=== PATIENT | female | born 1970 | race Caucasian/White ===

== ENCOUNTER 2021-12-23 05:39 | Day surgery (SDC) | payer OTHER, SELFPAY ==
[2021-12-23] VITALS (7 sets, daily range): BP systolic 99–120; BP diastolic 60–78; PULSE 65–85; RESP 16–18; TEMP 37.1–37.4; O2SAT 95–100; BMI 29.0
[2021-12-23] MEDS: Lactated Ringers 1,000 ML 15 ML IV (06:23)
[2021-12-23 06:28] LABS: Internal QC Validated? YES +Cl - CLEAR BKGD; Pregnancy, Urine Negative Negative
--- NOTE | 2021-12-23 06:30 | EGD_PTH ---
PATIENT: ANNE MARIE ODOM LOC: EN U#:[id number] AGE/SX: 51/F ROOM: RE12/23/[address]: Dr. Conrad Lyman DO : 1970 BED: DIS: 12/23/2021 SPEC #: [id number] RECD: 12/23/21 10:58 STATUS: JENNIFER ARJUN #: [id number] EVELIN: 12/23/21 06:[address]: Conrad Lyman DEPT: SURGICAL PATHOLOGY RECD BY: [place] ENTERED: 12/23/21 13:00 SP TYPE: EGD BIOPSY [facility] DR: Dr. Dot Rabago, DO Tissues: A - Gastric mucous membrane B - Esophagus, NOS C - COLON BIOPSY D - Rectum, NOS Procedures: Special Stain Group II Surgery Specimen Level IV Alcian Blue/PAS (control) HEADER OPERATION: Colonoscopy, EGD ([facility]) with biopsies PRE-OP DIAGNOSIS: GERD, family history of colon cancer TISSUE SUBMITTED: A ? Antrum biopsy for H. pylori and path, B ? Distal esophagus biopsy, C ? Splenic flexure polyp, D ? Rectum polyp MICROSCOPIC DIAGNOSIS A. Gastric antrum, biopsy: Mild chronic gastritis. See comment. B. Distal esophagus, biopsy: Gastroesophageal junctional mucosa with mild chronic inflammation. No evidence of goblet cell metaplasia. See comment. C. Colonic polyp at splenic flexure, biopsy: Tubular adenoma. D. Rectal polyp, biopsy: Fragments of tubular adenoma. AM:shan 12/24/2021 COMMENT A. The results of immunohistochemistry for Helicobacter pylori will be reported separately ([id number]). B. Alcian blue/PAS stain with matched control supports the above diagnosis. MICROSCOPIC DESCRIPTION Slides are reviewed. GROSS DESCRIPTION A - Received in fixative is one container labeled with the patient's name and designated antrum biopsy. The specimen consists of two irregular fragments of light vance soft tissue that in aggregate measure 0.6 x 0.3 x 0.1 cm. The specimen is totally submitted in one cassette. B - Received in fixative is one container labeled with the patient's name and designated distal esophagus biopsy. The specimen consists of multiple irregular fragments of light vance soft tissue that in aggregate measure 1 x 0.5 x 0.1 cm. The specimen is totally submitted in one cassette. C - Received in fixative is one container labeled with the patient's name and designated splenic flexure polyp. The specimen consists of a vance-pink polyp measuring 0.5 x 0.5 x 0.3 cm. The specimen is totally submitted in one cassette. D - Received in fixative is one container labeled with the patient's name and designated rectum polyp. The specimen consists of a vance-pink polyp measuring 0.5 x 0.5 x 0.4 cm. The specimen is totally submitted in one cassette. / SJ:rg 12/23/2021 TC:3 CPT: 97746 x4, 50524
--- NOTE | 2021-12-23 06:30 | IMM_PTH ---
PATIENT: ANNE MARIE ODOM LOC: EN U#:[id number] AGE/SX: 51/F ROOM: RE12/23/[address]: Dr. Conrad Lyman DO : 1970 BED: DIS: 12/23/2021 SPEC #: [id number] RECD: 12/23/21 13:44 STATUS: JENNIFER REQ #: [id number] EVELIN: 12/23/21 06:[address]: Conrad Lyman DEPT: IMMUNOHISTOCHEMISTRY RECD BY: Josselyn Capone ENTERED: 12/23/21 13:45 SP TYPE: IMMUNO OTHR DR: Dr. Dot Rabago, DO Tissues: A - Stomach, NOS Procedures: H Pylori (initial) PHYSICIAN & INSTITUTION [place] [id number] SPECIMEN INFORMATION: Tissue Source: A ? Antrum biopsy Clinical Info: GERD, family history of colon cancer Specimen Number: [id number] CPT code: 04410 METHODOLOGY: Deparaffinized sections of prefer/formalin-fixed tissue or PAP/DQ stained slides are incubated with monoclonal/polyclonal antibodies/oligonucleotide probes. Localization is made via biotin free immunoperoxidase method. Appropriate controls are performed and reacted as expected. Results on target cell population are indicated in the following table: RESULTS: ANTIBODY / CLONE RESULT Block A H Pylori (polyclonal) negative These tests were developed and their performance characteristics determined by [facility]. They may not have been cleared or approved by the U.S. Food and Drug Administration. The FDA has determined that such clearance or approval is not necessary. The above immunohistochemical/dualISH markers are ordered and reviewed by the Pathologist. INTERPRETATION: A. Antrum, biopsy: Negative for Helicobacter pylori organisms. AM:shan 12/24/2021
--- NOTE | 2021-12-23 06:34 | HP.PCM_ITS ---
History and Physical Date of Admission: 12/23/21 ALEXANDREA ODOM, is a 51 F who presents to the office today for Initial consultation. Alexandrea established with this clinic 09.27.21 as a self-referral for screening colonoscopy. She has never had a colonoscopy performed. Onset age 50, she began eating a lot of Taquis around that time. She noticed an increase of symptoms and stopped eating them. Also notes issue with spicy food and red sauces. Symptoms well managed with omeprazole 20mg BID when she remembers to take it. Symptoms occur about once a week with very infrequent severe reflux. Family history includes mother age 77 with colon cancer s/p surgery. ROS Const Constitutional: No fatigue, malaise, night sweats, weight change, sleep problems, abnormal sleep pattern or change in appetite ENT ENT: No difficulty swallowing, hoarseness or sore throat Cardio Cardiology: No chest pain at rest Gastro GI: No abdominal pain, belching, bloating, change in bowel habits, change in stool character, coffee ground emesis, constipation, cramping, diarrhea, heartburn, difficulty swallowing, feeling full early, excessive flatus, incontinent of stools, Vomiting blood/hematemesis, Blood in stool, loose stools, Black,tarry stools, nausea/dyspepsia, pain with swallowing, vomiting or other Musc Musculoskeletal: No joint pain Skin Skin: No yellowing of the eye or itchy eyes Neuro Neurology: No behavioral changes Psych Psychiatric: No abnormal sleep pattern, No anxiety, No behavioral changes, No change in appetite and No depression Endo Endocrine: No fatigue or weight change Aller/Imm Allergy/Immunologic: No itchy eyes Inocente/Lymp Hematologic/Lymphatic: No easy bleeding or easy bruising Exam Const General: cooperative and comfortable Nutritional Appearance: average body habitus and well nourished [facility] Head: normal to inspection Ears: hearing grossly normal bilaterally Nose: external nose normal Face and sinus: normal facial exam Mouth: oral mucosae normal Throat: posterior oropharynx normal Eyes General: appearance normal, both eyes and all related structures Neck Neck: normal visual inspection Chest Chest palpation & inspection: normal inspection of the chest and normal palpation of entire chest wall Resp Effort & Inspection: normal respiratory effort Auscultation: Bilateral: Clear to Auscultation Cardio Palpation: normal PMI Rate: regular rate Rhythm: regular rhythm GI Inspection: normal to inspection Auscultation: normal bowel sounds Percussion: normal to percussion Palpation: no hepatosplenomegaly Skin General: no rashes or lesions noted Neuro General: patient alert Extrem General: normal to inspection Psych Affect: normal affect Quality Reporting Tobacco Screening ([facility] 138) Smoking Status: Never smoker Assessment and Plan Assessment and Plan (1) Family history of colon cancer: ?Status:?Acute ?Plan - Dr. Martines Friend, DO: This will be her first colonoscopy.? Her mother developed colon cancer at 77.? Even though that is a first-degree relative due to her advanced age above 75 we do not list that as a significant risk factor.? She was explained alternatives, risk, benefits including outstanding bleeding, infection, sepsis, perforation, need for emergent surgery .? She will have an ASA of 1. (2) GERD (gastroesophageal reflux disease): ?Status:?Acute ?Plan - Dr. Martines Friend, DO: She has a 2-year history of severe GERD that does very well with twice daily omeprazole 20mg.? I would recommend screening for Tyler's esophagus for her and I would switch her to 40 mg of pantoprazole once a day in the morning.? I would not give her twice a day PPI therapy unless she was determined to have long segment Tyler's esophagus, refractory to 40 mg of pantoprazole or equivalent dosing and refractory H2 receptor tejinder in the evening in the setting of known gastroparesis. I have re-examined the patient. There are no clinical changes since date of exam.
--- NOTE | 2021-12-23 07:08 | OP.EGD_ITS ---
Patient Name: Alexandrea Quezada Procedure Date: 12/23/2021 6:10 AM Date of : 1970 Age: 51 Procedure: Upper GI endoscopy Indications: Dyspepsia, Heartburn, Failure to respond to medical treatment Providers: Conrad Lyman DO Medicines: Monitored Anesthesia Care Patient Profile: This is a 51 year old female. Refer to note in patient chart for documentation of history and physical. Patient has symptoms of chronic dyspepsia. Complications: No immediate complications. Procedure: Pre-Anesthesia Assessment: - Prior to the procedure, a History and Physical was performed, and patient medications and allergies were reviewed. The risks and benefits of the procedure and the sedation options and risks were discussed with the patient. All questions were answered and informed consent was obtained. Patient identification and proposed procedure were verified by the physician in the pre-procedure area. Mental Status Examination: alert and oriented. Airway Examination: normal oropharyngeal airway and neck mobility. Respiratory Examination: clear to auscultation. CV Examination: normal. Prophylactic Antibiotics: The patient does not require prophylactic antibiotics. Prior Anticoagulants: The patient has taken no previous anticoagulant or antiplatelet agents. ASA Grade Assessment: II - A patient with mild systemic disease. After reviewing the risks and benefits, the patient was deemed in satisfactory condition to undergo the procedure. The anesthesia plan was to use moderate sedation / analgesia (conscious sedation). Immediately prior to administration of medications, the patient was re-assessed for adequacy to receive sedatives. The heart rate, respiratory rate, oxygen saturations, blood pressure, adequacy of pulmonary ventilation, and response to care were monitored throughout the procedure. The physical status of the patient was re-assessed after the procedure. After obtaining informed consent, the endoscope was passed under direct vision. Throughout the procedure, the patient's blood pressure, pulse, and oxygen saturations were monitored continuously. The Colonoscope was introduced through the mouth, and advanced to the second part of duodenum. The upper GI endoscopy was accomplished without difficulty. The patient tolerated the procedure well. Scope In: 6:40:25 AM Scope Out: 6:45:11 AM Total Procedure Duration Time 0 hours 4 minutes 46 seconds Findings: The Z-line was irregular and was found 37 cm from the incisors. Biopsies were taken with a cold forceps for histology. Verification of patient identification for the specimen was done. Estimated blood loss was minimal. A small hiatal hernia was present. Localized mild inflammation characterized by erosions and erythema was found in the gastric antrum. Biopsies were taken with a cold forceps for histology. Verification of patient identification for the specimen was done. Estimated blood loss was minimal. The first portion of the duodenum was normal. Biopsies were taken with a cold forceps for histology. Verification of patient identification for the specimen was done. Estimated blood loss was minimal. Impression: - Z-line irregular, 37 cm from the incisors. Biopsied. - Small hiatal hernia. - Gastritis. Biopsied. - Normal first portion of the duodenum. Biopsied. Recommendation: - Discharge patient to home. - Resume previous diet. - Continue present medications. - Await pathology results. Procedure Code(s): --- Professional --- 00094, Esophagogastroduodenoscopy, flexible, transoral; with biopsy, single or multiple CPT copyright 2017 [employer]. All rights reserved. The codes documented in this report are preliminary and upon technical services assistant review may be revised to meet current compliance requirements. Conrad Lyman DO 12/23/2021 7:07:38 AM This report has been signed electronically. Number of Addenda: 1 Note Initiated On: 12/23/2021 6:10 AM Addendum Number: 1 Addendum Date: 02/20/2022 6:26:16 AM MAC was used as sedation for this procedure. Conrad Lyman DO 02/20/2022 6:26:20 AM This report has been signed electronically.
--- NOTE | 2021-12-23 07:08 | OP.CCLET_ITS ---
02/20/2022 Dot Rabago Do Re : Upper GI endoscopy procedure for Alexandrea Quezada Dear Dr. Rabago This procedure was performed on Thursday, December 23, 2021. My impressions and recommendations are as follows: Impressions : - Z-line irregular, 37 cm from the incisors. Biopsied. - Small hiatal hernia. - Gastritis. Biopsied. - Normal first portion of the duodenum. Biopsied. Recommendations : - Discharge patient to home. - Resume previous diet. - Continue present medications. - Await pathology results. My findings are described in the full procedure note, which is enclosed. If I can be of further assistance, please feel free to contact me at . Sincerely, Conrad Lyman, 12/23/2021 7:07:38 AM This report has been signed electronically.
--- NOTE | 2021-12-23 07:10 | OP.CCLET_ITS ---
02/20/2022 Dot Rabago Do Re : Colonoscopy procedure for Alexandrea Quezada Dear Dr. Rabago This procedure was performed on Thursday, December 23, 2021. My impressions and recommendations are as follows: Impressions : - Diverticulosis in the recto-sigmoid colon, in the sigmoid colon, at the hepatic flexure and in the ascending colon. - Two 1 to 2 mm polyps in the rectum and at the splenic flexure, removed with a hot snare. Resected and retrieved. Recommendations : - Repeat colonoscopy in 5 years for surveillance. - Return to GI office. - Continue present medications. My findings are described in the full procedure note, which is enclosed. If I can be of further assistance, please feel free to contact me at . Sincerely, Conrad Lyman, 12/23/2021 7:10:03 AM This report has been signed electronically.
--- NOTE | 2021-12-23 07:10 | OP.COLON_ITS ---
Patient Name: Alexandrea Quezada Procedure Date: 12/23/2021 6:45 AM Date of : 1970 Age: 51 Procedure: Colonoscopy Indications: Screening for colorectal malignant neoplasm Providers: Conrad Lyman DO Medicines: Monitored Anesthesia Care Patient Profile: This is a 51 year old female. Refer to note in patient chart for documentation of history and physical. Patient has symptoms of chronic dyspepsia. Last Colonoscopy: none. The patient's first colonoscopy is today. Complications: No immediate complications. Procedure: Pre-Anesthesia Assessment: - Prior to the procedure, a History and Physical was performed, and patient medications and allergies were reviewed. The risks and benefits of the procedure and the sedation options and risks were discussed with the patient. All questions were answered and informed consent was obtained. Patient identification and proposed procedure were verified by the physician in the pre-procedure area. Mental Status Examination: alert and oriented. Airway Examination: normal oropharyngeal airway and neck mobility. Respiratory Examination: clear to auscultation. CV Examination: normal. Prophylactic Antibiotics: The patient does not require prophylactic antibiotics. Prior Anticoagulants: The patient has taken no previous anticoagulant or antiplatelet agents. ASA Grade Assessment: II - A patient with mild systemic disease. After reviewing the risks and benefits, the patient was deemed in satisfactory condition to undergo the procedure. The anesthesia plan was to use moderate sedation / analgesia (conscious sedation). Immediately prior to administration of medications, the patient was re-assessed for adequacy to receive sedatives. The heart rate, respiratory rate, oxygen saturations, blood pressure, adequacy of pulmonary ventilation, and response to care were monitored throughout the procedure. The physical status of the patient was re-assessed after the procedure. After I obtained informed consent, the scope was passed under direct vision. Throughout the procedure, the patient's blood pressure, pulse, and oxygen saturations were monitored continuously. The Colonoscope was introduced through the anus and advanced to the terminal ileum. The colonoscopy was performed without difficulty. The patient tolerated the procedure well. The quality of the bowel preparation was good. Scope In: 6:46:43 AM Scope Withdrawal Time 0 hours 8 minutes 46 seconds Scope Out: 6:59:24 AM Total Procedure Duration Time 0 hours 12 minutes 41 seconds Findings: The perianal and digital rectal examinations were normal. A few small and large-mouthed diverticula were found in the recto-sigmoid colon, sigmoid colon, hepatic flexure and ascending colon. Two sessile polyps were found in the rectum and splenic flexure. The polyps were 1 to 2 mm in size. These polyps were removed with a hot snare. Resection and retrieval were complete. Verification of patient identification for the specimen was done. Estimated blood loss was minimal. Impression: - Diverticulosis in the recto-sigmoid colon, in the sigmoid colon, at the hepatic flexure and in the ascending colon. - Two 1 to 2 mm polyps in the rectum and at the splenic flexure, removed with a hot snare. Resected and retrieved. Recommendation: - Repeat colonoscopy in 5 years for surveillance. - Return to GI office. - Continue present medications. Procedure Code(s): --- Professional --- 37345, Colonoscopy, flexible; with removal of tumor(s), polyp(s), or other lesion(s) by snare technique CPT copyright 2017 [employer]. All rights reserved. The codes documented in this report are preliminary and upon computer language coder review may be revised to meet current compliance requirements. Conrad Lyman DO 12/23/2021 7:10:03 AM This report has been signed electronically. Number of Addenda: 1 Note Initiated On: 12/23/2021 6:45 AM Addendum Number: 1 Addendum Date: 02/20/2022 6:26:28 AM MAC was used as sedation for this procedure. Conrad Lyman DO 02/20/2022 6:26:34 AM This report has been signed electronically.
== END 2021-12-23 07:50 | disposition home or self-care (01) ==
LOC: EN 05:40 → AC 05:43
PROVIDERS: Anesthesiology; PCP Family Medicine; Referring Provider Family Medicine; Visit Provider Internal Medicine Gastroenterology
PROC: 0DJD8ZZ Inspection of Lower Intestinal Tract, Via Natural or Artificial Opening Endoscopic (ICD-10-PCS; CPT 45378; principal; 2021-12-23 06:25)
DX: Z12.11 Encounter for screening for malignant neoplasm of colon (principal); D12.3 Benign neoplasm of transverse colon; D12.8 Benign neoplasm of rectum; K21.9 Gastro-esophageal reflux disease without esophagitis; K44.9 Diaphragmatic hernia without obstruction or gangrene; K29.50 Unspecified chronic gastritis without bleeding; K57.30 Diverticulosis of large intestine without perforation or abscess without bleeding; E78.00 Pure hypercholesterolemia, unspecified; E03.9 Hypothyroidism, unspecified; Z79.899 Other long term (current) drug therapy; Z80.0 Family history of malignant neoplasm of digestive organs
CPT/HCPCS: 43239; 45385; 81025; 88305; 88313; 88342; J7120; J2405

== ENCOUNTER 2022-10-02 20:30 | Observation (INO) | payer OTHER, SELFPAY ==
[2022-10-02 20:31] VITALS: BP 131/81; PULSE 102; RESP 18; TEMP 36.4; O2SAT 100; BMI 31.5
--- NOTE | 2022-10-02 20:52 | EX.ED.DYSGE1 ---
HPI History of Present Illness Chief Complaint: Flank Pain [facility] Medical History (Updated 01/06/22 @ 16:[address] Martines Friend, DO) Anxiety Back pain Gastric reflux High cholesterol Hypothyroid Wears dentures Home Medications atorvastatin 20 mg tablet 20 mg PO DAILY 12/19/21 [History Last Taken Unknown] biotin 1 mg capsule 1 mg PO DAILY 12/19/21 [History Last Taken Unknown] levothyroxine 100 mcg tablet 100 mcg PO DAILY 12/19/21 [History Last Taken Unknown] magnesium oxide 400 mg (241.3 mg magnesium) tablet 1 tab PO DAILY 12/19/21 [History Last Taken Unknown] xoujmxulsbdk-Nj-ejsm-minerals 18 mg-0.4 mg tablet 1 tab PO DAILY 12/19/21 [History Last Taken Unknown] pantoprazole 40 mg tablet,delayed release (Protonix) 40 mg PO BID #60 tabs 01/13/22 [Rx Last Taken Unknown] Allergy/AdvReac Type Severity Reaction Status Date / Time No Known Allergies Allergy Verified 10/02/22 20:33 Surgical History (Updated 12/19/21 @ 12:23 by Anjelica Quezada) No pertinent past surgical history Social History Smoking Status: Never smoker EXAM Physical Exam Const Vital Signs: 10/02/22 20:31 10/02/22 20:33 Temperature 97.6 F L Temperature Source Temporal Pulse Rate 102 H Respiratory Rate 18 Respiratory Effort Normal Non-Labored Respiratory Pattern Normal Blood Pressure 131/81 H Blood Pressure Mean 97 Pulse Ox 100 Oxygen Delivery Method Room Air [facility] Narrative Medical decision making narrative: HISTORY OF PRESENT ILLNESS: 52-year-old female here with flank pain. Patient states she was diagnosed with a 6 mm right-sided kidney stone earlier today. States since then she had increasing pain, nausea. REVIEW OF SYSTEMS: Pertinent positives: Flank pain, nausea and vomiting Pertinent negatives: syncope, CP, SOB. PHYSICAL EXAM: Nursing triage notes reviewed, Vital signs reviewed Constitutional: please see mdm HENT: MMM Eyes: Pupils equal round and reactive to light, Extraocular muscles intact Neck: No stridor, no JVD, full neck ROM Lungs: Clear to auscultation, No wheezing or rales. No increased work of breathing, no conversational dyspnea, no accessory muscle use, no nasal flaring. No respiratory distress noted Heart: Regular rate and rhythm, No murmurs, No rubs and No gallops, 2+ distal pulses (radial, femoral, posterior tibial) in all extremities Abdomen: Soft, there is no tenderness, rigidity, rebound or guarding, no obvious peritoneal signs, no palpable pulsatile abdominal masses, no auscultated abdominal bruit : Right CVA tenderness Extremities: No edema Neuro: No focal neurological deficits, cranial nerves II through XII intact, 5/5 strength in all extremities. Intact sensation to light touch in all extremities, 2+ reflexes bilateral patella tendons. Normal gait. No ataxia. Skin: No rash or lesions noted MEDICAL DECISION MAKING: Chief Complaint: Flank pain External records reviewed: No recent advanced imaging of the abdomen or pelvis noted in our chart. Per hospital records patient had a 6 mm distal ureteral stone with hydronephrosis diagnosed on outside CT scan MDM Narrative: Patient was initially hemodynamically stable, afebrile she is nontoxic-appearing however she is in acute distress from flank pain. She was recently diagnosed with a 6 mm kidney stone. I do not have these records available so I repeated the majority of the lab and imaging work-up including a CT scan. Labs without evidence of SAMUEL. There was evidence of systemic inflammation but no significant anemia. There is no acute kidney injury. Patient's urine did not show signs of infection. She was given IV narcotics, Toradol Zofran and fluids. She was reassessed she is still significant pain still nauseous. Requiring further IV narcotic pain medicine. Given intractable pain, relatively large stone, hydronephrosis and signs of systemic inflammation I recommended the patient be admitted to the hospital to undergo further pain control and to get urologic evaluation. I discussed the case with Dr. Driscoll who agreed to admit the patient. Factors affecting care: GERD Social determinants of health: None History obtained from others: The patient's family Shared decision making: I will have a discussion with the patient and or visitors regarding risk/benefits of further testing or admission. They will be made aware of of the risk/benefits inherent in this decision they will be given the opportunity to voice understanding. Consults: Urology Lab Data Attestation: I reviewed the patient's lab results. Lab results narrative: CBC with leukocytosis suggestive of systemic inflammation, no anemia or thrombocytopenia noted BMP without evidence of significant electrolyte abnormalities, no anion gap, no acute kidney injury. UA without evidence of infection noted ketones suggestive of malnutrition and dehydration Urine test is negative Labs: Laboratory Results - last 24 hr 10/02/22 10/02/22 10/02/22 20:56 20:56 20:56 WBC 16.3 H RBC 4.72 Hgb 14.0 Hct 43.1 MCV 91.3 MCH 29.7 MCHC 32.5 RDW Std Deviation 40.7 RDW Coeff of Vidhi 12.2 Plt Count 310 MPV 10.9 Immature Gran % (Auto) 0.700 Neut % (Auto) 90.8 H Lymph % (Auto) 5.4 L [place] % (Auto) 2.7 Eos % (Auto) 0.0 Baso % (Auto) 0.4 Absolute Neuts (auto) 14.8 H Absolute Lymphs (auto) 0.88 Nucleated RBC % 0 Sodium 139 Potassium 3.9 Chloride 109 H Carbon Dioxide 23.0 Anion Gap 7 BUN 12 Creatinine 0.78 Estim Creat Clear Calc 75.92 Est GFR (MDRD) Af Amer 99 Est GFR (MDRD) Non-Af 82 BUN/Creatinine Ratio 15.4 Glucose 121 H Calcium 8.7 Serum , Qual Urine Color Yellow Urine Clarity Sl. Cloudy Urine pH 6.5 Ur Specific Chrisman 1.015 Urine Protein 15 H Urine Glucose (UA) Normal Urine Ketones 150 A* Urine Occult Blood 25 H Urine Nitrite Negative Urine Bilirubin Negative Urine Urobilinogen Normal Ur Leukocyte Esterase Negative Urine RBC 0-5 SEEN Urine WBC 0 SEEN Ur Squamous Epith Cells 0-5 SEEN Urine Bacteria 0 SEEN Urine Mucus 0 SEEN 10/02/22 10/02/22 21:30 21:30 WBC RBC Hgb Hct MCV MCH MCHC RDW Std Deviation RDW Coeff of Vidhi Plt Count MPV Immature Gran % (Auto) Neut % (Auto) Lymph % (Auto) [place] % (Auto) Eos % (Auto) Baso % (Auto) Absolute Neuts (auto) Absolute Lymphs (auto) Nucleated RBC % Sodium Potassium Chloride Carbon Dioxide Anion Gap BUN Creatinine Estim Creat Clear Calc Est GFR (MDRD) Af Amer Est GFR (MDRD) Non-Af BUN/Creatinine Ratio Glucose Calcium Serum , Qual NEGATIVE Urine Color Yellow Urine Clarity Sl. Cloudy Urine pH 6.5 Ur Specific Chrisman 1.015 Urine Protein 15 H Urine Glucose (UA) 50 H Urine Ketones 150 A* Urine Occult Blood 10 H Urine Nitrite Negative Urine Bilirubin Negative Urine Urobilinogen Normal Ur Leukocyte Esterase Negative Urine RBC 0-5 SEEN Urine WBC 0-5 SEEN Ur Squamous Epith Cells 0 SEEN Urine Bacteria 0 SEEN Urine Mucus 0 SEEN Discharge Plan Triage Chief Complaint: Flank Pain ED Provider: Prashanth Meza Dx/Rx/DC Orders Prescriptions: No Action Women's Daily Multivitamin 18-0.4 mg Tablet 1 tab PO DAILY biotin 1 mg Capsule 1 mg PO DAILY atorvastatin 20 mg tablet 20 mg PO DAILY levothyroxine 100 mcg Tablet 100 mcg PO DAILY magnesium oxide 400 mg (241.3 mg magnesium) tablet 1 tab PO DAILY Label Comments: TAKE 1 TABLET BY MOUTH NIGHTLY AT BEDTIME pantoprazole [Protonix] 40 mg tablet,delayed release (DR/EC) 40 mg PO BID Qty: 60 2RF Rx Instructions: take two times a day for eight weeks then once a day. Primary Care Provider: NOT,DEFINED Referrals: NOT,DEFINED [Primary Care Provider] -
[2022-10-02] MEDS: 0.9% Normal Saline 1,000 ML 999 ML IV (20:54)
[2022-10-02] MEDS: Ondansetron 4 MG/2 ML Vial IV (20:54)
[2022-10-02] MEDS: Ketorolac 15 MG/ML Vial IV (20:54)
[2022-10-02] MEDS: Morphine 4 MG/ML Syringe IV (20:54)
[2022-10-02 21:02] LABS: Bacteria 0 SEEN /hpf (None Seen); Mucous, Urine 0 SEEN /hpf (<or=2+); White Blood Cells 0 SEEN /hpf (0-5)
[2022-10-02 21:04] LABS: Absolute Lymphocyte Count 0.88 X10^3/uL (0.83-4.51); Absolute Neutrophil Count 14.8 X10^3/uL (2.0-7.7); Basophil# 0.06 X10^3/uL; Basophil% 0.4 % (0-1); Hematocrit 43.1 % (37-47); Lymphocyte # 0.88 X10^3/ul (0.83-4.51); Lymphocyte % 5.4 % (19-41); Mean Corp Hgb Conc 32.5 g/dL (32-36); Mean Corpuscular Hgb 29.7 pg (27.0-32.0); Mean Corpuscular Volume 91.3 fL (81-99); Mean Platelet Vol. 10.9 fl (6.2-12.0); Monocyte# 0.44 X10^3/uL; Monocyte% 2.7 % (0-10); NRBC Flagged by Analyzer 0 % (0-5); Neutrophil # 14.81 X10^3/uL (2.7-7.7); Neutrophil % 90.8 % (47-70); Platelet Count 310 K/mm3 (150-450); RBC Distribution Width CV 12.2 % (11.6-14.6); RBC Distribution Width SD 40.7 fl (35.1-43.9); Red Blood Count 4.72 M/mm3 (4.2-5.4); White Blood Count 16.3 K/mm3 (4.4-11.0)
[2022-10-02 21:28] LABS: Color, Urine Yellow (Yellow); Glucose, Dipstick Normal (Normal); Leukocyte Esterase-Dipstick Negative /ul (Negative); Nitrite-Dipstick Negative (Negative); Occult Blood-Urine 25 /ul (Negative); Protein-Dipstick 15 mg/dl (Negative); Specific Gravity, Urine 1.015 (1.002-1.030); Urine Bilirubin Dipstick Negative (Negative); Urine Clarity Sl. Cloudy (Clear); Urine Urobilinogen Normal (Normal); Urine pH 6.5 (5.0 - 8.0)
[2022-10-02 21:29] LABS: Anion Gap 7 (5-15); BUN 12 mg/dL (7-18); BUN/Creat Ratio 15.4 RATIO (10-20); Calcium,Total 8.7 mg/dL (8.5-10.1); Chloride 109 mmol/L (98-107); Creatinine, Serum 0.78 mg/dL (0.55-1.02); EST Glomerular Filtration Rate 82 mL/min (>60); Est Glom Filt Rate - Afr Amer 99 mL/min (>60); Estimated Creatinine Clearance 75.92 ml/min; Glucose 121 mg/dL (74-106); Potassium 3.9 mmol/L (3.5-5.1); Sodium Level 139 mmol/L (136-145)
[2022-10-02 21:32] LABS: Ketone-Dipstick 150 mg/dl (Negative)
[2022-10-02 21:34] LABS: Red Blood Cells-Urine 0-5 SEEN /hpf (0-5); Squamous Epithelial Cells - UA 0-5 SEEN /hpf (5-10)
[2022-10-02 22:15] LABS: Bacteria 0 SEEN /hpf (None Seen); Mucous, Urine 0 SEEN /hpf (<or=2+); Squamous Epithelial Cells - UA 0 SEEN /hpf (5-10)
[2022-10-02 22:36] LABS: Color, Urine Yellow (Yellow); Glucose, Dipstick 50 mg/dl (Normal); Leukocyte Esterase-Dipstick Negative /ul (Negative); Nitrite-Dipstick Negative (Negative); Occult Blood-Urine 10 /ul (Negative); Protein-Dipstick 15 mg/dl (Negative); Specific Gravity, Urine 1.015 (1.002-1.030); Urine Bilirubin Dipstick Negative (Negative); Urine Clarity Sl. Cloudy (Clear); Urine Urobilinogen Normal (Normal); Urine pH 6.5 (5.0 - 8.0)
[2022-10-02 22:40] LABS: Ketone-Dipstick 150 mg/dl (Negative)
[2022-10-02 22:41] LABS: Internal QC Validated? YES +Cl - CLEAR BKGD; Pregnancy, Serum, hCG Quali. NEGATIVE Negative
[2022-10-02 22:50] LABS: Red Blood Cells-Urine 0-5 SEEN /hpf (0-5); White Blood Cells 0-5 SEEN /hpf (0-5)
[2022-10-02] MEDS: HYDROmorphone 0.5 MG/0.5 ML SYRINGE IV (23:36)
[2022-10-03] VITALS (11 sets, daily range): BP systolic 104–144; BP diastolic 64–84; PULSE 72–107; RESP 16–18; TEMP 36.6–37.3; O2SAT 92–100; BMI 31.8
[2022-10-03] MEDS: Lactated Ringers 1,000 ML 125 ML IV ×2 (01:06→08:15)
[2022-10-03] MEDS: Ketorolac 30 MG/ML Syringe IV ×2 (01:06→10:33)
[2022-10-03 02:06] LABS: Thyroid Stim Hormone (TSH) 2.12 uIU/mL (0.358-3.74)
[2022-10-03] MEDS: Morphine 2 MG/ML Syringe IV ×2 (05:18→08:16)
--- NOTE | 2022-10-03 11:04 | HP.PCM_ITS ---
HPI - General General Date of Admission: 10/02/22 Date of Service: 10/03/22 Chief Complaint: Right flank pain, abdominal pain, nausea and vomiting HPI Narrative The patient is a 52-year-old female who was at an outlying hospital 2 days ago a nd a CT scan was performed for flank pain and nausea and vomiting revealing a 6 mm distal right ureteral calculus. She presented to the emergency room in [place] with uncontrolled pain, nausea and vomiting. Her pain is still not well controlled despite intravenous medication administration. We discussed options and she has decided to proceed with surgical intervention. Informed consent was obtained. [facility] Medical History Anxiety Back pain Flank pain Gastric reflux High cholesterol Hypothyroid Ureteral calculus Wears dentures Home Medications atorvastatin 20 mg tablet 20 mg PO DAILY Check with primary doctor 12/19/21 [History Last Taken 10/02/22] biotin 1 mg capsule 1 mg PO DAILY Check with primary doctor 12/19/21 [History Last Taken 10/01/22] levothyroxine 100 mcg tablet 100 mcg PO DAILY Check with primary doctor 12/19/21 [History Last Taken 10/02/22] djurfchugkmo-Rd-nhva-minerals 18 mg-0.4 mg tablet 1 tab PO DAILY Check with primary doctor 12/19/21 [History Last Taken 09/26/22] Allergy/AdvReac Type Severity Reaction Status Date / Time No Known Allergies Allergy Verified 10/02/22 20:33 Surgical History No pertinent past surgical history Social History Smoking Status: Never smoker ROS Constitutional Constitutional: Reports systems reviewed and no addt'l complaints, except as documented; Denies fever(s) Eyes Eyes: Reports systems reviewed and no addt'l complaints, except as documented ENT HEENT: Reports systems reviewed and no addt'l complaints, except as documented Cardiovascular Cardiovascular: Reports systems reviewed and no addt'l complaints, except as documented, nausea and vomiting; Denies chest pain or dyspnea Respiratory/Chest Respiratory/Chest: Denies chest congestion, inability to speak or tachypnea Gastrointestinal Gastrointestinal: Reports abdominal pain, nausea and vomiting Genitourinary Genitourinary: Reports flank pain, low back pain, urinary frequency and urinary urgency; Denies hematuria Musculoskeletal Musculoskeletal: Reports systems reviewed and no addt'l complaints, except as d ocumented Integumentary Integumentary: Reports systems reviewed and no addt'l complaints, except as documented Neurologic Neurologic: Reports systems reviewed and no addt'l complaints, except as documen fer Psychiatric Psychiatric: Reports systems reviewed and no addt'l complaints, except as documented Endocrine Endocrinology: Reports systems reviewed and no addt'l complaints, except as documented Hematologic/Lymphatic Hematologic/Lymphatic: Reports systems reviewed and no addt'l complaints, except as documented Allergic/Immunologic Allergic/Immunologic: Reports systems reviewed and no addt'l complaints, except as documented Vital Signs Vital Signs Vital Signs: 10/02/22 20:31 10/02/22 20:33 10/03/22 00:14 Temperature 97.6 F L 97.8 F Temperature Source Temporal Temporal Pulse Rate 102 H 72 Respiratory Rate 18 18 Respiratory Effort Normal Non-Labored Respiratory Depth Respiratory Pattern Normal Blood Pressure 131/81 H 135/64 H Blood Pressure Mean 97 87 Blood Pressure Source Blood Pressure Position Blood Pressure Location Pulse Ox 100 98 Oxygen Delivery Method Room Air Room Air 10/03/22 00:31 10/03/22 00:25 10/03/22 05:21 Temperature 97.8 F 99.1 F Temperature Source Temporal Oral Pulse Rate 107 H 102 H Respiratory Rate 18 18 Respiratory Effort Normal Non-Labored Respiratory Depth Normal Respiratory Pattern Normal Blood Pressure 137/76 H 144/81 H Blood Pressure Mean 96 102 Blood Pressure Source Monitor Monitor Blood Pressure Position Semi-Fowlers Semi-Fowlers Blood Pressure Location Right Arm Right Arm Pulse Ox 100 99 Oxygen Delivery Method Room Air Room Air Room Air 10/03/22 05:20 10/03/22 07:05 10/03/22 08:19 Temperature Temperature Source Pulse Rate Respiratory Rate Respiratory Effort Normal Non-Labored Normal Non-Labored Respiratory Depth Normal Normal Respiratory Pattern Normal Normal Blood Pressure Blood Pressure Mean Blood Pressure Source Blood Pressure Position Blood Pressure Location Pulse Ox 99 Oxygen Delivery Method Room Air Room Air Room Air 10/03/22 10:30 Temperature 98.8 F Temperature Source Oral Pulse Rate 99 Respiratory Rate 18 Respiratory Effort Respiratory Depth Respiratory Pattern Blood Pressure 136/84 H Blood Pressure Mean 101 Blood Pressure Source Monitor Blood Pressure Position Semi-Fowlers Blood Pressure Location Right Arm Pulse Ox 99 Oxygen Delivery Method Room Air Weight Weight: 86.8 kg Body Mass Index (BMI) 31.8 Physical Exam Const alert and oriented x3 Orientation / Consciousness: awake, oriented to person and oriented to place HEENT normocephalic, head/scalp atraumatic, hearing grossly normal bilaterally and external nose normal Eyes General Eye: normal appearance of both eyes Neck General: normal visual inspection and trachea midline Lymph Lymphatic: no lymphedema noted Chest inspection of chest normal Resp normal respiratory effort, normal air movement and no retractions Cardio Rate: tachycardic GI soft to palpation and non-distended Bladder / Kidney Exam: CVA tenderness right Back/Spine General Back: CVA tenderness right Extremity normal to inspection Skin no rashes or lesions noted, no wounds, skin turgor normal, no jaundice, no petechiae and no mottling Neuro oriented x3, CN's II-XII intact bilaterally and moves all extremities Psych mental status grossly normal and thought process normal Results Lab / Micro Data Result Diagrams: 10/02/22 20:56 10/02/22 20:56 Labs: Laboratory Results - last 24 hr 10/02/22 20:56: Urine Color Yellow, Urine Clarity Sl. Cloudy, Urine pH 6.5, Ur Specific [place] 1.015, Urine Protein 15 H, Urine Glucose (UA) Normal, Urine Ketones 150 A*, Urine Occult Blood 25 H, Urine Nitrite Negative, Urine Bilirubin Negative, Urine Urobilinogen Normal, Ur Leukocyte Esterase Negative, Urine RBC 0-5 SEEN, Urine WBC 0 SEEN, Ur Squamous Epith Cells 0-5 SEEN, Urine Bacteria 0 SEEN, Urine Mucus 0 SEEN 10/02/22 20:56: WBC 16.3 H, RBC 4.72, Hgb 14.0, Hct 43.1, MCV 91.3, MCH 29.7, MCHC 32.5, RDW Std Deviation 40.7, RDW Coeff of Vidhi 12.2, Plt Count 310, MPV 10.9, Immature Gran % (Auto) 0.700, Neut % (Auto) 90.8 H, Lymph % (Auto) 5.4 L, [place] % (Auto) 2.7, Eos % (Auto) 0.0, Baso % (Auto) 0.4, Absolute Neuts (auto) 14.8 H, Absolute Lymphs (auto) 0.88, Nucleated RBC % 0 10/02/22 20:56: Sodium 139, Potassium 3.9, Chloride 109 H, Carbon Dioxide 23.0, Anion Gap 7, BUN 12, Creatinine 0.78, Estim Creat Clear Calc 75.92, Est GFR (MDRD) Af Amer 99, Est GFR (MDRD) Non-Af 82, BUN/Creatinine Ratio 15.4, Glucose 121 H, Calcium 8.7 10/02/22 20:56: TSH 2.12 10/02/22 21:30: Serum , Qual NEGATIVE 10/02/22 21:30: Urine Color Yellow, Urine Clarity Sl. Cloudy, Urine pH 6.5, Ur Specific [place] 1.015, Urine Protein 15 H, Urine Glucose (UA) 50 H, Urine Ketones 150 A*, Urine Occult Blood 10 H, Urine Nitrite Negative, Urine Bilirubin Negative, Urine Urobilinogen Normal, Ur Leukocyte Esterase Negative, Urine RBC 0-5 SEEN, Urine WBC 0-5 SEEN, Ur Squamous Epith Cells 0 SEEN, Urine Bacteria 0 SEEN, Urine Mucus 0 SEEN Assessment & Plan Assessment/Plan (1) Ureteral calculus: (2) Flank pain: PLAN: Plan proceed with cystoscopy with right ureteroscopy, holmium laser lithotripsy with stone basket extraction and right ureteral stent insertion. Informed consent has been obtained
--- NOTE | 2022-10-03 11:27 | DCINST_ITS ---
Discharge Instructions Diet Discharge Diet: No restrictions Activity Discharge Activity: Return to Normal Activity May resume sexual activity in: No Restrictions Dressing / Incision Call your doctor if you observe: Fever of 101 or Higher, Inability to urinate and Inability to have a bowel movement Follow Up Care Please Follow Up With: Macarena Driscoll MD When: Call office for appointment Test Results: Test results from this visit will be discussed in further detail at your follow- up appointment, if applicable. Discharge Plan Admission Admit Date/Time: 10/02/22 23:49 Attending Provider: Macarena Driscoll Discharge Orders/Prescriptions Prescriptions: New oxycodone-acetaminophen [Percocet] 5-325 mg tablet 1 tab PO Q8H PRN (Reason: pain) 3 Days Qty: 10 0RF cephalexin [cephalexin] 500 mg capsule 500 mg PO Q12 3 Days Qty: 6 0RF phenazopyridine [Pyridium] 200 mg tablet 200 mg PO TID PRN PRN (Reason: Bladder Spasms) 7 Days Qty: 30 0RF Continued dolopssvtinn-Go-xftj-minerals 18-0.4 mg Tablet 1 tab PO DAILY biotin 1 mg Capsule 1 mg PO DAILY atorvastatin 20 mg tablet 20 mg PO DAILY levothyroxine 100 mcg Tablet 100 mcg PO DAILY Referrals / Follow Up: NOT,DEFINED [Non-Staff] - Disposition Disposition (needs filled in before D/C Order can be placed): Home, Self Care
--- NOTE | 2022-10-03 11:30 | PCM.OPRPT ---
Report of Operation Date of Procedure: 10/03/22 Pre-Operative Diagnosis: Right ureteral calculus Post-Operative Diagnosis: Same, bladder lesion small Surgery/Procedure Performed:: Cystoscopy, right ureteroscopy, right ureteral stent insertion, bladder biopsy with fulguration Surgeon: Macarena Driscoll Type of Anesthesia: General Specimen's removed: Bladder biopsy Description of Procedure: The patient is a 52-year-old female with an obstructing right ureteral calculus. She presents for surgical intervention and informed consent has been obtained. The patient was taken to the operating room and placed on the operating room table. Anesthesia monitored the head, neck, airway, IV access and vital signs throughout the case. Once anesthesia was appropriately administered, the patient was placed into dorsolithotomy position and was prepped and draped in usual sterile fashion. The cystoscope was inserted through the urethra under direct visualization into the urinary bladder. The bladder mucosa was visualized in its entirety and a 3 to 4 mm lesion was identified on the right posterior bladder wall. The remainder of the exam was within normal limits. The right ureteral orifice was identified and intubated with an 0.035 Glidewire. The semirigid ureteroscope was then carefully advanced into the ureter. The ureter was very narrow and there was the beginning of a false passage. The decision was made to halt the procedure. The cystoscope was then used for placement of a 6 Armenian 24 cm JJ stent with good positioning in the renal pelvis as well as the urinary bladder. At this time a biopsy excision was performed on the small bladder lesion of the posterior bladder wall. The area was fulgurated for hemostatic control and tissue treatment. The patient's bladder was then emptied, and the patient was awakened and taken to the recovery room in good condition. There were no complications during this procedure. Grafts/Implants Used: 6 Armenian x 24 cm JJ stent Complications None Admit VTE Documentation VTE Present on Admission: Yes VTE Mechan Device Prophylaxis: SCD's VTE Pharm Prophylaxis ordered?: No Reason prophylaxis not ordered:: Treatment Not Indicated
--- NOTE | 2022-10-03 12:30 | BLA_PTH ---
PATIENT: ANNE MARIE ODOM LOC: MS3 U#:[id number] AGE/SX: 52/F ROOM: ND315 RE10/02/[address]: Dr. Macarena Driscoll MD : 1970 BED: 1 DIS: 10/03/2022 SPEC #: [id number] RECD: 10/03/22 14:35 STATUS: JENNIFER DÍAZ #: [id number] EVELIN: 10/03/22 12:[address]: Macarena Driscoll DEPT: SURGICAL PATHOLOGY RECD BY: [place] Tissues: Urinary bladder, NOS Procedures: Surgery Specimen Level IV HEADER OPERATION: Cysto, ureteroscopy, ureteral stent insertion, bladder biopsy PRE-OP DIAGNOSIS: Right ureteral calculus TISSUE SUBMITTED: Bladder biopsy MICROSCOPIC DIAGNOSIS Urinary bladder, biopsy: Minimal chronic inflammation. AM:shan 10/07/2022 MICROSCOPIC DESCRIPTION Slides are reviewed. GROSS DESCRIPTION Received in fixative is one container labeled with the patient's name and designated bladder biopsy. The specimen consists of one irregular fragment of light vance soft tissue that measures 0.2 x 0.1 x 0.1 cm. The specimen is totally submitted in one cassette. / SJ:shan 10/06/2022 TC:3 CPT: 55697
[2022-10-03] MEDS: Cefazolin 2 GM in 0.9% Normal Saline 100 ML IV (12:39)
--- NOTE | 2022-10-03 14:54 | PHA.DC.MC ---
Pharmacy Service has performed discharge medication reconciliation and counseling for this patient. Patient initially asked for medications [facility] because she was concerned we do not have her insurance information. This [facility] informed her one of the prescriptions can not be transferred. Patient okay with filling at [facility], would like meds to beds. This [facility] called retail and requested meds to beds. 1. CEPHALEXIN 500MG PO Q12 X 3 DAYS 2. OXYCODONE/ACETAMINOPHEN 5/325MG 1T PO Q8H PRN PAIN 3. PHENAZOPYRIDINE 200MG PO TID PRN BLADDER SPASMS The patient's discharge medication list was reviewed for discrepancies and discrepancies were resolved. Home Medications atorvastatin 20 mg tablet 20 mg PO DAILY Check with primary doctor 12/19/21 biotin 1 mg capsule 1 mg PO DAILY Check with primary doctor 12/19/21 levothyroxine 100 mcg tablet 100 mcg PO DAILY Check with primary doctor 12/19/21 svrtpizogmld-Mv-tdkb-minerals 18 mg-0.4 mg tablet 1 tab PO DAILY Check with primary doctor 12/19/21 cephalexin 500 mg capsule 500 mg PO Q12 post-operative 3 days #6 CAPSULES 10/03/22 oxycodone-acetaminophen 5 mg-325 mg tablet (Percocet) 1 tab PO Q8H PRN pain 3 days #10 tabs 10/03/22 phenazopyridine 200 mg tablet (Pyridium) 200 mg PO TID PRN PRN Bladder Spasms 7 days #30 tabs 10/03/22 The patient was counseled on the following discharge medications and changes in medications for homegoing were reviewed. The Reason for Use, instructions for use, and potential side effects were reviewed for all new medications. The patient's questions regarding all of their medications were answered. The patient was able to verbally demonstrate an understanding of their discharge medications.
[2022-10-03] MEDS: Acetaminophen 325 MG Tablet 650 MG PO (16:07)
== END 2022-10-03 20:00 | disposition home or self-care (01) ==
LOC: ED 21:29 → MS3 10-03 02:04
PROVIDERS: Anesthesiology; Admitting Provider Urology; Emergency Provider Emergency Medicine; Visit Provider Urology
PROC: 0TJ98ZZ Inspection of Ureter, Via Natural or Artificial Opening Endoscopic (ICD-10-PCS; CPT 52352; principal; 2022-10-03 12:20)
DX: N13.2 Hydronephrosis with renal and ureteral calculous obstruction (principal); K21.9 Gastro-esophageal reflux disease without esophagitis; E78.00 Pure hypercholesterolemia, unspecified; E03.9 Hypothyroidism, unspecified; Z79.899 Other long term (current) drug therapy; Z79.890 Hormone replacement therapy
CPT/HCPCS: 52204; 52332; 00910; 76000; 80048; 81001; 84443; 84703; 85025; 88305; 96374; 96375; 96376; 99221; 99284; J7030; J7120; A4216; C2617; G0378; J2405

== ENCOUNTER 2022-10-30 08:04 | Day surgery (SDC) | payer OTHER, SELFPAY ==
[2022-10-30] MEDS: Lactated Ringers 1,000 ML 15 ML IV (08:34)
[2022-10-30 08:35] VITALS: BP 111/71; PULSE 80; RESP 18; TEMP 36.6; O2SAT 96; BMI 31.1
[2022-10-30 08:47] LABS: Internal QC Validated? YES +Cl - CLEAR BKGD; Pregnancy, Urine Negative Negative
--- NOTE | 2022-10-30 09:02 | DCINST_ITS ---
Discharge Instructions Diet Discharge Diet: No restrictions Activity Discharge Activity: Return to Normal Activity Dressing / Incision Call your doctor if you observe: Fever of 101 or Higher, Inability to urinate and Inability to have a bowel movement Follow Up Care Please Follow Up With: Macarena Driscoll MD When: call office for appt Test Results: Test results from this visit will be discussed in further detail at your follow- up appointment, if applicable. Discharge Plan Admission Attending Provider: Macarena Driscoll Primary Care Provider: Care Miley Brady Primary Discharge Orders/Prescriptions Prescriptions: New hydrocodone-acetaminophen [hydrocodone-acetaminophen] 5-325 mg tablet 1 tab PO Q6H PRN PRN (Reason: Pain) 7 Days Qty: 20 0RF Continued axenicijgzcp-Vl-axtw-minerals 18-0.4 mg Tablet 1 tab PO DAILY biotin 1 mg Capsule 1 mg PO DAILY atorvastatin 20 mg tablet 20 mg PO DAILY levothyroxine 100 mcg Tablet 100 mcg PO DAILY phenazopyridine [Pyridium] 200 mg tablet 200 mg PO TID PRN PRN (Reason: Bladder Spasms) 7 Days Qty: 30 3RF Referrals / Follow Up: Care PhysicianMiley Primary [Primary Care Provider] - Disposition Disposition (needs filled in before D/C Order can be placed): Home, Self Care
--- NOTE | 2022-10-30 09:05 | PCM.OPRPT ---
Report of Operation Date of Procedure: 10/30/22 Pre-Operative Diagnosis: right ureteral and renal stones Post-Operative Diagnosis: same Surgery/Procedure Performed:: cystoscopy with right ureteroscopy, holmium laser lithotripsy, stone basket extraction, right ureteral stent change Surgeon: Macarena Driscoll Type of Anesthesia: General Specimen's removed: Right ureteral stone fragments Description of Procedure: The patient is a 52-year-old female who previously underwent a right ureteral stent insertion for an obstructing ureteral stone. She also has a large lower pole right renal calculus. She presents for ureteroscopy with laser lithotripsy of both stones as well as right ureteral stent change. Informed consent was obtained. The patient was taken to the operating room and placed on the operating room table. Anesthesia monitored the head, neck, airway, IV access and vital signs throughout the case. Once anesthesia was appropriately administered, the patient was placed into dorsolithotomy position was prepped and draped in usual sterile fashion. The cystoscope was inserted through the urethra under direct visualization into the urinary bladder which was found to be within normal limits. 2 separate 0.035 glide wires were inserted alongside the indwelling ureteral stent which was then removed using grasping forceps. The flexible ureteroscope was inserted over one of the wires and the other wire was used as a safety wire. The flexible ureteroscope easily gained access to the ureter where the large ureteral calculus was identified. Using a 270 ?m laser fiber, the stone was broken into 3 pieces which were removed using a basket. At this time the ureteroscope was advanced further into the renal pelvis and in the lower pole a large calculus was identified consistent with the one seen on imaging. The laser fiber was used to break the stone into dust and multiple small pieces. Lasering proceeded for at least 20 minutes. At the conclusion of the lasering, the pieces were very small and the decision was made to place a ureteral stent and allow passage. At this time the cystoscope and the safety wire were used to place a 4.5 Bulgarian by 24 cm JJ stent with good positioning in the renal pelvis as well as the urinary bladder. The patient's bladder was then emptied and the cystoscope was removed. The patient was awakened and taken to the recovery room in good condition. There were no complications during this procedure. Grafts/Implants Used: 4.5 x 24 cm JJ stent Complications None Admit VTE Documentation VTE Present on Admission: Yes VTE Mechan Device Prophylaxis: SCD's VTE Pharm Prophylaxis ordered?: No Reason prophylaxis not ordered:: Treatment Not Indicated
[2022-10-30] MEDS: Cefazolin 2 GM in 0.9% Normal Saline 100 ML IV (09:07)
[2022-10-30 10:37] VITALS: BP 111/71; BP 135/82; PULSE 92; RESP 20; TEMP 36.6; O2SAT 97
[2022-10-30 10:45] VITALS: BP 111/71; BP 127/74; PULSE 101; RESP 18; O2SAT 100
[2022-10-30 11:00] VITALS: BP 111/71; BP 115/70; PULSE 100; RESP 18; O2SAT 95
[2022-10-30 11:29] VITALS: BP 111/71; BP 117/68; PULSE 95; RESP 18; TEMP 37; O2SAT 98
[2022-10-30] MEDS: HYDROcodone Bitartrate/Apap 5/325 Tablet PO (12:12)
[2022-10-30 12:46] VITALS: BP 111/71; BP 129/67; PULSE 96; RESP 16; TEMP 36.6; O2SAT 96
== END 2022-10-30 12:49 | disposition home or self-care (01) ==
LOC: SDC 08:07 → AC 08:08
PROVIDERS: Anesthesiology; Referring Provider Urology; Visit Provider Urology
PROC: (CPT 52332; principal; 2022-10-30 09:35)
DX: N20.2 Calculus of kidney with calculus of ureter (principal); E78.00 Pure hypercholesterolemia, unspecified; E03.9 Hypothyroidism, unspecified; Z79.899 Other long term (current) drug therapy
CPT/HCPCS: 52356; 52352; 76000; 81025; 82360; J7120; J2405

== ENCOUNTER → 2022-11-05 | Outpatient (CLI) | payer OTHER, SELFPAY ==
--- NOTE | 2022-11-05 15:06 | RAD_ITS ---
INDICATION: URETERAL JOAN/RENAL CALC EXAMINATION/TECHNIQUE: X-RAY - XR Abdomen 1 View: 2 image AP abdomen COMPARISON: None FINDINGS: BOWEL GAS PATTERN: Nonspecific non-obstructive bowel gas pattern. No focal stomach or bowel distention. Large colonic stool burden. FREE AIR: Not well assessed on a supine view. ORGANOMEGALY: Not seen. CALCIFICATIONS: Right renal lower pole 3 mm stone. Left renal midpole 5 mm stone. Double-J right ureteral stent with ends projecting over the expected location of an external pelvis or proximal ureter and the bladder. 4 mm stone projects over the distal ureteral stent at the ureteral vesicle junction. Multiple left pelvic phlebolith. LOWER CHEST: No acute pathology. BONES AND SOFT TISSUES: Right pelvic surgical clip. Bilateral ESSURE devices project over the lateral sacrum. No acute osseous finding.. RAD/Abdomen Single View IMPRESSION: Right double-J ureteral stent in place with concern for 4 mm stone at the right ureterovesical junction. Left pelvic phleboliths. Large colonic stool burden. Electronically Signed: Bright Da Silva MD at 11:56 EDT ,
== END | disposition home or self-care (01) ==
PROVIDERS: Referring Provider Urology; Visit Provider Urology
DX: N20.2 Calculus of kidney with calculus of ureter (principal)
CPT/HCPCS: 74018

== ENCOUNTER 2024-11-29 14:07 | Observation (INO) | payer OTHER, SELFPAY ==
[2024-11-29 14:10] VITALS: BMI 31.9
--- NOTE | 2024-11-29 14:10 | EKG12_ITS ---
Test Reason : preop Blood Pressure : */* mmHG Vent. Rate : 88 BPM Atrial Rate : 88 BPM P-R Int : 186 ms QRS Dur : 88 ms QT Int : 372 ms P-R-T Axes : 40 -5 43 degrees QTcB Int : 450 ms Normal sinus rhythm Low voltage QRS Borderline ECG No previous ECGs available Confirmed by Elfego Marcum ([id number]), writer editor AKOSUA WATSON ([id number]) on 12/01/2024 8:33:28 AM Referred By: Mike Ashley Confirmed By: Elfego Marcum
--- NOTE | 2024-11-29 14:14 | HP.PCM_ITS ---
HPI - General General Date of Admission: 11/29/24 Date of Service: 11/29/24 Chief Complaint: left kidney stone HPI Narrative ANNE MARIE ODOM, is a 54 F who presents to [facility] with a left kidney stone severe pain, plan to admit for pain control and surgery tomorrow at [facility] for left stent and left ESWL. [facility] Medical History Kidney stone Restless legs Arthritis Non-smoker Kidney stones Flank pain Ureteral calculus (~10/30/22) Anxiety Wears dentures Hypothyroid High cholesterol Back pain Gastric reflux Home Medications ?Medication ?Instructions ?Recorded ?Last Taken ?Type atorvastatin 20 mg tablet 20 mg PO DAILY Check with pr joseary 12/19/21 10/02/22 History doctor biotin 1 mg capsule 1 mg PO DAILY Check with [facility] 12/19/21 10/01/22 History doctor levothyroxine 100 mcg tablet 100 mcg PO DAILY Check wi 12/19/21 10/02/22 History primary doctor [id number]-Tp-jzun-minerals 18 1 tab PO DAILY Check with primary 12/19/21 09/26/22 History mg-0.4 mg tablet doctor hydrocodone-acetaminophen 5-325mg 1 tab PO Q6H PRN PRN Pain 7 days 10/30/22 Unknown Rx 5mg-325mg #20 TABLETS phenazopyridine 200 mg tablet 200 mg PO TID PRN PRN Bl adder 10/30/22 Unknown Rx (Pyridium) Spasms 7 days #30 tabs Allergy/AdvReac Type Severity Reaction Status Date / Time No Known Allergies Allergy Verified 10/30/22 08:34 Surgical History No pertinent past surgical history Social History Smoking Status: Never smoker Results Medical Records Data Attestation: I reviewed the patient's medical records Assessment & Plan Assessment/Plan (1) Ureteral calculus: PLAN: admit for kidneys stone, npo plan for surgery tomorrow for stent and ESWL, KUB today (2) Kidney stone: (3) Family history of colon cancer: (4) GERD (gastroesophageal reflux disease): (5) Diverticulosis:
[2024-11-29] MEDS: 0.9% Normal Saline (1000mL) 1,000 ML 50 ML IV (14:26)
[2024-11-29 15:09] VITALS: BP 127/73; PULSE 94; RESP 16; TEMP 36.9; O2SAT 96
--- NOTE | 2024-11-29 16:00 | RAD_ITS ---
PROCEDURE: ABDOMEN SINGLE VIEW 11/29/2024 REASON FOR EXAM: KIDNEY STONE TECHNIQUE: ABDOMEN SINGLE VIEW COMPARISON: 11/05/2022 FINDINGS: Nonobstructive bowel gas pattern. No discernible free air. Interval removal of the prior right nephroureteral stent. Redemonstrated 9 mm calcific density in the left midabdomen likely reflecting a left renal stone. Previously noted subcentimeter stone in the right hemipelvis is no longer visualized. No additional renal stones appreciated. Pelvic phleboliths. Bilateral pelvic tubal occluding ensure devices. Osseous structures are unremarkable. RAD/Abdomen Single View IMPRESSION: 1. Interval removal of the previous right nephroureteral stent. 2. Previously seen 4 mm stone at the right UVJ no longer visualized. 3. Unchanged 9 mm stone within the left kidney. Reading Location: [id number]
[2024-11-29 19:55] VITALS: BP 143/75; PULSE 95; RESP 15; TEMP 37; O2SAT 96
[2024-11-29 20:10] VITALS: RESP 15; O2SAT 96
--- OUTSIDE RECORDS SUMMARY | 2024-11-29 21:52 | XMS RPT_ITS | CCD ---
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 Phone Friend, Conrad Attending Unavailable Dot Rabago Referring Unavailable Dot Rabago Primary Care Unavailable Friend, Conrad Attending Unavailable FriendConrad Consulting Unavailable Gem Dot Referring Unavailable Arianna Rabagona Primary Care Unavailable Care Physician, No Primary Primary Care Unava ilable Macarena Driscoll Referring Unavailable Macarena Driscoll Attending Unavailable FriendConrad Attending Unavailable Arianna Rabagona Referring Unavailable Arianna Rabagona Primary Care Unavailable Care Physician, No Primary Primary Care Unava ilable Macarena Driscoll Referring Unavailable Macarena Driscoll Attending Unavailable NOT, DEFINED Primary Care Unavailable Macarena Driscoll Admitting Unavailable Macarena Driscoll Attending Unavailable ARUN ORELLANA Attending Unava ilable PHYSICIAN, NONE Primary Care Unavailable WENDI SHAY MD Attending Unavailable PHYSICIAN, NONE Primary Care Unavailable Unavailable Primary Care Provider Unavailabl e ARUN ANGELES CNP Primary Care Unavailable ARUN ANGELES CNP Consulting Unavailable ARUN ANGELES CNP Attending Unavailable ARUN ANGELES CNP Admitting Unavailable PROVIDER, UNKNOWN Consulting Unavailable PROVIDER, UNKNOWN Consulting Unavailable ARUN ANGELES CNP Admitting Unavailable ARUN ANGELES CNP Primary Care Unavailable ARUN ANGELES CNP Attending Unavailable ARUN ANGELES CNP Primary Care Unavailable ARUN ANGELES CNP Attending Unavailable ARUN ANGELES CNP Admitting Unavailable ARUN ANGELES CNP Primary Care Unavailable ARUN ANGELES CNP Consulting Unavailable ARUN ANGELES CNP Attending Unavailable ARUN ANGELES CNP Admitting Unavailable PROVIDER, UNKNOWN Consulting Unavailable PROVIDER, UNKNOWN Consulting Unavailable Medications Current Medications Medication Drug Class(es) Dates Sig (Normalized) Sig (Original) acetaminophen 325 mg / HYDROcodone bitartrate 5 mg oral tablet (2 sources) Opioid Agonist Start: 10-30-2022 take 1 tablet by mouth every six hours as needed Hydrocodone-Acetami nophen Active 1 TABLET PO EVERY 6 HOURS NEEDED 04 12October 30, 2022 atorvastatin 20 mg oral tablet (2 sources) HMG-CoA Reductase Inhibitor Start: 12-19-2021 take 20 mg by mouth once daily Atorvastatin Active 20 MG PO DAILY December 19, 2021 12:00am biotin 1 mg oral capsule (2 sources) Start: 12-19-2021 take 1 mg by mouth once daily Biotin Active 1 MG PO DAILY December 19, 2021 12:00am levothyroxine sodium 0.1 mg oral tablet (3 sources) l-Thyroxine Start: 12-19-2021 take 100 ug by mouth once daily Levothyroxine Active 100 MCG PO DAILY December 19, 2021 12:00am levothyroxine so dium (LEVOTHYROXINE ORAL) Take by mouth. 0 Active Jbphfmljfhvd-Eu-Bzbm-Mineral s (2 sources) Start: 12-19-2021 take 1 tablet by mouth once daily Aujgpcraswrf-Ib-Ucjk-Minerals Active 1 TABLET PO DAILY December 19, 2021 12:00am phenazopyridine hydrochlorid e 200 mg oral tablet (4 sources) Start: 10-03-2022 End: 10-30-2022 take 1 tablet by mouth three times daily as needed Phenazopyridine (Pyridium) 200 mg tablet Active 200 MG PO 3 TIMES DAILY NEEDED 14 12October 30, 2022 9:03am Completed/Discontinued Medications Medication Drug Class(es) Dates Sig (Normalized) Sig (Original) pantoprazole 40 mg delayed release oral tablet (6 sources) Proton Pump Inhibitor Start: 01-13-2022 End: 10-03-2022 Pantoprazole (Protonix) 40 mg tablet,delayed release (DR/EC) Discontinued 40 MG PO TWICE A DAY 60 January 13, 2022 5:15pm October 03, 2022 12:05am take two times a day for eight weeks then once a day. Start: 09-27-2021 End: 01-13-2022 take 1 tablet by mouth once daily Pantoprazole (Protonix) 40 mg tablet,delayed release (DR/EC) Discontinued 40 MG PO DAILY December 19, 2021 12:16pm January 13, 2022 5:15pm Problems Active Problems Problem Classification Problem Date Documented Date Episodic/Chronic Abdominal pain (4 sources) Flank pain; Translations: [Unspecified abdominal pain] 10-11-2022 Episodic Calculus of urinary tract (7 sources) Kidney stone; Translations: [Calculus of kidney] Onset: 10-16-2022 10-30-2022 Episodic Disorders of lipid metabolism (1 source) Hyperlipidemia, unspecified; Translations: [Hyperlipidemia, unspecified] Onset: 05-13-2023 Chronic Diverticulosis and diverticulitis (2 sources) Diverticular disease; Translations: [Diverticulosis of intestine, part unspecified, without perforation or abscess without bleeding] 01-06-2022 Chronic Esophageal disorders (2 sources) Gastroesophageal reflux disease; Translations: [Gastro-esophageal reflux disease without esophagitis] 01-06-2022 Chronic Immunizations and screening for infectious disease (2 sources) Encounter for screening for human papillomavirus (HPV); Translations: [Encounter for screening for human papillomavirus (HPV)] Onset: 05-06-2023 Episodic Nutritional deficiencies (1 source) Vitamin D deficiency, unspecified; Translations: [Vitamin D deficiency, unspecified] Onset: 05-13-2023 Chronic Other diseases of kidney and ureters (1 source) Hydronephrosis with renal and ureteral calculous obstruction; Translations: [Hydronephrosis with renal and ureteral calculous obstruction] Onset: 10-08-2022 Episodic Other lower respiratory disease (1 source) Pleuritic pain; Translations: [Pleurodynia] 11-15-2023 Episodic Residual codes; unclassified (2 sources) Family history of cancer of colon; Translations: [Family history of malignant neoplasm of digestive organs] 01-06-2022 Episodic Spondylosis; intervertebral disc disorders; other back problems (1 source) Acute thoracic back pain; Translations: [Pain in thoracic spine] 11-15-2023 Episodic Thyroid disorders (1 source) Hypothyroidism, unspecified; Translations: [Hypothyroidism, unspecified] Onset: 05-13-2023 Chronic Past or Other Problems Problem Classification Problem Date Documented Da te Episodic/Chronic Other screening for suspected conditions (not mental disorders or infectious disease) (6 sources) Encounter for screening for malignant neoplasm of colon; Translations: [Encounter for screening for malignant neoplasm of cervix] Onset: 12-27-2021 Episodic Sprains and strains (2 sources) Strain of unspecified muscle, fascia and tendon at shoulder and upper arm level, left arm, initial encounter; Translations: [Strain of unspecified muscle, fascia and tendon at shoulder and upper arm level, left arm, initial e] Onset: 11-19-2022 Episodic Results Test Name Value Interpretation Reference Range Facility VITAMIN D, 1,25 - DIHYDROXY [CCL]on 04-29-2024 Vit D,1,25 Dihydroxy 53.8 pg/mL Normal 19.9-79.3 [facility] Comment on above: Result Comment: [place] [address] Ricardo Otto III, M.D. [id number] Performed By: #### 2 45325 #### [facility],[address] [place] [address] 1,25-dihydroxyvitamin D3 [Ma ss/Vol]on 04-27-2024 VIT D1,25 DIHYDROXY 53.8 pg/mL Normal 19.9-79.3 [facility] Comment on above: Order Comment: Speci men Type: BLOOD SPECIMEN Ordering Facility: [facility] Address: [address] [place] [address] Performed By: #### 1 649-3 #### [facility] CLIA [id number] [address] [place] [address] [place] CBC + DIFFon 04-27-2024 Baso # 0.06 x10EE3/UL Normal 0.00 - 0.10 [facility] Comment on above: Performed By: #### 2 00046 #### [facility],[address] [place] [address]149 Basophils/100 WBC (Bld) 0.8 % Normal 0.0 - 2.0 [facility] Comment on above: Performed By: #### 2 46468 #### [facility],[address] [place], [place] [address] CBC + DIFF Normal [facility] Comment on above: Result Comment: CBC- COMPLETE BLOOD COUNT Performed By: #### 2 09921 #### [place] [address] EO # 0.17 x10EE3/UL Normal 0.00 - 0.50 [facility] Comment on above: Performed By: #### 2 86194 #### [place] [address] Eosinophils/100 WBC (Bld) 2.4 % Normal 0.0 - 7.0 [facility] Comment on above: Performed By: #### 2 23375 #### [place] [address] Erythrocyte distribution width (RBC) [Ratio] 12.8 % Normal 12.0 - 15.6 [facility] Comment on above: Performed By: #### 2 63944 #### [place] [address] Hematocrit (Bld) [Volume fraction] 40.5 % Normal 34.0 - 46.0 [facility] Comment on above: Performed By: #### 2 67005 #### [place] [address] Hemoglobin (Bld) [Mass/Vol] 13.7 g/dL Normal 12.0 - 16.0 [facility] Comment on above: Performed By: #### 2 69117 #### [place] [address] Lymph # 1.99 x10EE3/UL Normal 0.80 - 2.80 [facility] Comment on above: Performed By: #### 2 90860 #### [place] [address] Lymphocytes/100 WBC (Bld) 27.7 % Normal 20.0 - 45.0 [facility] Comment on above: Performed By: #### 2 65001 #### [address] [address] MANUAL DIFF N/A Normal [facility] Comment on above: Performed By: #### 2 69137 #### [facility],[address] [place] [address] MCH (RBC) [Entitic mass] 30 pg Normal 27 - 33 [facility] Comment on above: Performed By: #### 2 42340 #### [place] [address] MCHC 34 X10 3 Normal 32 - 36 [facility] Comment on above: Performed By: #### 2 79738 #### [place] [address] MCV (RBC) [Entitic vol] 89 fL Normal 80 - 99 [facility] Comment on above: Performed By: #### 2 36603 #### [place] [address] Citrus # 0.53 x10EE3/UL Normal 0.20 - 1.00 [facility] Comment on above: Performed By: #### 2 45965 #### [place] [address] MONOS % 7.4 % Normal 0.0 - 10.0 [facility] Comment on above: Performed By: #### 2 10413 #### [facility],[address] [place] [address] Morphology Néstor (Bld) [Interp] N/A Normal [facility] Comment on above: Performed By: #### 2 17384 #### [place] [address] Neut # 4.44 x10EE3/UL Normal 1.50 - 7.10 [facility] Comment on above: Performed By: #### 2 30767 #### [place] [address] Neutrophils/100 WBC (Bld) 61.8 % Normal 46.0 - 76.0 [facility] Comment on above: Performed By: #### 2 96874 #### [facility],[address] [place] [address]958 PLATELET 301 x10EE3/UL Normal 150 - 450 [facility] Comment on above: Performed By: #### 2 51711 #### [facility],[address] [place], [place] [address] Platelet mean volume (Bld) [Entitic vol] 9.2 fL Normal 6.6 - 10.5 [facility] Comment on above: Result Comment: AUTO MATED DIFFERENTIAL Performed By: #### 2 63200 #### [place] [id number] RBC 4.54 x 10EE6/UL Normal 4.10 - 5.30 [facility] Comment on above: Performed By: #### 2 80197 #### [facility],[address] [place], [place] [address] WBC 7.2 x 10EE3/UL Normal 4.5 - 10.8 [facility] Comment on above: Performed By: #### 2 68155 #### [facility],[address] [place], [place] [address] CMP with eGFRon 04-27-2024 AGE 54 years Normal [facility] Comment on above: Performed By: #### 2 35195 #### [facility],[address] [place], [place] [address] Albumin [Mass/Vol] 3.5 g/dL Normal 3.4 - 5.0 [facility] Comment on above: Performed By: #### 2 51404 #### [address] [address] Albumin/Globulin [Mass ratio] 1.0 {ratio} Normal 0.9 - 1.6 [facility] Comment on above: Performed By: #### 2 46188 #### [facility],[address] [place], [place] [address] ALK PHOS 67 U/L Normal 46 - 116 [facility] Comment on above: Performed By: #### 2 27625 #### [facility],[address] [place] [address]999 ALT [Catalytic activity/Vol] 21 U/L Normal 16 - 63 [facility] Comment on above: Performed By: #### 2 10089 #### [facility],[address] [place], [place] [address] Anion gap [Moles/Vol] 10 mmol/L Normal 10 - 20 [facility] Comment on above: Performed By: #### 2 26901 #### [facility],[address] [place], [place] [address] AST [Catalytic activity/Vol] 16 U/L Normal 13 - 39 [facility] Comment on above: Performed By: #### 2 50829 #### [facility],[address] [place] [address]98 B/C RATIO 14 ratio Normal 0 - 30 [facility] Comment on above: Performed By: #### 2 79915 #### [facility],[address] [place] [address]329 Bilirubin [Mass/Vol] 0.4 mg/dL Normal 0.2 - 1.0 [facility] Comment on above: Performed By: #### 2 88312 #### [facility],[address] [place] [address]448 Calcium [Mass/Vol] 8.9 mg/dL Normal 8.5 - 10.1 [facility] Comment on above: Performed By: #### 2 91390 #### [facility],[address] [place] [address]13 Chloride [Moles/Vol] 108 mmol/L High 98 - 107 [facility] Comment on above: Performed By: #### 2 86738 #### [facility],[address] [place] [address] CMP with eGFR Normal [facility] Comment on above: Result Comment: COMP REHENSIVE METABOLIC PANEL Performed By: #### 2 34076 #### [facility],[address] [place] [address] CO2 [Moles/Vol] 28.6 mmol/L Normal 21.0 - 32.0 [facility] Comment on above: Performed By: #### 2 00881 #### [facility],[address] [place] [address] Creatinine [Mass/Vol] 0.78 mg/dL Normal 0.55 - 1.02 [facility] Comment on above: Performed By: #### 2 83315 #### [facility],[address] [place] [address] GFR/1.73 sq M.predicted among non-blacks MDRD (S/P/Bld) [Vol rate/Area] mL/min/{1.73_m2} Normal 60 - 999 [facility] Comment on above: Performed By: #### 2 21699 #### [facility],[address] [place] [address] Result Comment: ACCO RDING TO THE NATIONAL KIDNEY DISEASE EDUCATION PROGRAM(NKDE), A NORMAL eGFR IS A VALUE GREATER THAN OR EQUAL TO 60 ML/MIN/1.73 SQ METERS. CHRONIC KIDNEY DISEASE: <60mL/MIN/1.73 SQ METERS KIDNEY FAILURE: <15mL/MIN/1.73 SQ METERS THIS TEST SHOULD ONLY BE USED FOR PATIENTS 18 YEARS OF AGE AND OLDER. Globulin (S) [Mass/Vol] 3.4 g/dL Normal 1.5 - 3.8 [facility] Comment on above: Performed By: #### 2 83806 #### [facility],[address] [place] [address] Glucose [Mass/Vol] 104 mg/dL Normal 74 - 106 [facility] Comment on above: Performed By: #### 2 49280 #### [facility],[address] [place] [address] Potassium [Moles/Vol] 4.1 mmol/L Normal 3.5 - 5.1 [facility] Comment on above: Performed By: #### 2 62904 #### [facility],[address] [place] [address] Protein [Mass/Vol] 6.9 g/dL Normal 6.4 - 8.2 [facility] Comment on above: Performed By: #### 2 21121 #### [facility],[address] [place] [address] Sodium [Moles/Vol] 142 mmol/L Normal 136 - 145 [facility] Comment on above: Performed By: #### 2 53268 #### [facility],[address] [place] [address] Urea nitrogen [Mass/Vol] 11 mg/dL Normal 7 - 18 [facility] Comment on above: Performed By: #### 2 61414 #### [facility],[address] [place] [address] LIPID PROFILEon 04-27-2024 Cholesterol [Mass/Vol] 189 mg/dL Normal 0 - 240 [facility] Comment on above: Performed By: #### 2 89065 #### [facility],[address] [place] [address] Cholesterol in HDL [Mass/Vol] 49 mg/dL Normal 40 - 60 [facility] Comment on above: Performed By: #### 2 44400 #### [facility],[address] [place] [address] Cholesterol in LDL [Mass/Vol] 121 mg/dL Normal 0 - 129 [facility] Comment on above: Performed By: #### 2 51493 #### [facility],[address] [place] [address] Cholesterol.total/Chol esterol in HDL [Mass ratio] 3.9 {ratio} Normal 0.0 - 5.0 [facility] Comment on above: Performed By: #### 2 50242 #### [facility],[address] [place] [address]220[address] Lipid 1996 panel Normal [facility] Comment on above: Result Comment: LIPI D PROFILE Performed By: #### 2 92023 #### [facility],[address] [place] [address]338 Triglyceride [Mass/Vol] 95 mg/dL Normal 0 - 150 [facility] Comment on above: Performed By: #### 2 11040 #### [facility],[address] [place] [address]7946 T4-FREE (FREE THYROXINE)on 06-28-2023 Free T4 [Mass/Vol] 0.87 ng/dL Normal 0.76 - 1.46 [facility] Comment on above: Result Comment: P otential of falsely elevated results when biotin concentrations are > 10 ng/mL. Performed By: #### 2 16456 #### [facility],[address] [place] [address]481 TSHon 04-27-2024 TSH Qn 1.20 m[IU]/L Normal 0.35 - 3.74 [facility] Comment on above: Performed By: #### 2 65741 #### [facility],[address] [place] [address]64 3D MAMM BILAT SCREENon 03-14 3D MAMM BILAT SCREEN [place] [address] Patient: ANNE MARIE ODOM Phone#: : 1970 Age: 53 Gender: F Pt. Type: Out Account: [id number] Location: [facility] Ordering: ARUN ANGELES Exam Date: 03/14/2024/14:56 Family Phys: Charge Code: [id number] Physician: Lassen Order #: [id number] Dose#: PROCEDURE: BILATERAL SCREENING BREAST TOMOSYNTHESIS MAMMOGRAM WITH CAD COMPARISON: [facility], 3D BILAT SCREEN, 11/11/2021, 13:00. [facility], 3D BILAT SCREEN, 11/20/2022, 14:13. INDICATIONS: SCREENING BREAST COMPOSITION: Scattered areas fibroglandular density. FINDINGS: DIAGNOSTIC CATEGORY 1--NEGATIVE NO CHANGE FROM COMPARISON ASSESSMENT. RIGHT BREAST: No significant suspicious finding. No significant change has occurred. LEFT BREAST: No significant suspicious finding. No significant change has occurred. RECOMMENDATIONS: ROUTINE MAMMOGRAM AND CLINICAL EVALUATION IN 12 MONTHS. PLEASE NOTE: A NORMAL MAMMOGRAM DOES NOT EXCLUDE THE POSSIBILITY OF BREAST CANCER. A CLINICALLY SUSPICIOUS PALPABLE LUMP SHOULD BE BIOPSIED. THIS FACILITY UTILIZES A REMINDER SYSTEM TO ENSURE THAT ALL PATIENTS RECEIVE REMINDER LETTERS FOR APPOINTMENTS. THIS INCLUDES REMINDERS FOR ROUTINE MAMMOGRAMS, DIAGNOSITC MAMMOGRAMS, OR OTHER BREAST IMAGING INTERVENTIONS WHEN APPROPRIATE. THIS PATIENT WILL BE PLACED IN THE APPROPRIATE REMINDER SYSTEM. Dictated by: Margie Mancera MD on 03/14/2024 at 18:21 Approved by: Margie Mancera MD on 03/14/2024 at 18:23 Normal [facility] Bacteria Ur Culton Bacteria identified Cx Nom (U) ORGANISM ID: 1 <10,000 CFU/ml Normal urogenital aroldo Normal [facility] Comment on above: Performed By: #### 6 30-4 #### [facility] CLIA [id number] [address] [place] [address] [place] CNOVon 11-15-2023 CNOV Office Visit ([facility] ) ANNE MARIE ODOM ([id number]) 1970 F Date Time Provider Department 11/15/23 11:00 AM IRAM URBANO [facility] During your visit today, we recorded the following information about you: Temperature Pulse Respiration Blood pressure 97.2 degrees 88/minute 16/minute 142/82 Weight 85.7 kg Iram Urbano PA-C 11/15/2023 11:23 AM Signed This note was created using [employer]. Subjective Anne Marie Odom is a 53 year old female. HPI Presents with right mid back pain over the past 3 days. She states that hurts to take a deep breath. She denies any pain in her abdomen. No urinary frequency, urgency, hematuria. She states she has had several kidney stones and was concerned that is what was going on. She is on her menstrual cycle so unsure if blood in urine or from menses. No fever. No vomiting. Patient states pain worsens with of breath. She has not had a cough or recent URI symptoms. No injury to her back. 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 Denies history of PE or DVT. No recent trips. No recent surgeries. No leg pain or swelling. She is not a smoker. She is not on any exogenous hormones. Review of Systems Constitutional: Negative. HENT: Negative. Respiratory: Negative. Cardiovascular: Negative. Gastrointestinal: Negative. Genitourinary: Positive for flank pain and vaginal bleeding. Negative for frequency and pelvic pain. Musculoskeletal: Positive for back pain. Hematological: Negative. Psychiatric/Behavioral: Negative. All other systems reviewed and are negative. History reviewed. No pertinent past medical history. Current Outpatient Medications Medication Sig Dispense Refill levothyroxine sodium (LEVOTHYROXINE ORAL) Take by mouth. No current facility-administered medications for this visit. PAST SURGICAL HISTORY Procedure Laterality Date LIG/TRNSXJ FLP TUBE ABDL/VAG APPR UNI/BI SALPINGOSTOMY No family history on file. Social History Tobacco Use Smoking status: Never Smokeless tobacco: Never Objective BP 142/82 Pulse 88 Temp 36.2 ?C (97.2 ?F) (Tympanic) Resp 16 Wt 85.7 kg (188 lb 15 oz) SpO2 98% Physical Exam Vitals reviewed. Constitutional: Appearance: Normal appearance. Comments: Patient appears in moderate pain here HENT: Head: Normocephalic and atraumatic. Cardiovascular: Rate and Rhythm: Normal rate and regular rhythm. Heart sounds: Normal heart sounds. Pulmonary: Effort: Pulmonary effort is normal. Breath sounds: Normal breath sounds. Comments: Back pain not reproducible on ROM or palpation. No rash noted Skin: General: Skin is warm and dry. Neurological: Mental Status: She is alert. Assessment and Plan ASSESSMENT/PLAN: 1. Acute right-sided thoracic back pain - ICD9: 724.1, ICD10: M54.6 (primary diagnosis) Patient appears in moderate pain here, worse with a deep breath. I cannot reduce the pain on palpation or with range of motion. Patient does have blood in urine however on menses, she has history of several kidney stones before and is concerned for that as well. DDx also include PE or musculoskeletal pain. I do not have any imaging available today. Discussed with patient I feel she needs higher level of care to work this up, she will go to [facility] ED to be seen. ER passport sent. - UA DIP, URINE (POC) - URINE CULTURE 2. Pleuritic pain - ICD9: 786.52, ICD10: R07.81 Iram Urbano PA-C Allergies As of Date: 11/15/2023 (No Known Allergies) Date Reviewed: 11/15/2023 Reviewed by: Justina Daniel LPN - Fully Assessed Reason for Visit: Back Pain [12] Cmt: X 1 week Primary Visit Diagnosis:Acute right-sided thoracic back pain [M54.6] Other Visit Diagnosis:Pleuritic pain [R07.81] Order(s):UA DIP, URINE (POC) [[id number]] Order #: [id number]. #:[id number] -LAB URINE CULTURE [SQURCUL] Order #: [id number]. #:[id number] Prescriptions as of 11/15/2023 - levothyroxine sodium (LEVOTHYROXINE ORAL) Take by mouth. Problem List As Of Date: 11/15/2023 (None) Encounter Status:Closed by IRAM URBANO on 11/15/23 Normal [facility] UA DIP, URINE (POC)on 2023 BILIRUBIN UA (POCT) Negative Negative [facility] CLARITY UA (POCT) Clear [facility] COLOR UA (POCT) Yellow [facility] GLUCOSE UA (POCT) Negative Negative mg/dL [facility] Hemoglobin Ql (U) Small Abnormal Negative [facility] Interpretation and review of laboratory results Abnormal [facility] KETONE UA (POCT) Negative Negative mg/dL [facility] LEUKOCYTES UA (POCT) Negative Negative [facility] NITRITE UA (POCT) Negative Negative [facility] PH UA (POCT) 6.0 4.5 - 8.0 [facility] Protein Ql (U) Negative Negative mg/dL [facility] SPECIFIC GRAVITY UA (POCT) <=1.005 Abnormal 1.005 - 1.030 [facility] UROBILINOGEN UA (POCT) 0.2 Sue l E.U./dL [facility] Location:[address], [place], [place], [address] [place] [address] POINT OF CARE [facility] VITAMIN D, 1,25 - DIHYDROXY [CCL]on 05-19-2023 Vit D,1,25 Dihydroxy 60.8 pg/mL Normal 19.9-79.3 [facility] Comment on above: Result Comment: [facility] [address] [place] [address] Ricardo Otto III, M.D. [id number] Performed By: #### 2 10796 #### [facility],[address] [place] [address] Lens Cleaner Cytology Reporton 2022 Lens Cleaner Cytology Report . Pathology Reports Accession: Collected Date/Time: Received Date/Time: Pathologist: [id number] 05/06/2023 11:15 EST 05/06/2023 18:00 EST Lens Cleaner Cytology Report SPECIMEN: Specimen Description: Liquid Prep w/ HPV Specimen: Cervical Screening or Diagnostic: Screening RELEVANT HISTORY: LMP: not given [id number] SPECIMEN ADEQUACY: SATISFACTORY FOR EVALUATION Endocervical/Transformation al zone component absent/insufficient INTERPRETATION/RESULTS: NEGATIVE FOR INTRAEPITHELIAL LESION OR MALIGNANCY HIGH RISK HPV TESTING: High Risk HPV Typing: Negative HPV Types 16, 18, 31, 33, 35, 39, 45, 51, 52, 56, 58, 59, 66 and 68 DNA were undetectable or below the pre-set threshold. The wilbur High-Risk HPV DNA Test is not intended for use as a screening device for Pap normal women under age 30 and is not intended to substitute for regular Pap screening. The wilbur High-Risk HPV DNA Test is designed to augment existing methods for the detection of cervical disease and should be used in conjunction with clinical information derived from other diagnostic and screening tests, physical examinations and full medical history in accordance with appropriate patient management procedures. NOTE: A negative result does not preclude the presence of HPV infection because results depend on adequate specimen collection, absence of inhibitors and sufficient DNA to be detected. COMMENT: This Pap Test was successfully processed and evaluated with the assistance of the [employer]in[employer] Test Imaging System. Electronically Signed by Pathology report verified by [facility] Screened by: [place] Electronically signed by Lupe RANDOLPH (ASCP) Sign-Out Date: 05/14/2023 14:39 Performing Lab: [facility], [address] [place] [address] Pathology Dept Disclaimer The Pap test is a screening test for cervical cancer. As evidenced by published data, it is subject to both inherent false negative and false positive results. Your patient's results should be interpreted in context with pertinent clinical history including gynecological examination. Normal [facility] [place] HPVon 05-14-2023 HPV Interp X Normal See Interp HPVN [facility] Comment on above: Order Comment: Order placed by AP_HPV_ORDER rule from [id number] Registration error. Not a viro error Result Comment: High Risk HPV Typing: NEGATIVE HPV types 16, 18, 31, 33, 35, 39, 45, 51, 52, 56, 58, 59, 66 and 68 DNA were undetectable or below the pre-set threshold. The wilbur High-Risk HPV DNA Test is not intended for use as a screening device for Pap normal women under age 30 and is not intended to substitute for regular Pap screening. The iwlbur High-Risk HPV DNA Test is designed to augment existing methods for the detection of cervical disease and should be used in conjunction with clinical information derived from other diagnostic and screening tests, physical examinations and full medical history in accordance with appropriate patient management procedures. NOTE: A negative result does not preclude the presence of HPV infection because results depend on adequate specimen collection, absence of inhibitors and sufficient DNA to be detected. See Interp HPVN Performed By: #### H PV #### [address] [address] HPV Source X Normal [facility] [place] Comment on above: Order Comment: Order placed by AP_HPV_ORDER rule from [id number] Registration error. Not a viro error Performed By: #### H PV #### [address] [address] HPV Interp Normal See Interp HPVN [facility] [place] Comment on above: Order Comment: Order placed by AP_HPV_ORDER rule from [id number] Result Comment: High Risk HPV Typing: NEGATIVE HPV types 16, 18, 31, 33, 35, 39, 45, 51, 52, 56, 58, 59, 66 and 68 DNA were undetectable or below the pre-set threshold. The wilbur High-Risk HPV DNA Test is not intended for use as a screening device for Pap normal women under age 30 and is not intended to substitute for regular Pap screening. The wilbur High-Risk HPV DNA Test is designed to augment existing methods for the detection of cervical disease and should be used in conjunction with clinical information derived from other diagnostic and screening tests, physical examinations and full medical history in accordance with appropriate patient management procedures. NOTE: A negative result does not preclude the presence of HPV infection because results depend on adequate specimen collection, absence of inhibitors and sufficient DNA to be detected. See Interp HPVN Performed By: #### H PV #### [place] [address] HPV Source Cervix Normal [facility] [place] Comment on above: Order Comment: Order placed by AP_HPV_ORDER rule from [id number] Performed By: #### H PV #### [address] [address] 1,25-dihydroxyvitamin D3 [Ma ss/Vol]on 05-13-2023 VIT D1,25 DIHYDROXY 60.8 pg/mL Normal 19.9-79.3 [facility] Comment on above: Order Comment: Speci men Type: BLOOD SPECIMEN Ordering Facility: [facility] Address: [address] [place] [address] Performed By: #### 1 649-3 #### [facility] CLIA [id number] [address] [place] [address] [place] CBC + DIFFon 05-13-2023 Baso # 0.10 x10EE3/UL Normal 0.00 - 0.10 [facility] Comment on above: Performed By: #### 2 26016 #### [facility],[address] [place] [address] Basophils/100 WBC (Bld) 1.1 % Normal 0.0 - 2.0 [facility] Comment on above: Performed By: #### 2 35831 #### [facility],[address] [place] [address] CBC + DIFF Normal [facility] Comment on above: Result Comment: CBC- COMPLETE BLOOD COUNT Performed By: #### 2 05521 #### [facility],[address] [place] [address] EO # 0.10 x10EE3/UL Normal 0.00 - 0.50 [facility] Comment on above: Performed By: #### 2 55268 #### [facility],[address] [place] [address] Eosinophils/100 WBC (Bld) 1.9 % Normal 0.0 - 7.0 [facility] Comment on above: Performed By: #### 2 83341 #### [facility],[address] [place], [place] [address] Erythrocyte distribution width (RBC) [Ratio] 13.3 % Normal 12.0 - 15.6 [facility] Comment on above: Performed By: #### 2 12563 #### [facility],[address] [place] [address] Hematocrit (Bld) [Volume fraction] 41.1 % Normal 34.0 - 46.0 [facility] Comment on above: Performed By: #### 2 56311 #### [facility],[address] [place] [address] Hemoglobin (Bld) [Mass/Vol] 13.7 g/dL Normal 12.0 - 16.0 [facility] Comment on above: Performed By: #### 2 65479 #### [facility],[address] [place] [address] Lymph # 1.90 x10EE3/UL Normal 0.80 - 2.80 [facility] Comment on above: Performed By: #### 2 64385 #### [facility],[address] [place] [address] Lymphocytes/100 WBC (Bld) 27.4 % Normal 20.0 - 45.0 [facility] Comment on above: Performed By: #### 2 87292 #### [facility],[address] [place] [address] MANUAL DIFF N/A Normal [facility] Comment on above: Performed By: #### 2 79434 #### [facility],[address] [place] [address] MCH (RBC) [Entitic mass] 30 pg Normal 27 - 33 [facility] Comment on above: Performed By: #### 2 50292 #### [facility],[address] [place] [address] MCHC 33 X10 3 Normal 32 - 36 [facility] Comment on above: Performed By: #### 2 92799 #### [facility],[address] [place] [address] MCV (RBC) [Entitic vol] 90 fL Normal 80 - 99 [facility] Comment on above: Performed By: #### 2 84974 #### [facility],[address] [place] [address] Citrus # 0.50 x10EE3/UL Normal 0.20 - 1.00 [facility] Comment on above: Performed By: #### 2 77724 #### [facility],[address] [place] [address] MONOS % 6.6 % Normal 0.0 - 10.0 [facility] Comment on above: Performed By: #### 2 90291 #### [facility],[address] [place] [address] Morphology Néstor (Bld) [Interp] N/A Normal [facility] Comment on above: Result Comment: {CD] Performed By: #### 2 91981 #### [facility],[address] [place] [address] Neut # 4.50 x10EE3/UL Normal 1.50 - 7.10 [facility] Comment on above: Performed By: #### 2 97996 #### [place] [address] Neutrophils/100 WBC (Bld) 63.0 % Normal 46.0 - 76.0 [facility] Comment on above: Performed By: #### 2 53626 #### [place] [address] PLATELET 276 x10EE3/UL Normal 150 - 450 [facility] Comment on above: Performed By: #### 2 56105 #### [place] [address] Platelet mean volume (Bld) [Entitic vol] 9.8 fL Normal 6.6 - 10.5 [facility] Comment on above: Result Comment: AUTO MATED DIFFERENTIAL Performed By: #### 2 96839 #### [place] [address] RBC 4.56 x 10EE6/UL Normal 4.10 - 5.30 [facility] Comment on above: Performed By: #### 2 28056 #### [facility],[address] [place] [address] WBC 7.1 x 10EE3/UL Normal 4.5 - 10.8 [facility] Comment on above: Performed By: #### 2 65681 #### [address],[place] [address] CMP with eGFRon 05-13-2023 AGE 53 years Normal [facility] Comment on above: Performed By: #### 2 98463 #### [facility],[address] [place] [address] Albumin [Mass/Vol] 3.1 g/dL Low 3.4 - 5.0 [facility] Comment on above: Performed By: #### 2 60004 #### [facility],[address] [place], [place] [address] Albumin/Globulin [Mass ratio] 0.9 {ratio} Normal 0.9 - 1.6 [facility] Comment on above: Performed By: #### 2 41955 #### [facility],[address] [place] [address] ALK PHOS 64 U/L Normal 46 - 116 [facility] Comment on above: Performed By: #### 2 07790 #### [facility],[address] [place] [address] ALT [Catalytic activity/Vol] 25 U/L Normal 14 - 59 [facility] Comment on above: Performed By: #### 2 44365 #### [facility],[address] [place] [address] Anion gap [Moles/Vol] 12 mmol/L Normal 10 - 20 [facility] Comment on above: Performed By: #### 2 50714 #### [facility],[address] [place] [address] AST [Catalytic activity/Vol] 19 U/L Normal 13 - 39 [facility] Comment on above: Performed By: #### 2 95727 #### [facility],[address] [place] [address] B/C RATIO 13 ratio Normal 0 - 30 [facility] Comment on above: Performed By: #### 2 86009 #### [facility],[address] [place] [address] Bilirubin [Mass/Vol] 0.5 mg/dL Normal 0.2 - 1.0 [facility] Comment on above: Performed By: #### 2 16996 #### [facility],[address] [place] [address] Calcium [Mass/Vol] 8.8 mg/dL Normal 8.5 - 10.1 [facility] Comment on above: Performed By: #### 2 61248 #### [facility],[address] [place] [address] Chloride [Moles/Vol] 104 mmol/L Normal 98 - 107 [facility] Comment on above: Performed By: #### 2 67068 #### [facility],[address] [place], [place] [address] CMP with eGFR Normal [facility] Comment on above: Result Comment: COMP REHENSIVE METABOLIC PANEL Performed By: #### 2 57973 #### [facility],[address] [place] [address] CO2 [Moles/Vol] 25.0 mmol/L Normal 21.0 - 32.0 [facility] Comment on above: Performed By: #### 2 40267 #### [facility],[address] [place] [address] Creatinine [Mass/Vol] 0.72 mg/dL Normal 0.55 - 1.02 [facility] Comment on above: Performed By: #### 2 92517 #### [facility],[address] [place] [address] GFR/1.73 sq M.predicted among non-blacks MDRD (S/P/Bld) [Vol rate/Area] mL/min/{1.73_m2} Normal 60 - 999 [facility] Comment on above: Performed By: #### 2 52588 #### [facility],[address] [place] [address] Result Comment: ACCO RDING TO THE NATIONAL KIDNEY DISEASE EDUCATION PROGRAM(NKDE), A NORMAL eGFR IS A VALUE GREATER THAN OR EQUAL TO 60 ML/MIN/1.73 SQ METERS. CHRONIC KIDNEY DISEASE: <60mL/MIN/1.73 SQ METERS KIDNEY FAILURE: <15mL/MIN/1.73 SQ METERS THIS TEST SHOULD ONLY BE USED FOR PATIENTS 18 YEARS OF AGE AND OLDER. Globulin (S) [Mass/Vol] 3.6 g/dL Normal 1.5 - 3.8 [facility] Comment on above: Performed By: #### 2 95616 #### [facility],[address] [place] [address] Glucose [Mass/Vol] 89 mg/dL Normal 74 - 106 [facility] Comment on above: Performed By: #### 2 32906 #### [facility],[address] [place] [address] Potassium [Moles/Vol] 4.0 mmol/L Normal 3.5 - 5.1 [facility] Comment on above: Performed By: #### 2 28486 #### [facility],[address] [place] [address] Protein [Mass/Vol] 6.7 g/dL Normal 6.4 - 8.2 [facility] Comment on above: Performed By: #### 2 26683 #### [facility],[address] [place] [address] Sodium [Moles/Vol] 137 mmol/L Normal 136 - 145 [facility] Comment on above: Performed By: #### 2 54728 #### [facility],[address] [place] [address] Urea nitrogen [Mass/Vol] 9 mg/dL Normal 7 - 18 [facility] Comment on above: Performed By: #### 2 83992 #### [facility],[address] [place] [address] LIPID PROFILEon 05-13-2023 Cholesterol [Mass/Vol] 177 mg/dL Normal 0 - 240 [facility] Comment on above: Performed By: #### 2 87255 #### [facility],[address] [place] [address] Cholesterol in HDL [Mass/Vol] 53 mg/dL Normal 40 - 60 [facility] Comment on above: Performed By: #### 2 21296 #### [facility],[address] [place] [address] Cholesterol in LDL [Mass/Vol] 96 mg/dL Normal 0 - 129 [facility] Comment on above: Performed By: #### 2 13870 #### [facility],[address] [place] [address] Cholesterol.total/Chol esterol in HDL [Mass ratio] 3.3 {ratio} Normal 0.0 - 5.0 [facility] Comment on above: Performed By: #### 2 92638 #### [facility],[address] [place] [address] Lipid 1996 panel Normal [facility] Comment on above: Result Comment: LIPI D PROFILE Performed By: #### 2 33717 #### [facility],[address] [place] [address] Triglyceride [Mass/Vol] 140 mg/dL Normal 0 - 150 [facility] Comment on above: Performed By: #### 2 33825 #### [facility],[address] [place] [address] T4-FREE (FREE THYROXINE)on 07-14-2022 Free T4 [Mass/Vol] 0.97 ng/dL Normal 0.76 - 1.46 [facility] Comment on above: Result Comment: P otential of falsely elevated results when biotin concentrations are > 10 ng/mL. Performed By: #### 2 87481 #### [facility],[address] [place] [address] TSHon 05-13-2023 TSH Qn 2.39 m[IU]/L Normal 0.35 - 3.74 [facility] Comment on above: Performed By: #### 2 79591 #### [facility],[address] [facility] [address] MRI HUMERUS W/O CONTRAST LEF Ton 11-20-2022 MRI HUMERUS W/O CONTRAST LEFT ORIGINAL EXAMINATION: MRI OF THE LEFT HUMERUS WITHOUT CONTRAST11/19/2022 11:50 am TECHNIQUE: Multiplanar multisequence MRI of the left humerus was performed without the administration of intravenous contrast. COMPARISON: None HISTORY: ORDERING SYSTEM PROVIDED HISTORY: Reason for Exam: STRAIN. region of interest, triceps. Pain status post lifting patient. FINDINGS: OSSEOUS STRUCTURES: No fracture or dislocation is evident.Bone marrow signal intensity is within normal limits. No visible marrow replacing osseous lesions. MUSCLES, TENDONS, AND LIGAMENTS: Included tendons appear grossly intact, however the rotator cuff tendons are suboptimally evaluated due to field of view. The origin of the long head biceps tendon is incompletely visible within the field of view. Also, the insertions of the biceps and brachialis tendons are not included within the caudal margin of the field of view. No significant muscle atrophy or edema. Ligaments are not well assessed on this examination. JOINTS: Suboptimal evaluation for internal derangement of the glenohumeral joint and elbow secondary to large field of view images. Suspect labral degeneration. Low-grade cartilage thinning of the glenohumeral joint is also suspected. No significant arthrosis of the elbow. No significant glenohumeral or elbow effusion. SOFT TISSUES: Visualized associate soft tissues are grossly unremarkable. IMPRESSION: 1. No significant muscle edema to indicate strain or muscular injury within the field of view. 2. Additional findings as above. Interpreted by: Fernando Henson DO Preliminary Report By: Fernando Henson DO Electronically signed By Fernando Henson DO Dictated Date: 11/20/2022 9:32:22 AM Prelim Date: 11/20/2022 9:41:08 AM Sign Date: 11/20/2022 9:41:08 AM Ordering Provider: WENDI Berry [facility] [place] Abdomen Single Viewon 2022 Abdomen Single View [facility] Imaging Services [address] [place] [address] Abdomen Single View MR#: [id number] Acct: [id number] Name: ANNE MARIE ODOM Rep #: [id number] : 1970 F 52 From: Bright Da Silva MD PCP: Care Physician,No Primary Status: REG CLI Study: Abdomen Single View Date of Exam: 11/05/22 Exam# [id number] Ordering Dr: Macarena Driscoll MD INDICATION: URETERAL JOAN/RENAL CALC EXAMINATION/TECHNIQUE: X-RAY - XR Abdomen 1 View: 2 image AP abdomen COMPARISON: None FINDINGS: BOWEL GAS PATTERN: Nonspecific non-obstructive bowel gas pattern. No focal stomach or bowel distention. Large colonic stool burden. FREE AIR: Not well assessed on a supine view. ORGANOMEGALY: Not seen. CALCIFICATIONS: Right renal lower pole 3 mm stone. Left renal midpole 5 mm stone. Double-J right ureteral stent with ends projecting over the expected location of an external pelvis or proximal ureter and the bladder. 4 mm stone projects over the distal ureteral stent at the ureteral vesicle junction. Multiple left pelvic phlebolith. LOWER CHEST: No acute pathology. BONES AND SOFT TISSUES: Right pelvic surgical clip. Bilateral ESSURE devices project over the lateral sacrum. No acute osseous finding.. RAD/Abdomen Single View IMPRESSION: Right double-J ureteral stent in place with concern for 4 mm stone at the right ureterovesical junction. Left pelvic phleboliths. Large colonic stool burden. Electronically Signed: Bright Da Silva MD at 11:56 EDT , CC: Dr. Macarena Driscoll MD; No Primary Care Physician Application Support Manager: Signed Normal [facility] Calculi, Urinary w / Photoon 11-05-2022 SOURCE Normal [facility] Comment on above: Order Comment: Comme nts: Right Ureteral Calculi, collected in [place] Result Comment: TEST RESULT LIMITS Stone Analysis Source Right Ureter Color Brown Size 4x3 mm Multiple pieces received. Dimensions of the largest piece reported. Weight 29 mg Composition Percentage (Represents the % composition) Calcium Oxalate Monohydrate 100 % Comment Calculus received wet. Wet calculi must be dried before analysis, which delays reporting of results. Leaving calculi wet (such as water, saline, blood, urine) may lead to changes in composition. Photo Photograph will follow under a separate cover Comment: Physician questions regarding Calculi Analysis contact [facility] at: [phone]. Please note: Calculi report will follow via computer, mail or cpc coder delivery. Disclaimer: This test was developed and its performance characteristics determined by [facility]. It has not been cleared or approved by the Food and Drug Administration. TESTING PERFORMED AT [facility]. ORIGINAL REPORT ON FILE IN LAB CONTAINS ADDITIONAL TEST SITE INFORMATION. Performed By: #### L 3650.0100 #### [facility] [address] [facility] [place], [address] Color of specimen determinat ionOrdered By: Dr. Driscoll on 10-30-2022 Color (Unsp spec) Not Reportable [facility] Discharge Instructionon 10-16 Discharge Instruction [facility] Medical Records Department [address] [place] [address] Instructions for Home/Discharge Instructions 10/30/22 0902 MR#: [id number] Acct: [id number] Name: ANNE MARIE ODOM Rep #: [id number] : 1970 52 From: Macarena Driscoll MD PCP: Care Physician,No Primary Status:REG [facility] Discharge Instructions Diet Discharge Diet: No restrictions Activity Discharge Activity: Return to Normal Activity Dressing / Incision Call your doctor if you observe: Fever of 101 or Higher, Inability to urinate and Inability to have a bowel movement Follow Up Care Please Follow Up With: Macarena Driscoll MD When: call office for appt Test Results: Test results from this visit will be discussed in further detail at your follow-up appointment, if applicable. Discharge Plan Admission Attending Provider: Macarena Driscoll Primary Care Provider: Miley Rowland Primary Discharge Orders/Prescriptions Prescriptions: New hydrocodone-acetaminophen [hydrocodone-acetaminophen] 5-325 mg tablet 1 tab PO Q6H PRN PRN (Reason: Pain) 7 Days Qty: 20 0RF Continued yflulixwvjca-Lz-wndx-minera ls 18-0.4 mg Tablet 1 tab PO DAILY biotin 1 mg Capsule 1 mg PO DAILY atorvastatin 20 mg tablet 20 mg PO DAILY levothyroxine 100 mcg Tablet 100 mcg PO DAILY phenazopyridine [Pyridium] 200 mg tablet 200 mg PO TID PRN PRN (Reason: Bladder Spasms) 7 Days Qty: 30 3RF Referrals / Follow Up: Care Physician,No Primary [Primary Care Provider] - Disposition Disposition (needs filled in before D/C Order can be placed): Home, Self Care 10/30/22 1037 Macarena Driscoll MD CC: No Primary Care Physician Signed Normal [facility] Laboratory - Chemistry and C hemistry - challengeOrdered By: Dr. Beasley on 10-30-2022 HCG ( test) Ql (U) Negative [facility] Comment on above: Very dilute urine sp ecimens, as indicated by a low specificgravity, may not contain business banking representative levels of hCG. If is still suspected, a first morning urinespecimen should be collected 48 hours later and tested. Measurement of weight of sto neOrdered By: Dr. Driscoll on 10-30-2022 Weight (Stone) Not Reportable [facility] Operative Reporton 3 Operative Report [facility] Medical Records Department [address] [place] [address] Operative Report 10/30/22 0905 MR#: [id number] Acct: [id number] Name: ANNE MARIE ODOM Rep #: [id number] : 1970 52 From: Macarena Driscoll MD PCP: Care Physician,No Primary Status:[facility] Location: [place] [address] Report of Operation Date of Procedure: 10/30/22 Pre-Operative Diagnosis: right ureteral and renal stones Post-Operative Diagnosis: same Surgery/Procedure Performed:: cystoscopy with right ureteroscopy, holmium laser lithotripsy, stone basket extraction, right ureteral stent change Surgeon: Macarena Driscoll Type of Anesthesia: General Specimen's removed: Right ureteral stone fragments Description of Procedure: The patient is a 52-year-old female who previously underwent a right ureteral stent insertion for an obstructing ureteral stone. She also has a large lower pole right renal calculus. She presents for ureteroscopy with laser lithotripsy of both stones as well as right ureteral stent change. Informed consent was obtained. The patient was taken to the operating room and placed on the operating room table. Anesthesia monitored the head, neck, airway, IV access and vital signs throughout the case. Once anesthesia was appropriately administered, the patient was placed into dorsolithotomy position was prepped and draped in usual sterile fashion. The cystoscope was inserted through the urethra under direct visualization into the urinary bladder which was found to be within normal limits. 2 separate 0.035 glide wires were inserted alongside the indwelling ureteral stent which was then removed using grasping forceps. The flexible ureteroscope was inserted over one of the wires and the other wire was used as a safety wire. The flexible ureteroscope easily gained access to the ureter where the large ureteral calculus was identified. Using a 270 ???m laser fiber, the stone was broken into 3 pieces which were removed using a basket. At this time the ureteroscope was advanced further into the renal pelvis and in the lower pole a large calculus was identified consistent with the one seen on imaging. The laser fiber was used to break the stone into dust and multiple small pieces. Lasering proceeded for at least 20 minutes. At the conclusion of the lasering, the pieces were very small and the decision was made to place a ureteral stent and allow passage. At this time the cystoscope and the safety wire were used to place a 4.5 [place] Verdean by 24 cm JJ stent with good positioning in the renal pelvis as well as the urinary bladder. The patient's bladder was then emptied and the cystoscope was removed. The patient was awakened and taken to the recovery room in good condition. There were no complications during this procedure. Grafts/Implants Used: 4.5 x 24 cm JJ stent Complications None Admit VTE Documentation VTE Present on Admission: Yes VTE Mechan Device Prophylaxis: SCD's VTE Pharm Prophylaxis ordered?: No Reason prophylaxis not ordered:: Treatment Not Indicated 10/30/22 1057 Cosigner Signature (if applicable): CC: Dr. Macarena Driscoll MD; No Primary Care Physician Signed [facility] Origin of StoneOrdered By: Vero Driscoll on 10-30-2022 Origin Nom (Stone) See comment [facility] Comment on above: TEST RESULT LIMITSSt one Analysis Source Right Ureter Color Brown Size 4x3 mm Multiple pieces received. Dimensions of the largest piece reported. Weight 29 mg Composition Percentage (Represents the % composition) Calcium Oxalate Monohydrate 100 %Comment Calculus received wet. Wet calculi must be dried beforeanalysis, which delays reporting of results. Leaving calculiwet (such as water, saline, blood, urine) may lead tochanges in composition.PhotoPhotograph will follow under a separate coverComment: Physician questions regarding Calculi Analysis [facility]Sol[facility] at: [phone].Please note: Calculi report will follow via computer, mail or courierdelivery.Disclaimer: This test was developed and its performance characteristicsdetermined by [employer]. It has not been cleared or approvedby the Food and Drug Administration. TESTING PERFORMED AT [facility]. ORIGINAL REPORT ON FILE IN LAB CONTAINS ADDITIONAL TEST SITE INFORMATION. ,Urineon 10-30-2022 Beta HCG ( test) Ql (U) Negative Normal [facility] Comment on above: Result Comment: Very dilute urine specimens, as indicated by a low specific gravity, may not contain business banking representative levels of hCG. If is still suspected, a first morning urine specimen should be collected 48 hours later and tested. Performed By: #### L 400.7600 #### [facility] [address] [place], [address] Size of stoneOrdered By: Dr. Driscoll on 10-30-2022 Size (Stone) [Entitic vol] Not Reportable [facility] Discharge Instructionon 09-15 Discharge Instruction [facility] Medical Records Department [address] [place] [address] Instructions for Home/Discharge Instructions 10/03/22 1127 MR#: [id number] Acct: [id number] Name: ANNE MARIE ODOM Rep #: [id number] : 1970 52 From: Macarena Driscoll MD PCP: Status:ADM MARY Discharge Instructions Diet Discharge Diet: No restrictions Activity Discharge Activity: Return to Normal Activity May resume sexual activity in: No Restrictions Dressing / Incision Call your doctor if you observe: Fever of 101 or Higher, Inability to urinate and Inability to have a bowel movement Follow Up Care Please Follow Up With: Macarena Driscoll MD When: Call office for appointment Test Results: Test results from this visit will be discussed in further detail at your follow-up appointment, if applicable. Discharge Plan Admission Admit Date/Time: 10/02/22 23:49 Attending Provider: Macarena Driscoll Discharge Orders/Prescriptions Prescriptions: New oxycodone-acetaminophen [Percocet] 5-325 mg tablet 1 tab PO Q8H PRN (Reason: pain) 3 Days Qty: 10 0RF cephalexin [cephalexin] 500 mg capsule 500 mg PO Q12 3 Days Qty: 6 0RF phenazopyridine [Pyridium] 200 mg tablet 200 mg PO TID PRN PRN (Reason: Bladder Spasms) 7 Days Qty: 30 0RF Continued qsetruljcdue-Gu-jagz-minera ls 18-0.4 mg Tablet 1 tab PO DAILY biotin 1 mg Capsule 1 mg PO DAILY atorvastatin 20 mg tablet 20 mg PO DAILY levothyroxine 100 mcg Tablet 100 mcg PO DAILY Referrals / Follow Up: NOT,DEFINED [Non-Staff] - Disposition Disposition (needs filled in before D/C Order can be placed): Home, Self Care 10/03/22 1312 Macarena Driscoll MD CC: Signed Normal [facility] Operative Reporton Operative Report [facility] Medical Records Department [address] [place] [address] Operative Report 10/03/22 1130 MR#: [id number] Acct: [id number] Name: ANNE MARIE ODOM Rep #: [id number] : 1970 52 From: Macarena Driscoll MD PCP: Status:ADM MARY Location: [place] [address] Report of Operation Date of Procedure: 10/03/22 Pre-Operative Diagnosis: Right ureteral calculus Post-Operative Diagnosis: Same, bladder lesion small Surgery/Procedure Performed:: Cystoscopy, right ureteroscopy, right ureteral stent insertion, bladder biopsy with fulguration Surgeon: Macarena Driscoll Type of Anesthesia: General Specimen's removed: Bladder biopsy Description of Procedure: The patient is a 52-year-old female with an obstructing right ureteral calculus. She presents for surgical intervention and informed consent has been obtained. The patient was taken to the operating room and placed on the operating room table. Anesthesia monitored the head, neck, airway, IV access and vital signs throughout the case. Once anesthesia was appropriately administered, the patient was placed into dorsolithotomy position and was prepped and draped in usual sterile fashion. The cystoscope was inserted through the urethra under direct visualization into the urinary bladder. The bladder mucosa was visualized in its entirety and a 3 to 4 mm lesion was identified on the right posterior bladder wall. The remainder of the exam was within normal limits. The right ureteral orifice was identified and intubated with an 0.035 Glidewire. The semirigid ureteroscope was then carefully advanced into the ureter. The ureter was very narrow and there was the beginning of a false passage. The decision was made to halt the procedure. The cystoscope was then used for placement of a 6 [place] Ver[place]an 24 cm JJ stent with good positioning in the renal pelvis as well as the urinary bladder. At this time a biopsy excision was performed on the small bladder lesion of the posterior bladder wall. The area was fulgurated for hemostatic control and tissue treatment. The patient's bladder was then emptied, and the patient was awakened and taken to the recovery room in good condition. There were no complications during this procedure. Grafts/Implants Used: 6 [place] x 24 cm JJ stent Complications None Admit VTE Documentation VTE Present on Admission: Yes VTE Mechan Device Prophylaxis: SCD's VTE Pharm Prophylaxis ordered?: No Reason prophylaxis not ordered:: Treatment Not Indicated 10/03/22 1311 Cosigner Signature (if applicable): CC: Dr. Macarena Driscoll MD Signed Normal [facility] ,Serum,hCG Quali.on 10-03-2022 HCG, SERUM QUAL Negative Normal [facility] Comment on above: Order Comment: if fe male and of childbearing age (8-55 years old) Performed By: #### L 700.6800 #### [facility] [address] [place], [place], [address] Surgery Specimen Level [place] 10-03-2022 Surgery Specimen Level IV Patient Age/Sex Location Account Attending Physician ANNE MARIE ODOM 52/F MS3 [id number] Dr. Macarena Driscoll MD Specimen: [id number] Received: 10/03/22 Status: JENNIFER Tinsley Num: [id number] Spec Type: BLADDER BX Subm Dr: Dr. Macarena Driscoll MD HEADER OPERATION: Cysto, ureteroscopy, ureteral stent insertion, bladder biopsy PRE-OP DIAGNOSIS: Right ureteral calculus TISSUE SUBMITTED: Bladder biopsy MICROSCOPIC DIAGNOSIS Urinary bladder, biopsy: Minimal chronic inflammation. AM:shan 10/07/2022 MICROSCOPIC DESCRIPTION Slides are reviewed. GROSS DESCRIPTION Received in fixative is one container labeled with the patient's name and designated bladder biopsy. The specimen consists of one irregular fragment of light vance soft tissue that measures 0.2 x 0.1 x 0.1 cm. The specimen is totally submitted in one cassette. / SJ:shan 10/06/2022 TC:3 CPT: 74568 Patient Age/Sex Location Account Attending Physician ANNE MARIE ODOM 52/F MS3 [id number] Dr. Macarena Driscoll MD Signed (signature on file) Dr. Andrea Gardner, 10/07/22 1312 Normal [facility] Comment on above: Performed By: #### P SSII #### [facility] [address] [facility] [place], [address] Thyroid Stim Hormone (TSH)on 10-03-2022 TSH 2.12 uIU/mL Normal 0.358-3.74 [facility] Comment on above: Order Comment: Comme nts: use ed labs Performed By: #### P SSII #### [facility] [place], [address] Urinalysis, Completeon 10-03 RBC 0-5 SEEN Normal 0-5 [facility] Comment on above: Order Comment: CLEAN CATCH Performed By: #### P SSII #### [facility] [address] [facility] [place], [address] WBC 0-5 SEEN Normal 0-5 [facility] Comment on above: Order Comment: CLEAN CATCH Performed By: #### P SSII #### [facility] [address] [facility] [place], [address] BACTERIA 0 SEEN Normal None Seen [facility] Comment on above: Order Comment: CLEAN CATCH Performed By: #### P SSII #### [facility] [place], [address] EPI,SQUAMOUS 0 SEEN Normal 5-10 [facility] Comment on above: Order Comment: CLEAN CATCH Performed By: #### P SSII #### [facility] [address] [place], [address] Mucus Ql (Urine sed) 0 SEEN Normal [facility] Comment on above: Order Comment: CLEAN CATCH Performed By: #### P SSII #### [facility] [address] [place], [address] Absolute lymphocyte countOrd ered By: Dr. Meza on 10-02-2022 Lymphocytes Auto (Unsp spec) [#/Vol] 0.88 10*3/uL 0.83-4.51 [facility] Basic Metabolic Profile (BMP )on 10-02-2022 BUN/CRE 15.4 RATIO Normal 10-20 [facility] Comment on above: Performed By: #### L 500.2500, L100.0100 #### [facility] [address] [place], [address] CA,Total 8.7 mg/dL Normal 8.5-10.1 [facility] Comment on above: Performed By: #### L 500.2500, L100.0100 #### [facility] [address] [place], [address] Chloride [Moles/Vol] 109 mmol/L High 98-107 [facility] Comment on above: Performed By: #### L 500.2500, L100.0100 #### [facility] [address] [place], [address] CO2 [Moles/Vol] 23.0 mmol/L Normal 21.0-32.0 [facility] Comment on above: Performed By: #### L 500.2500, L100.0100 #### [facility] [address] [place], [address] Creatinine [Mass/Vol] 0.78 mg/dL Normal 0.55-1.02 [facility] Comment on above: Result Comment: The validity of the calculated GFR GFRAA in patients over 70 years has not been determined. Clinical correlation is essential. Performed By: #### L 500.2500, L100.0100 #### [facility] [address] [place], [address] ECRCL 75.92 ml/min Normal [facility] Comment on above: Performed By: #### L 500.2500, L100.0100 #### [facility] [address] [place], [address] EST GFR - AA 99 mL/min Normal >60 [facility] Comment on above: Result Comment: Afri can Danish GFR Calc Performed By: #### L 500.2500, L100.0100 #### [facility] [address] [place], [address] GAP 7 Normal 5-15 [facility] Comment on above: Performed By: #### L 500.2500, L100.0100 #### [facility] [address] [place], [address] GFR/1.73 sq M.predicted among non-blacks MDRD (S/P/Bld) [Vol rate/Area] 82 mL/min/{1.73_m2} Normal >60 [facility] Comment on above: Result Comment: Non- GFR Calc Performed By: #### L 500.2500, L100.0100 #### [facility] [address] [place], [address] Glucose [Mass/Vol] 121 mg/dL High 74-106 [facility] Comment on above: Result Comment: Fast ing Glucose result from 100 to 125 mg/dL suggests IMPAIRED HOMEOSTASIS per A.D.A. criteria. Performed By: #### L 500.2500, L100.0100 #### [facility] [address] [place], [address] Potassium [Moles/Vol] 3.9 mmol/L Normal 3.5-5.1 [facility] Comment on above: Performed By: #### L 500.2500, L100.0100 #### [facility] [address] [place], [address] Sodium [Moles/Vol] 139 mmol/L Normal 136-145 [facility] Comment on above: Performed By: #### L 500.2500, L100.0100 #### [facility] [address] [place], [address] Urea nitrogen [Mass/Vol] 12 mg/dL Normal 7-18 [facility] Comment on above: Performed By: #### L 500.2500, L100.0100 #### [facility] [address] [place], [address] Basophil percentageOrdered B y: Dr. Meza on 10-02-2022 Basophil percentage 0-5 SEEN /hpf 0-5 [facility] Basophils/100 WBC (Bld) 0.4 % 0-1 [facility] Chloride [Moles/Vol] 109 mmol/L 98-107 [facility] Eosinophils/100 WBC (Bld) 0.0 % 0-5 [facility] Glucose [Mass/Vol] 121 mg/dL 74-106 [facility] Comment on above: Fasting Glucose resu lt from 100 to 125 mg/dL suggests IMPAIRED HOMEOSTASIS per A.D.A. criteria. Neutrophils (Bld) [#/Vol] 14.8 10*3/uL 2.0-7.7 [facility] Neutrophils/100 WBC (Bld) 90.8 % 47-70 [facility] Potassium [Moles/Vol] 3.9 mmol/L 3.5-5.1 [facility] Sodium [Moles/Vol] 139 mmol/L 136-145 [facility] WBC (Bld) [#/Vol] 16.3 10*3/uL 4.4-11.0 [facility] Beta hCG serum qualOrdered B y: ED PROVIDER on 10-02-2022 Beta HCG ( test) Ql Negative [facility] Bilirubin Test strip Ql (U)O rdered By: Dr. Meza on 10-02-2022 Bilirubin Ql (U) Negative Negative [facility] Blood erythrocytes count (nu mber/volume)Ordered By: Dr. Meza on 10-02-2022 RBC (Bld) [#/Vol] 4.72 10*6/uL 4.2-5.4 [facility] Blood hemoglobin measurement (mass/volume)Ordered By: Dr. Meza on 10-02-2022 Hemoglobin (Bld) [Mass/Vol] 14.0 g/dL 12.0-15.0 [facility] Blood lymphocytes/100 leukoc ytesOrdered By: Dr. Meza on 10-02-2022 Lymphocytes/100 WBC (Bld) 5.4 % 19-41 [facility] Blood monocytes/100 leukocyt esOrdered By: Dr. Meza on 10-02-2022 Monocytes/100 WBC (Bld) 2.7 % 0-10 [facility] Blood platelet mean volumeOr dered By: Dr. Meza on 10-02-2022 Platelet mean volume (Bld) [Entitic vol] 10.9 fL 6.2-12.0 [facility] CBC W/Diff, Automatedon 09-15 Absolute Lymph 0.88 X10 3/uL Normal 0.83-4.51 [facility] Comment on above: Performed By: #### L 500.2500, L100.0100 #### [facility] [address] [facility] [place], [address] Absolute Neut 14.8 X10 3/uL High 2.0-7.7 [facility] Comment on above: Performed By: #### L 500.2500, L100.0100 #### [facility] [address] [facility] [place], [address] Basophils/100 WBC (Bld) 0.4 % Normal 0-1 [facility] Comment on above: Performed By: #### L 500.2500, L100.0100 #### [facility] [address] [place], [address] Eosinophils/100 WBC (Bld) 0.0 % Normal 0-5 [facility] Comment on above: Performed By: #### L 500.2500, L100.0100 #### [facility] [address] [place], [address] Erythrocyte distribution width (RBC) [Ratio] 12.2 % Normal 11.6-14.6 [facility] Comment on above: Performed By: #### L 500.2500, L100.0100 #### [facility] [address] [place], [address] Hematocrit (Bld) [Volume fraction] 43.1 % Normal 37-47 [facility] Comment on above: Performed By: #### L 500.2500, L100.0100 #### [facility] [address] [place], [address] Hemoglobin (Bld) [Mass/Vol] 14.0 g/dL Normal 12.0-15.0 [facility] Comment on above: Performed By: #### L 500.2500, L100.0100 #### [facility] [address] [place], [address] IG% 0.700 Normal 0.0-0.9 [facility] Comment on above: Result Comment: IG% - Immature Granulocytes (promyelocytes, myelocytes and metamyelocytes) > 1% indicates that a LEFT SHIFT is Present. Performed By: #### L 500.2500, L100.0100 #### [facility] [address] [place], [address] Lymphocytes/100 WBC (Bld) 5.4 % Low 19-41 [facility] Comment on above: Performed By: #### L 500.2500, L100.0100 #### [facility] [address] [place], [address] MCH (RBC) [Entitic mass] 29.7 pg Normal 27.0-32.0 [facility] Comment on above: Performed By: #### L 500.2500, L100.0100 #### [facility] [address] [place], [address] MCHC (RBC) [Mass/Vol] 32.5 g/dL Normal 32-36 [facility] Comment on above: Performed By: #### L 500.2500, L100.0100 #### [facility] [address] [place], [address] MCV (RBC) [Entitic vol] 91.3 fL Normal 81-99 [facility] Comment on above: Performed By: #### L 500.2500, L100.0100 #### [facility] [address] [place], [address] Monocytes/100 WBC (Bld) 2.7 % Normal 0-10 [facility] Comment on above: Performed By: #### L 500.2500, L100.0100 #### [facility] [address] [place], [address] Neutrophils/100 WBC (Bld) 90.8 % High 47-70 [facility] Comment on above: Performed By: #### L 500.2500, L100.0100 #### [facility] [address] [place], [address] Nucleated RBC (Bld) [#/Vol] 0 10*3/uL Normal 0-5 [facility] Comment on above: Performed By: #### L 500.2500, L100.0100 #### [facility] [address] [place], [address] Platelet mean volume (Bld) [Entitic vol] 10.9 fL Normal 6.2-12.0 [facility] Comment on above: Performed By: #### L 500.2500, L100.0100 #### [facility] [address] [place], [address] Platelets (Bld) [#/Vol] 310 10*3/uL Normal 150-450 [facility] Comment on above: Performed By: #### L 500.2500, L100.0100 #### [facility] [address], [address] RBC (Bld) [#/Vol] 4.72 10*6/uL Normal 4.2-5.4 [facility] Comment on above: Performed By: #### L 500.2500, L100.0100 #### [facility] [address] [place], [address] RDW SD 40.7 fl Normal 35.1-43.9 [facility] Comment on above: Performed By: #### L 500.2500, L100.0100 #### [facility] [address] [place], [address] WBC (Bld) [#/Vol] 16.3 10*3/uL High 4.4-11.0 [facility] Comment on above: Performed By: #### L 500.2500, L100.0100 #### [facility] [address] [place], [address] Determination of erythrocyte mean corpuscular volume (MCV)Ordered By: Dr. Meza on 10-02-2022 MCV (RBC) [Entitic vol] 91.3 fL 81-99 [facility] Emergency Department Summary on 10-02-2022 Emergency Department Summary [facility] Medical Records Department [address] [place] [address] Emergency Department Summary 10/02/22 MR#: [id number] Acct: [id number] Name: ANNE MARIE ODOM Rep #: [id number] : 1970 52 From: Prashanth Meza DO PCP: NOT,DEFINED Status:REG ER Location: ED HPI History of Present Illness Chief Complaint: Flank Pain PFSH PFSH Medical History (Updated 01/06/22 @ 16:[address] Martines Friend, DO) Anxiety Back pain Gastric reflux High cholesterol Hypothyroid Wears dentures Home Medications atorvastatin 20 mg tablet 20 mg PO DAILY 12/19/21 [History Last Taken Unknown] biotin 1 mg capsule 1 mg PO DAILY 12/19/21 [History Last Taken Unknown] levothyroxine 100 mcg tablet 100 mcg PO DAILY 12/19/21 [History Last Taken Unknown] magnesium oxide 400 mg (241.3 mg magnesium) tablet 1 tab PO DAILY 12/19/21 [History Last Taken Unknown] uazbyzhrjsuv-Cm-wlsl-minera ls 18 mg-0.4 mg tablet 1 tab PO DAILY 12/19/21 [History Last Taken Unknown] pantoprazole 40 mg tablet,delayed release (Protonix) 40 mg PO BID #60 tabs 01/13/22 [Rx Last Taken Unknown] Allergy/AdvReac Type Severity Reaction Status Date / Time No Known Allergies Allergy Verified 10/02/22 20:33 Surgical History (Updated 12/19/21 @ 12:23 by Anjelica Odom) No pertinent past surgical history Social History Smoking Status: Never smoker EXAM Physical Exam Const Vital Signs: 10/02/22 20:31 10/02/22 20:33 Temperature 97.6 F L Temperature Source Temporal Pulse Rate 102 H Respiratory Rate 18 Respiratory Effort Normal Non-Labored Respiratory Pattern Normal Blood Pressure 131/81 H Blood Pressure Mean 97 Pulse Ox 100 Oxygen Delivery Method Room Air [facility] MDM Narrative Medical decision making narrative: HISTORY OF PRESENT ILLNESS: 52-year-old female here with flank pain. Patient states she was diagnosed with a 6 mm right-sided kidney stone earlier today. States since then she had increasing pain, nausea. REVIEW OF SYSTEMS: Pertinent positives: Flank pain, nausea and vomiting Pertinent negatives: syncope, CP, SOB. PHYSICAL EXAM: Nursing triage notes reviewed, Vital signs reviewed Constitutional: please see mdm HENT: MMM Eyes: Pupils equal round and reactive to light, Extraocular muscles intact Neck: No stridor, no JVD, full neck ROM Lungs: Clear to auscultation, No wheezing or rales. No increased work of breathing, no conversational dyspnea, no accessory muscle use, no nasal flaring. No respiratory distress noted Heart: Regular rate and rhythm, No murmurs, No rubs and No gallops, 2+ distal pulses (radial, femoral, posterior tibial) in all extremities Abdomen: Soft, there is no tenderness, rigidity, rebound or guarding, no obvious peritoneal signs, no palpable pulsatile abdominal masses, no auscultated abdominal bruit : Right CVA tenderness Extremities: No edema Neuro: No focal neurological deficits, cranial nerves II through XII intact, 5/5 strength in all extremities. Intact sensation to light touch in all extremities, 2+ reflexes bilateral patella tendons. Normal gait. No ataxia. Skin: No rash or lesions noted MEDICAL DECISION MAKING: Chief Complaint: Flank pain External records reviewed: No recent advanced imaging of the abdomen or pelvis noted in our chart. Per hospital records patient had a 6 mm distal ureteral stone with hydronephrosis diagnosed on outside CT scan MDM Narrative: Patient was initially hemodynamically stable, afebrile she is nontoxic-appearing however she is in acute distress from flank pain. She was recently diagnosed with a 6 mm kidney stone. I do not have these records available so I repeated the majority of the lab and imaging work-up including a CT scan. Labs without evidence of SAMUEL. There was evidence of systemic inflammation but no significant anemia. There is no acute kidney injury. Patient's urine did not show signs of infection. She was given IV narcotics, Toradol Zofran and fluids. She was reassessed she is still significant pain still nauseous. Requiring further IV narcotic pain medicine. Given intractable pain, relatively large stone, hydronephrosis and signs of systemic inflammation I recommended the patient be admitted to the hospital to undergo further pain control and to get urologic evaluation. I discussed the case with Dr. Driscoll who agreed to admit the patient. Factors affecting care: GERD Social determinants of health: None History obtained from others: The patient's family Shared decision making: I will have a discussion with the patient and or visitors regarding risk/benefits of further testing or admission. They will be made aware of of the risk/benefits inherent in this decision they will be given the opportunity to voice understanding. Consults: Urology (more content not included)... Normal [facility] Hematocrit Auto (Bld) [Volum e fraction]Ordered By: Dr. Meza on 10-02-2022 Hematocrit (Bld) [Volume fraction] 43.1 % 37-47 [facility] Ketones Test strip Ql (U)Ord ered By: Dr. Meza on 10-02-2022 Ketones Ql (U) 150 mg/dl Negative [facility] Comment on above: CRITICAL VALUE VERIF IED. CALLED TO SUSHMA BELTRAN RN [id number] Elfego Mayo.RESULTS READ BACK BY SAME . CRITICAL VALUE *H Laboratory - Chemistry and C hemistry - challengeOrdered By: Dr. Meza on 10-02-2022 CO2 [Moles/Vol] 23.0 mmol/L 21.0-32.0 [facility] Urea nitrogen/Creatinine [Mass ratio] 15.4 mg/mg 10-20 [facility] Laboratory - Hematology and Cell countsOrdered By: Dr. Meza on 10-02-2022 Erythrocyte distribution width (RBC) [Entitic vol] 40.7 fL 35.1-43.9 [facility] Erythrocyte distribution width (RBC) [Ratio] 12.2 % 11.6-14.6 [facility] Immature granulocytes/100 WBC (Bld) 0.700 % 0.0-0.9 [facility] Comment on above: IG% - Immature Granu locytes (promyelocytes, myelocytes and metamyelocytes) > 1% indicates that a LEFT SHIFT is Present. MCH (RBC) [Entitic mass] 29.7 pg 27.0-32.0 [facility] Nucleated RBC/100 WBC (Bld) [Ratio] 0 % 0-5 [facility] MCHC Auto (RBC) [Mass/Vol]Or dered By: Dr. Meza on 10-02-2022 MCHC (RBC) [Mass/Vol] 32.5 g/dL 32-36 [facility] Mucus LM Ql (Urine sed)Order ed By: Dr. Meza on 10-02-2022 Mucus Ql (Urine sed) 0 SEEN /hpf [facility] Nitrite Test strip Ql (U)Ord ered By: Dr. Meza on 10-02-2022 Nitrite Ql (U) Negative Negative [facility] No Panel InformationOrdered By: Dr. Meza on 10-02-2022 Estimated Creatinine Clearance Calc 75.92 ml/min [facility] Estimated GFR (MDRD) Amer 99 mL/min >60 [facility] Comment on above: GFR Calc Estimated GFR (MDRD) Non-Af Amer 82 mL/min >60 [facility] Comment on above: Non- GFR Calc No Panel InformationOrdered By: Dr. Smiley on 10-02-2022 Thyroid Stimulating Hormone (TSH) 2.12 uIU/mL 0.358-3.74 [facility] Platelets bldOrdered By: Dr. Meza on 10-02-2022 Platelets (Bld) [#/Vol] 310 10*3/uL 150-450 [facility] Protein Test strip Ql (U)Ord ered By: Dr. Meza on 10-02-2022 Protein Ql (U) 15 mg/dl Negative [facility] Serum or plasma calcium jeff urement (mass/volume)Ordered By: Dr. Meza on 10-02-2022 Calcium [Mass/Vol] 8.7 mg/dL 8.5-10.1 [facility] Serum or plasma creatinine m easurement (mass/volume)Ordered By: Dr. Meza on 10-02-2022 Creatinine [Mass/Vol] 0.78 mg/dL 0.55-1.02 [facility] Comment on above: The validity of the calculated GFR & GFRAA in patients over 70 years has not been determined. Clinical correlation is essential. Serum or plasma urea nitroge n measurement (mass/volume)Ordered By: Dr. Meza on 10-02-2022 Urea nitrogen [Mass/Vol] 12 mg/dL 12-02 [facility] Squamous epithelial cells de tection in urine sediment by light microscopyOrdered By: Dr. Meza on 10-02-2022 Epithelial cells.squamous LM Ql (Urine sed) 0 SEEN /hpf 09-24 [facility] Thin prep Papanicolaou smear with manual screeningOrdered By: Dr. Meza on 10-02-2022 Thin prep Papanicolaou smear with manual screening 09-29 [facility] Urinalysis, Completeon 10-02 EPI,SQUAMOUS 0-5 SEEN Normal 09-24 [facility] Comment on above: Order Comment: CLEAN CATCH Performed By: #### L [id number] #### [facility] [place], [address] RBC 0-5 SEEN Normal 0-5 [facility] Comment on above: Order Comment: CLEAN CATCH Performed By: #### L [id number] #### [facility] [address] [place], [address] BACTERIA 0 SEEN Normal None Seen [facility] Comment on above: Order Comment: CLEAN CATCH Performed By: #### L [id number] #### [facility] [address] [place], [address] Mucus Ql (Urine sed) 0 SEEN Normal [facility] Comment on above: Order Comment: CLEAN CATCH Performed By: #### L [id number] #### [facility] [address] [place], [address] WBC 0 SEEN Normal 0-5 [facility] Comment on above: Order Comment: CLEAN CATCH Performed By: #### L [id number] #### [facility] [address] [place], [address] Urine blood detectionOrdered By: Dr. Meza on 10-02-2022 RBC Ql (U) 10 /ul Negative [facility] RBC Ql (U) 0-5 SEEN /hpf 0-5 [facility] Urine clarityOrdered By: Dr. Meza on 10-02-2022 Clarity (U) Sl. Cloudy Clear [facility] Urine color determinationOrd ered By: Dr. Meza on 10-02-2022 Color (U) Yellow Yellow [facility] Urine glucose detectionOrder ed By: Dr. Meza on 10-02-2022 Glucose Ql (U) 50 mg/dl Normal [facility] Urine leukocyte esterase det ection by dipstickOrdered By: Dr. Meza on 10-02-2022 Leukocyte esterase Test strip Ql (U) Negative Negative [facility] Urine pHOrdered By: Dr. Mariaelena rodriguez on 10-02-2022 pH (U) 6.5 [pH] 5.0 - 8.0 [facility] Urine sediment bacteria coun t by microscopy (number/high power field)Ordered By: Dr. Meza on 10-02-2022 Bacteria LM.HPF (Urine sed) [#/Area] 0 /[HPF] None Seen [facility] Urine specific gravity measu rementOrdered By: Dr. Meza on 10-02-2022 Specific gravity (U) [Rel density] 1.015 1.002-1.03 0 [facility] Urobilinogen Auto test strip Ql (U)Ordered By: Dr. Meza on 10-02-2022 Urobilinogen Ql (U) Normal mg/dl Normal [facility] Gastroenterology Visit Repor ton 01-06-2022 Gastroenterology Visit Report [facility] Gastroenterology [address] [place] [address] OFFICE VISIT Date of Service: 01/06/22 MR#: [id number] Acct: [id number] Name: ANNE MARIE ODOM Rep #: [id number] : 1970 Provider: Conrad Lyman DO Age/Sex: 51/F Location: [facility] Status: Signed Intake Vital Signs 12/23/21 06:18 Height 5 ft 6 in Intake Visit Reasons: 2 WK F/U POST SCOPE Allergies No Known Allergies Allergy (Verified 12/23/21 06:16) [facility] Medical History (Updated 01/06/22 @ 16:[address] Conrad Lyman DO) Anxiety Back pain Gastric reflux High cholesterol Hypothyroid Wears dentures Surgical History (Updated 12/19/21 @ 12:23 by Anjelica Damien) No pertinent past surgical history Social History Smoking Status: Never smoker HPI HPI Details: ANNE MARIE ODOM, is a 51 F who presents to the office today for Follow up. Anne Marie established with this clinic 09.27.21 as a self-referral for screening colonoscopy. She has never had a colonoscopy performed. Onset age 50, she began eating a lot of Taquis around that time. She noticed an increase of symptoms and stopped eating them. Also notes issue with spicy food and red sauces. Symptoms well managed with omeprazole 20mg BID when she remembers to take it. Symptoms occur about once a week with very infrequent severe reflux. She is not a cigarette smoker. Family history includes mother age 77 with colon cancer s/p surgery. EGD and colonoscopy 12.23.21. EGD found Irregular Zline 37cm; small hiatal hernia; gastritis. H.Pylori negative. Colonoscopy found diverticulosis of RS, sigmoid, hepatic flexure and ascending colons; two 1-2 mm tubular adenoma polyps from rectum and splenic flexure. Plan LV 09.27.21: Family history colon cancer ??? first colonoscopy; mother diagnosed with colon cancer at 77 GERD ??? start protonix 40mg QD. Reports that she is doing well overall since LV. She had COVID shortly after her procedure. Since starting protonix she is not having any reflux unless she is experiencing stress trigger. ROS Const Constitutional: No fatigue, malaise, night sweats, weight change, sleep problems, abnormal sleep pattern or change in appetite ENT ENT: No difficulty swallowing, hoarseness or sore throat Cardio Cardiology: No chest pain at rest Gastro GI: No abdominal pain, belching, bloating, change in bowel habits, change in stool character, coffee ground emesis, constipation, cramping, diarrhea, heartburn, difficulty swallowing, feeling full early, excessive flatus, incontinent of stools, Vomiting blood/hematemesis, Blood in stool, loose stools, Black,tarry stools, nausea/dyspepsia, pain with swallowing, vomiting or other Musc Musculoskeletal: No joint pain Skin Skin: No yellowing of the eye or itchy eyes Neuro Neurology: No behavioral changes Psych Psychiatric: No abnormal sleep pattern, No anxiety, No behavioral changes, No change in appetite and No depression Endo Endocrine: No fatigue or weight change Aller/Imm Allergy/Immunologic: No itchy eyes Inocente/Lymp Hematologic/Lymphatic: No easy bleeding or easy bruising Exam Const General: cooperative and comfortable Nutritional Appearance: average body habitus and well nourished [facility] Head: normal to inspection Ears: hearing grossly normal bilaterally Nose: external nose normal Face and sinus: normal facial exam Mouth: oral mucosae normal Throat: posterior oropharynx normal Eyes General: appearance normal, both eyes and all related structures Neck Neck: normal visual inspection Chest Chest palpation inspection: normal inspection of the chest and normal palpation of entire chest wall Resp Effort Inspection: normal respiratory effort Auscultation: Bilateral: Clear to Auscultation Cardio Palpation: normal PMI Rate: regular rate Rhythm: regular rhythm GI Inspection: normal to inspection Auscultation: normal bowel sounds Percussion: normal to percussion Palpation: no hepatosplenomegaly Skin General: no rashes or lesions noted Neuro General: patient alert Extrem General: normal to inspection Psych Affect: normal affect Quality Reporting Tobacco Screening (CMS 138) Smoking Status: Never smoker Assessment and Plan Assessment and Plan (1) GERD (gastroesophageal reflux disease): Status: Chronic Plan: She was discovered to have LA grade a erosive esophagitis on upper endoscopy. Biopsies were negative for intestinal metaplasia or Tyler's esophagus. She has been started on PPI therapy 40 mg p.o. twice daily. As long she takes the medicines on a scheduled basis she has no signs of heartburn, abdominal discomfort, bloating or indigestion. We will give her a refill for 40 mg p.o. twice a day for the next 3 months and then after that we will titrated down over the following 3 months. (2) Famil (more content not included)... Normal [facility] Colonoscopy Reporton 022 Colonoscopy Report [facility] Medical Records Department [address] [place] [address] Colonoscopy Report MR#: [id number] Acct: [id number] Name: ANNE MARIE ODOM Rep #: [id number] : 1970 51 From: Conrad Lyman DO PCP: Dr. Dot Rabago DO Status:[facility] Patient Name: Anne Marie Odom Procedure Date: 12/23/2021 6:45 AM Date of : 1970 Age: 51 Procedure: Colonoscopy Indications: Screening for colorectal malignant neoplasm Providers: Conrad Lyman DO Medicines: Monitored Anesthesia Care Patient Profile: This is a 51 year old female. Refer to note in patient chart for documentation of history and physical. Patient has symptoms of chronic dyspepsia. Last Colonoscopy: none. The patient's first colonoscopy is today. Complications: No immediate complications. Procedure: Pre-Anesthesia Assessment: - Prior to the procedure, a History and Physical was performed, and patient medications and allergies were reviewed. The risks and benefits of the procedure and the sedation options and risks were discussed with the patient. All questions were answered and informed consent was obtained. Patient identification and proposed procedure were verified by the physician in the pre-procedure area. Mental Status Examination: alert and oriented. Airway Examination: normal oropharyngeal airway and neck mobility. Respiratory Examination: clear to auscultation. CV Examination: normal. Prophylactic Antibiotics: The patient does not require prophylactic antibiotics. Prior Anticoagulants: The patient has taken no previous anticoagulant or antiplatelet agents. ASA Grade Assessment: II - A patient with mild systemic disease. After reviewing the risks and benefits, the patient was deemed in satisfactory condition to undergo the procedure. The anesthesia plan was to use moderate sedation / analgesia (conscious sedation). Immediately prior to administration of medications, the patient was re-assessed for adequacy to receive sedatives. The heart rate, respiratory rate, oxygen saturations, blood pressure, adequacy of pulmonary ventilation, and response to care were monitored throughout the procedure. The physical status of the patient was re-assessed after the procedure. After I obtained informed consent, the scope was passed under direct vision. Throughout the procedure, the patient's blood pressure, pulse, and oxygen saturations were monitored continuously. The Colonoscope was introduced through the anus and advanced to the terminal ileum. The colonoscopy was performed without difficulty. The patient tolerated the procedure well. The quality of the bowel preparation was good. Scope In: 6:46:43 AM Scope Withdrawal Time 0 hours 8 minutes 46 seconds Scope Out: 6:59:24 AM Total Procedure Duration Time 0 hours 12 minutes 41 seconds Findings: The perianal and digital rectal examinations were normal. A few small and large-mouthed diverticula were found in the recto-sigmoid colon, sigmoid colon, hepatic flexure and ascending colon. Two sessile polyps were found in the rectum and splenic flexure. The polyps were 1 to 2 mm in size. These polyps were removed with a hot snare. Resection and retrieval were complete. Verification of patient identification for the specimen was done. Estimated blood loss was minimal. Impression: - Diverticulosis in the recto-sigmoid colon, in the sigmoid colon, at the hepatic flexure and in the ascending colon. - Two 1 to 2 mm polyps in the rectum and at the splenic flexure, removed with a hot snare. Resected and retrieved. Recommendation: - Repeat colonoscopy in 5 years for surveillance. - Return to GI office. - Continue present medications. Procedure Code(s): --- Professional --- 74486, Colonoscopy, flexible; with removal of tumor(s), polyp(s), or other lesion(s) by snare technique CPT copyright 2017 [employer]. All rights reserved. The codes documented in this report are preliminary and upon operations project manager review may be revised to meet current compliance requirements. Conrad Lyman DO 12/23/2021 7:10:03 AM This report has been signed electronically. Number of Addenda: 1 Note Initiated On: 12/23/2021 6:45 AM Addendum Number: 1 Addendum Date: 02/20/2022 6:26:28 AM MAC was used as sedation for this procedure. Conrad Lyman DO 02/20/2022 6:26:34 AM This report has been signed electronically. 02/20/22643 Date Conrad Lyman DO Cosigner Signature: Date (if indicated) CC: Dr. Dot Rabago DO; Conrad Lyman DO Date Dictated: 12/23/2145 Date Transcribed: Application Support Manager: ANA Signed Normal [facility] EGD Reporton 12-23-2021 EGD Report [facility] Medical Records Department [address] [place] [id number] EGD Report MR#: [id number] Acct: [id number] Name: ANNE MARIE ODOM Rep #: [id number] : 1970 51 From: Conrad Lyman DO PCP: Dr. Dot Rabago DO Status:[facility] Patient Name: Anne Marie Odom Procedure Date: 12/23/2021 6:10 AM Date of : 1970 Age: 51 Procedure: Upper GI endoscopy Indications: Dyspepsia, Heartburn, Failure to respond to medical treatment Providers: Conrad Lyman DO Medicines: Monitored Anesthesia Care Patient Profile: This is a 51 year old female. Refer to note in patient chart for documentation of history and physical. Patient has symptoms of chronic dyspepsia. Complications: No immediate complications. Procedure: Pre-Anesthesia Assessment: - Prior to the procedure, a History and Physical was performed, and patient medications and allergies were reviewed. The risks and benefits of the procedure and the sedation options and risks were discussed with the patient. All questions were answered and informed consent was obtained. Patient identification and proposed procedure were verified by the physician in the pre-procedure area. Mental Status Examination: alert and oriented. Airway Examination: normal oropharyngeal airway and neck mobility. Respiratory Examination: clear to auscultation. CV Examination: normal. Prophylactic Antibiotics: The patient does not require prophylactic antibiotics. Prior Anticoagulants: The patient has taken no previous anticoagulant or antiplatelet agents. ASA Grade Assessment: II - A patient with mild systemic disease. After reviewing the risks and benefits, the patient was deemed in satisfactory condition to undergo the procedure. The anesthesia plan was to use moderate sedation / analgesia (conscious sedation). Immediately prior to administration of medications, the patient was re-assessed for adequacy to receive sedatives. The heart rate, respiratory rate, oxygen saturations, blood pressure, adequacy of pulmonary ventilation, and response to care were monitored throughout the procedure. The physical status of the patient was re-assessed after the procedure. After obtaining informed consent, the endoscope was passed under direct vision. Throughout the procedure, the patient's blood pressure, pulse, and oxygen saturations were monitored continuously. The Colonoscope was introduced through the mouth, and advanced to the second part of duodenum. The upper GI endoscopy was accomplished without difficulty. The patient tolerated the procedure well. Scope In: 6:40:25 AM Scope Out: 6:45:11 AM Total Procedure Duration Time 0 hours 4 minutes 46 seconds Findings: The Z-line was irregular and was found 37 cm from the incisors. Biopsies were taken with a cold forceps for histology. Verification of patient identification for the specimen was done. Estimated blood loss was minimal. A small hiatal hernia was present. Localized mild inflammation characterized by erosions and erythema was found in the gastric antrum. Biopsies were taken with a cold forceps for histology. Verification of patient identification for the specimen was done. Estimated blood loss was minimal. The first portion of the duodenum was normal. Biopsies were taken with a cold forceps for histology. Verification of patient identification for the specimen was done. Estimated blood loss was minimal. Impression: - Z-line irregular, 37 cm from the incisors. Biopsied. - Small hiatal hernia. - Gastritis. Biopsied. - Normal first portion of the duodenum. Biopsied. Recommendation: - Discharge patient to home. - Resume previous diet. - Continue present medications. - Await pathology results. Procedure Code(s): --- Professional --- 43434, Esophagogastroduodenoscopy, flexible, transoral; with biopsy, single or multiple CPT copyright 2017 [employer]. All rights reserved. The codes documented in this report are preliminary and upon operations project manager review may be revised to meet current compliance requirements. Conrad Lyman DO 12/23/2021 7:07:38 AM This report has been signed electronically. Number of Addenda: 1 Note Initiated On: 12/23/2021 6:10 AM Addendum Number: 1 Addendum Date: 02/20/2022 6:26:16 AM MAC was used as sedation for this procedure. Conrad Lyman DO 02/20/2022 6:26:20 AM This report has been signed electronically. 02/20/22 0643 Date Conrad Lyman DO Cosigner Signature: Date (if indicated) CC: Dr. Dot Rabago, ; Conrad Lyman DO Date Dictated: 12/23/21609 Date Transcribed: Application Support Manager: ANA Signed Normal [facility] H Pylori (initial)on 022 H Pylori (initial) PHYSICIAN [place] [address] SPECIMEN INFORMATION: Tissue Source: A ??? Antrum biopsy Clinical Info: GERD, family history of colon cancer Specimen Number: [id number] CPT code: 98844 METHODOLOGY: Deparaffinized sections of prefer/formalin-fixed tissue or PAP/DQ stained slides are incubated with monoclonal/polyclonal antibodies/oligonucleotide probes. Localization is made via biotin free immunoperoxidase method. Appropriate controls are performed and reacted as expected. Results on target cell population are indicated in the following table: RESULTS: ANTIBODY / CLONE RESULT Block A H Pylori (polyclonal) negative These tests were developed and their performance characteristics determined by [facility]. They may not have been cleared or approved by the U.S. Food and Drug Administration. The FDA has determined that such clearance or approval is not necessary. The above immunohistochemical/dualISH markers are ordered and reviewed by the Pathologist. INTERPRETATION: A. Antrum, biopsy: Negative for Helicobacter pylori organisms. AM:shan 12/24/2021 Signed (signature on file) Dr. Andrea Gardner, DO 12/24/21 1324 Normal [facility] Comment on above: Performed By: #### P H.PYLORI #### [facility] [address] [place], [address] ,Urineon 12-23-2021 Beta HCG ( test) Ql (U) Negative Normal [facility] Comment on above: Order Comment: urine in lab Result Comment: Very dilute urine specimens, as indicated by a low specific gravity, may not contain business banking representative levels of hCG. If is still suspected, a first morning urine specimen should be collected 48 hours later and tested. Performed By: #### L [phone] #### [facility] [address] [place], [address] Special Stain Group IIon Special Stain Group II OPERATION: Colono scopy, EGD ([facility]) with biopsies PRE-OP DIAGNOSIS: GERD, family history of colon cancer TISSUE SUBMITTED: A ??? Antrum biopsy for H. pylori and path, B ??? Distal esophagus biopsy, C ??? Splenic flexure polyp, D ??? Rectum polyp A. Gastric antrum, biopsy: Mild chronic gastritis. See comment. B. Distal esophagus, biopsy: Gastroesophageal junctional mucosa with mild chronic inflammation. No evidence of goblet cell metaplasia. See comment. C. Colonic polyp at splenic flexure, biopsy: Tubular adenoma. D. Rectal polyp, biopsy: Fragments of tubular adenoma. AM:shan 12/24/2021 A. The results of immunohistochemistry for Helicobacter pylori will be reported separately ([id number]). B. Alcian blue/PAS stain with matched control supports the above diagnosis. Slides are reviewed. A - Received in fixative is one container labeled with the patient's name and designated antrum biopsy. The specimen consists of two irregular fragments of light vance soft tissue that in aggregate measure 0.6 x 0.3 x 0.1 cm. The specimen is totally submitted in one cassette. B - Received in fixative is one container labeled with the patient's name and designated distal esophagus biopsy. The specimen consists of multiple irregular fragments of light vance soft tissue that in aggregate measure 1 x 0.5 x 0.1 cm. The specimen is totally submitted in one cassette. C - Received in fixative is one container labeled with the patient's name and designated splenic flexure polyp. The specimen consists of a vance-pink polyp measuring 0.5 x 0.5 x 0.3 cm. The specimen is totally submitted in one cassette. D - Received in fixative is one container labeled with the patient's name and designated rectum polyp. The specimen consists of a vance-pink polyp measuring 0.5 x 0.5 x 0.4 cm. The specimen is totally submitted in one cassette. / SJ:shan 12/23/2021 TC:3 CPT: 48014 x4, 68007 Signed (signature on file) Dr. Andrea Gardner DO 12/24/21 1231 Normal [facility] Comment on above: Performed By: #### P SSII #### [facility] [place], [address] Vital Signs Date Time Vital Sign Value Performing Clinician Neri cassidy 11-15-2023 10:58-0400 Body temperature 97.2 [degF] Iram Athy PA-C Work Phone: [facility] 11-15-2023 10:58-0400 Body weight 85.7 kg Iram Athy PA-C Work Phone: [facility] 11-15-2023 10:58-0400 Diastolic blood pressure 82 mm[Hg] Iram Athy PA-C Work Phone: [facility] 11-15-2023 10:58-0400 Heart rate 88 /min Iram Athy PA-C Work Phone: [facility] 11-15-2023 10:58-0400 Respiratory rate 16 /min Iram Athy PA-C Work Phone: [facility] 11-15-2023 10:58-0400 SaO2% (BldA) [Mass fraction] 98 % Iram Athy PA-C Work Phone: [facility] 11-15-2023 10:58-0400 Systolic blood pressure 142 mm[Hg] Iram Urbano PA-C Work Phone: [facility] 10-30-2022 12:46-0400 Body temperature 98 [degF] [facility] 10-30-2022 12:46-0400 Diastolic blood pressure 67 mm[Hg] [facility] 10-30-2022 12:46-0400 Heart rate 96 /min [facility] 10-30-2022 12:46-0400 Respiratory rate 16 /min [facility] 10-30-2022 12:46-0400 SaO2% (BldA) [Mass fraction] 96 % [facility] 10-30-2022 12:46-0400 Systolic blood pressure 129 mm[Hg] [facility] 10-30-2022 08:35-0400 Body height 165.1 cm [facility] 10-30-2022 08:35-0400 Body mass index (BMI) [Ratio] 31.1 kg/m2 [facility] 10-30-2022 08:35-0400 Body weight 84.82 kg [facility] 10-03-2022 16:14-0400 Body temperature 98.7 [degF] [facility] 10-03-2022 16:14-0400 Diastolic blood pressure 81 mm[Hg] [facility] 10-03-2022 16:14-0400 Heart rate 102 /min [facility] 10-03-2022 16:14-0400 Respiratory rate 18 /min [facility] 10-03-2022 16:14-0400 SaO2% (BldA) [Mass fraction] 100 % [facility] 10-03-2022 16:14-0400 Systolic blood pressure 106 mm[Hg] [facility] 10-03-2022 08:07-0400 Body weight 86.8 kg [facility] 10-03-2022 00:31-0400 Body mass index (BMI) [Ratio] 31.8 kg/m2 [facility] Encounters Encounter Date Encounter Type Care Provider Facility Start: 04-27-2024 End: 04-27-2024 ambulatory [facility] Start: 04-27-2024 Encounter for genera l adult medical examination without abnormal findings [facility] WILL[facility] Start: 03-14-2024 End: 03-14-2024 ambulatory ARUN WILLIS [facility] Start: 11-15-2023 End: 11-15-2023 ambulatory Facility:[facility] Start: 11-15-2023 End: 11-15-2023 Patient encounter procedure Iram Urbano PA-C Work Phone: [facility] Comment on above: Acute right-sided th oracic back pain (Primary Dx); Pleuritic pain Start: 05-13-2023 End: 05-13-2023 ambulatory ARUN WILLIS [facility] Start: 05-06-2023 End: 05-11-2023 ambulatory ARUN Pham [employer]GET[employer]AD[employer] Facility:A Start: 05-06-2023 End: 05-06-2023 ambulatory ARUN WILLIS [facility] Start: 11-19-2022 End: 11-20-2022 ambulatory WENDI SHAY MD Facility:B Start: 11-05-2022 End: 11-05-2022 Patient encounter procedure [facility] Start: 11-05-2022 End: 11-05-2022 ambulatory No Primary Care Physician [facility] Work Phone: Start: 10-30-2022 End: 10-30-2022 ambulatory No Primary Care Physician Facility:[facility] Start: 10-30-2022 End: 10-30-2022 Admission to same day surgery center [facility] Start: 10-30-2022 End: 10-30-2022 ambulatory [facility] Work Phone: Start: 10-03-2022 End: 10-03-2022 ambulatory DEFINED NOT Facility:[facility] Start: 10-02-2022 End: 10-03-2022 Evaluation and management of inpatient [facility] Start: 01-06-2022 End: 01-06-2022 ambulatory Conrad Lyman Facility:[facility] Start: 12-23-2021 End: 12-23-2021 ambulatory Conrad Friend Facility:[facility] Procedures Date Procedure Procedure Detail Performing Clinician Start: 11-15-2023 Urnls dip stick/tabl et rgnt auto w/o microscopy Iram Urbano PA-C Work Phone: Start: 11-05-2022 Diagnostic radiograp hy of abdomen Start: 10-30-2022 Cysto,Ureteroscopy,R etro,D il,Ext,Stent (Right) Start: 10-30-2022 Fluoroscopic guidance Start: 10-03-2022 Fluoroscopic guidance Plan of Treatment Date Care Activity Detail Author Start: 01-17-2024 Influenza vaccination Influenz a Vaccine (Season Ended) [facility] Start: 05-18-2023 Behavioral Health Screening Be havioral Health Screening [facility] Start: 01-16-2023 Covid-19 Vaccine ( season) Covid-19 Vaccine ( season) [facility] Start: 10-30-2022 Anes lithotrp xtrcor p shock wave w/o water bath ANESTH KIDNEY STONE DESTRUCT [facility] Start: 10-30-2022 Cysto w/ureteroscopy w/rmvl/manj stones CYSTOURETERO W/STONE REMOVE [facility] Start: 10-30-2022 Cysto/uretero w/lith otripsy &indwell stent insrt CYSTO/URETERO W/LITHOTRIPSY [facility] Start: 10-30-2022 Patient discharge [facility] Start: 10-03-2022 Patient discharge [facility] Start: 10-03-2022 Oxygen therapy [facility] Start: 10-03-2022 Admission procedure [facility] Start: 10-03-2022 Ambulation without limitation [facility] Start: 10-03-2022 Assessment of risk o f venous thromboembolism [facility] Start: 10-03-2022 Insertion of cathete r into peripheral vein [facility] Start: 10-03-2022 Measuring intake and output [facility] Start: 10-03-2022 Providing care accor ding to standard [facility] Start: 10-03-2022 End: 10-03-2022 [facility] Start: 10-03-2022 Following clinical p athway protocol [facility] Start: 10-02-2022 Anes transurethral w/urethrocystoscopy nos ANESTH BLADDER SURGERY [facility] Start: 10-02-2022 Cysto w/insert urete ral stent CYSTOSCOPY AND TREATMENT [facility] Start: 10-02-2022 Cystourethroscopy wi th biopsy CYSTOSCOPY W/BIOPSY(S) [facility] Start: 2020 Shingrix Vaccine (1 of 2) Esparza grix Vaccine (1 of 2) [facility] Start: 2015 Diabetes Screening Diabetes Screenin g [facility] Start: 2015 Lipid panel Lipid Screening [facility] Start: 2015 Screening for malign ant neoplasm of colon [facility] Start: 2010 Screening for malign ant neoplasm of breast Mammogram Screening [facility] Start: 1991 Screening for malign ant neoplasm of cervix Cervical Cancer Screening [facility] Start: 1989 Hepatitis B Vaccine (1 of 3 - 19+ 3-dose series) Hepatitis B Vaccine (1 of 3 - 19+ 3-dose series) [facility] Start: 1989 Urine microalbumin profile DTa P,Tdap,Td Vaccine (1 - Tdap) [facility] Start: 1988 Hepatitis C screening Hepatitis C Sc rebecca [facility] Start: 1988 HIV screening HIV Screening [facility] Bacteria identified in Urine by Culture URINE CULTURE Microbiology Routine Acute right-sided thoracic back pain Ordered: 11/15/2023 [facility] Work Phone: Comment on above: Ordered: 11/15/2023 Calculus analysis [facility] Measurement of weigh t of calculus [facility] Origin of [facility] Patient referral [facility] Work Phone: Specimen color determination [facility] Payers Date Payer Category Payer Unknown [id number] 2021 Self-pay [id number] 2021 Unknown [id number] 2018 Unknown MMO MMO [employer] PPO [id number] 2018-Present [phone] [address] [place] [address] PPO [id number] 2018 Unknown [id number] 1970 Unknown [id number]. 627 1970 Unknown [id number]. 627 1970 Unknown [id number] 2.840.1.077013.3.579.2. 651 1970 Unknown [id number] 2.840.1.588720.3.579.2. 651 1970 Unknown [id number] 2.840.1.300057.3.579.2. 651 1970 Unknown [id number] [id number]. 651 Private Health Insurance [id number] Unknown [facility] [id number] Unknown [facility] [id number] Unknown [id number]. 462 Unknown [id number] [id number]. 462 Unknown [id number] 2.16.840.1.199069.3.579.2. 462 Unknown [id number] [id number]. 462 Unknown [id number] [id number]. 462 Unknown [id number]. 462 Social History Date Type Detail Facility Start: 10-23-2022 Tobacco smoking status NHIS Unknown if ever smoked [facility] Start: 1970 Sex Assigned At Female [facility] Start: 11-15-2023 Tobacco smoking status NHIS Never smoked tobacco [facility] Start: 11-15-2023 Tobacco use and exposure Smokeless tobacco non-user [facility] Start: 11-15-2023 History of Social function [facility] Start: 11-15-2023 Tobacco use panel [facility] Start: 1970 Sex Assigned At Not on file [facility] NEGATED: Highlighted row [facility] Medical Equipment Procedure Code Equipment Code Equipment Origin al Text Equipment Identifier Dates Cystoscopy, with retrograde pyelogram, ureteroscopy, laser procedure, and stent inser STENT,URETERAL PIGTAIL [id number] FDA Start: 10-03-2022 Cystoscopy, with retrograde pyelogram, ureteroscopy, laser procedure, and stent inser STENT,URETERAL PIGTAIL [id number] FDA Start: 10-03-2022 Polymeric ureter al stent [id number] FDA Start: 10-30-2022 Goals Date Patient Goal Desired Activity /State Functional Status Date Assessment Result Facility 10-03-2022 Functional status Ambulates;Up ad aleta [facility] Work Phone: Mental Status Date Assessment Result Facility 10-30-2022 Cognitive function Voice/Name [facility] Work Phone: 10-03-2022 Cognitive function Level Of Cons ciousness Awake;Alert;Appropriate;Follow s Commands [facility] Work Phone: 10-03-2022 Cognitive function Voice/Name [facility] Work Phone: 10-03-2022 Cognitive function Appropriate;Cooperativ e [facility] Work Phone: Progress note 11-15-2023 Note Date & Type Note Facility 11-15-2023 Note HNO ID: [id number] Author: IRAM URBANO PA-C Service: ? 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 Subjective Anne Marie Odom is a 53 year old female. HPI Presents with right mid back pain over the past 3 days. She states that hurts to take a deep breath. She denies any pain in her abdomen. No urinary frequency, urgency, hematuria. She states she has had several kidney stones and was concerned that is what was going on. She is on her menstrual cycle so unsure if blood in urine or from menses. No fever. No vomiting. Patient states pain worsens with of breath. She has not had a cough or recent URI symptoms. No injury to her back. 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 Denies history of PE or DVT. No recent trips. No recent surgeries. No leg pain or swelling. She is not a smoker. She is not on any exogenous hormones. Review of Systems Constitutional: Negative. HENT: Negative. Respiratory: Negative. Cardiovascular: Negative. Gastrointestinal: Negative. Genitourinary: Positive for flank pain and vaginal bleeding. Negative for frequency and pelvic pain. Musculoskeletal: Positive for back pain. Hematological: Negative. Psychiatric/Behavioral: Negative. All other systems reviewed and are negative. History reviewed. No pertinent past medical history. Current Outpatient Medications Medication Sig Dispense Refill levothyroxine sodium (LEVOTHYROXINE ORAL) Take by mouth. No current facility-administered medications for this visit. PAST SURGICAL HISTORY Procedure Laterality Date LIG/TRNSXJ FLP TUBE ABDL/VAG APPR UNI/BI SALPINGOSTOMY No family history on file. Social History Tobacco Use Smoking status: Never Smokeless tobacco: Never Objective BP 142/82 Pulse 88 Temp 36.2 ?C (97.2 ?F) (Tympanic) Resp 16 Wt 85.7 kg (188 lb 15 oz) SpO2 98% Physical Exam Vitals reviewed. Constitutional: Appearance: Normal appearance. Comments: Patient appears in moderate pain here HENT: Head: Normocephalic and atraumatic. Cardiovascular: Rate and Rhythm: Normal rate and regular rhythm. Heart sounds: Normal heart sounds. Pulmonary: Effort: Pulmonary effort is normal. Breath sounds: Normal breath sounds. Comments: Back pain not reproducible on ROM or palpation. No rash noted Skin: General: Skin is warm and dry. Neurological: Mental Status: She is alert. Assessment and Plan ASSESSMENT/PLAN: 1. Acute right-sided thoracic back pain - ICD9: 724.1, ICD10: M54.6 (primary diagnosis) Patient appears in moderate pain here, worse with a deep breath. I cannot reduce the pain on palpation or with range of motion. Patient does have blood in urine however on menses, she has history of several kidney stones before and is concerned for that as well. DDx also include PE or musculoskeletal pain. I do not have any imaging available today. Discussed with patient I feel she needs higher level of care to work this up, she will go to [facility] ED to be seen. ER passport sent. - UA DIP, URINE (POC) - URINE CULTURE 2. Pleuritic pain - ICD9: 786.52, ICD10: R07.81 Iram Urbano PA-C [facility] History of Present illness Narrative 11-15-2023 Iram Urbano PA-C - 11/15/2023 11:15 AM EDT Note Date & Type Note Facility 11-15-2023 History of Presen t illness Narrative This note was created using Trony Solarter. Subjective Anne Marie Odom is a 53 year old female. HPI Presents with right mid back pain over the past 3 days. She states that hurts to take a deep breath. She denies any pain in her abdomen. No urinary frequency, urgency, hematuria. She states she has had several kidney stones and was concerned that is what was going on. She is on her menstrual cycle so unsure if blood in urine or from menses. No fever. No vomiting. Patient states pain worsens with of breath. She has not had a cough or recent URI symptoms. No injury to her back. 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 Denies history of PE or DVT. No recent trips. No recent surgeries. No leg pain or swelling. She is not a smoker. She is not on any exogenous hormones. Review of Systems Constitutional: Negative. HENT: Negative. Respiratory: Negative. Cardiovascular: Negative. Gastrointestinal: Negative. Genitourinary: Positive for flank pain and vaginal bleeding. Negative for frequency and pelvic pain. Musculoskeletal: Positive for back pain. Hematological: Negative. Psychiatric/Behavioral: Negative. All other systems reviewed and are negative. History reviewed. No pertinent past medical history. Current Outpatient Medications Medication Sig Dispense Refill levothyroxine sodium (LEVOTHYROXINE ORAL) Take by mouth. No current facility-administered medications for this visit. PAST SURGICAL HISTORY Procedure Laterality Date LIG/TRNSXJ FLP TUBE ABDL/VAG APPR UNI/BI SALPINGOSTOMY No family history on file. Social History Tobacco Use Smoking status: Never Smokeless tobacco: Never Objective BP 142/82 Pulse 88 Temp 36.2 C (97.2 F) (Tympanic) Resp 16 Wt 85.7 kg (188 lb 15 oz) SpO2 98% Physical Exam Vitals reviewed. Constitutional: Appearance: Normal appearance. Comments: Patient appears in moderate pain here HENT: Head: Normocephalic and atraumatic. Cardiovascular: Rate and Rhythm: Normal rate and regular rhythm. Heart sounds: Normal heart sounds. Pulmonary: Effort: Pulmonary effort is normal. Breath sounds: Normal breath sounds. Comments: Back pain not reproducible on ROM or palpation. No rash noted Skin: General: Skin is warm and dry. Neurological: Mental Status: She is alert. Assessment and Plan ASSESSMENT/PLAN: 1. Acute right-sided thoracic back pain - ICD9: 724.1, ICD10: M54.6 (primary diagnosis) Patient appears in moderate pain here, worse with a deep breath. I cannot reduce the pain on palpation or with range of motion. Patient does have blood in urine however on menses, she has history of several kidney stones before and is concerned for that as well. DDx also include PE or musculoskeletal pain. I do not have any imaging available today. Discussed with patient I feel she needs higher level of care to work this up, she will go to [facility] ED to be seen. ER passport sent. - UA DIP, URINE (POC) - URINE CULTURE 2. Pleuritic pain - ICD9: 786.52, ICD10: R07.81 Iram Urbano PA-C documented in this encounter [facility] Discharge summary 10-30-2022 Note Date & Type Note Facility 10-30-2022 Discharge summary Note Date/Time October 30, 2022 9:02 am [facility] Medical Records Department [address] [place] [address] Instructions for Home/Discharge Instructions 10/30/22 0902 MR#: [id number] Acct: [id number] Name: ANNE MARIE ODOM Rep #:[id number] : 1970 52 From: Macarena Pham PCP: Care Physician,No Primary Status :REG [facility] Discharge Instructions Diet Discharge Diet: No restrictions Activity Discharge Activity: Return to Normal Activity Dressing / Incision Call your doctor if you observe: Fever of 101 or Higher, Inability to urinate and Inability to have a bowel movement Follow Up Care Please Follow Up With: Macarena Driscoll MD When: call office for appt Test Results: Test results from this visit will be discussed in further detail at your follow-up appointment, if applicable. Discharge Plan Admission Attending Provider: Macarena Driscoll Primary Care Provider: Care Physician,No Primary Discharge Orders/Prescriptions Prescriptions: New hydrocodone-acetaminophen [hydrocodone-acetaminophen] 5-325 mg tablet 1 tab PO Q6H PRN PRN (Reason: Pain) 7 Days Qty: 20 0RF Continued jejvixwfwlfv-Ea-fyvh-minerals 18-0.4 mg Tablet 1 tab PO DAILY biotin 1 mg Capsule 1 mg PO DAILY atorvastatin 20 mg tablet 20 mg PO DAILY levothyroxine 100 mcg Tablet 100 mcg PO DAILY phenazopyridine [Pyridium] 200 mg tablet 200 mg PO TID PRN PRN (Reason: Bladder Spasms) 7 Days Qty: 30 3RF Referrals / Follow Up: Care Physician,No Primary [Primary Care Provider] - Disposition Disposition (needs filled in before D/C Order can be placed): Home, Self Care 10/30/22 1037<Electronically signed by Macarena Driscoll MD>Macarena Driscoll MD CC: No Primary Care Physician ~ Signed [facility] Work Phone: Procedure note 10-30-2022 Note Date & Type Note Facility 10-30-2022 Procedure note [facility] Evaluation note 10-16-2022 Note Date & Type Note Facility 10-16-2022 Evaluation note Diagnosis Onset Date Ureteral calculus October, acute Flank pain resolved [facility] Work Phone: Clinical Note 10-03-2022 Note Date & Type Note Facility 10-03-2022 Note [facility] Medical Records Department [address] [place] [address] History Physical Exam 10/03/22 1104 MR#: [id number] Acct: [id number] Name: ANNE MARIE ODOM Rep #: [id number] : 1970 52 From: Macarena Driscoll MD PCP: NOT,DEFINED Status:ADM MARY [place] [facility] [id number] HPI - General General Date of Admission: 10/02/22 Date of Service: 10/03/22 Chief Complaint: Right flank pain, abdominal pain, nausea and vomiting HPI Narrative The patient is a 52-year-old female who [facility] [address] scan was performed for flank pain and nausea and vomiting revealing a 6 mm distal right ureteral calculus. She presented to the emergency room in [place] with uncontrolled pain, nausea and vomiting. Her pain is still not well controlled despite intravenous medication administration. We discussed op tions and she has decided to proceed with surgical intervention. Informed consent was obtained. [facility] Medical History Anxiety Back pain Flank pain Gastric reflux High cholesterol Hypothyroid Ureteral calculus Wears dentures Home Medications atorvastatin 20 mg tablet 20 mg PO DAILY Check with primary doctor 12/19/21 [History Last Taken ] biotin 1 mg capsule 1 mg PO DAILY Check with primary doctor 12/19/21 [History Last Taken 10/01/22] levothyroxine 100 mcg tablet 100 mcg PO DAILY Check with primary doctor 12/19/21 [History Last Taken 10/02/22] jlycarjdkiaf-La-bxbn-minerals 18 mg-0.4 mg tablet 1 tab PO DAILY Check with primary doctor 12/19/21 [History Last Taken 09/26/22] Allergy/AdvReac Type Severity Reaction Status Date / Time No Known Allergies Allergy Verified 10/02/22 20:33 Surgical History No pertinent past surgical history Social History Smoking Status: Never smoker ROS Constitutional Constitutional: Reports systems reviewed and no addt'l complaints, except as documented; Denies fever(s) Eyes Eyes: Reports systems reviewed and no addt'l complaints, except as documented ENT HEENT: Reports systems reviewed and no addt'l complaints, except as documented Cardiovascular Cardiovascular: Reports systems reviewed and no addt'l complaints, except as documented, nausea and vomiting; Denies chest pain or dyspnea Respiratory/Chest Respiratory/Chest: Denies chest congestion, inability to speak or tachypnea Gastrointestinal Gastrointestinal: Reports abdominal pain, nausea and vomiting Genitourinary Genitourinary: Reports flank pain, low back pain, urinary frequency and urinary urgency; Denies hematuria Musculoskeletal Musculoskeletal: Reports systems reviewed and no addt'l complaints, except as documented Integumentary Integumentary: Reports systems reviewed and no addt'l complaints, except as documented Neurologic Neurologic: Reports systems reviewed and no addt'l complaints, except as documented Psychiatric Psychiatric: Reports systems reviewed and no addt'l complaints, except as documented Endocrine Endocrinology: Reports systems reviewed and no addt'l complaints, except as documented Hematologic/Lymphatic Hematologic/Lymphatic: Reports systems reviewed and no addt'l complaints, except as documented Allergic/Immunologic Allergic/Immunologic: Reports systems reviewed and no addt'l complaints, except as documented Vital Signs Vital Signs Vital Signs: 10/02/22 20:31 10/02/22 20:33 10/03/22 00:14 Temperature 97.6 F L 97.8 F Temperature Source Temporal Temporal Pulse Rate 102 H 72 Respiratory Rate 18 18 Respiratory Effort Normal Non-Labored Respiratory Depth Respiratory Pattern Normal Blood Pressure 131/81 H 135/64 H Blood Pressure Mean 97 87 Blood Pressure Source Blood Pressure Position Blood Pressure Location Pulse Ox 100 98 Oxygen Delivery Method Room Air Room Air 10/03/22 00:31 10/03/22 00:25 10/03/22 05:21 Temperature 97.8 F 99.1 F Temperature Source Temporal Oral Pulse Rate 107 H 102 H Respiratory Rate 18 18 Respiratory Effort Normal Non-Labored Respiratory Depth Normal Respiratory Pattern Normal Blood Pressure 137/76 H 144/81 H Blood Pressure Mean 96 102 Blood Pressure Source Monitor Monitor Blood Pressure Position Semi-Fowlers Semi-Fowlers Blood Pressure Location Right Arm Right Arm Pulse Ox 100 99 Oxygen Delivery Method Room Air Room Air Room Air 10/03/22 05:20 10/03/22 07:05 10/03/22 08:19 Temperature Temperature Source Pulse Rate Respiratory Rate Respiratory Effort Normal Non-Labored Normal Non-Labored Respiratory Depth Normal Normal Respiratory Pattern Normal Normal Blood Pressure Blood Pressure Mean Blood Pressure Source Blood Pressure Pos (more content not included)... [facility] Clinical Note 12-23-2021 Note Date & Type Note Facility 12-23-2021 Note [facility] Medical Records Department [address] [place] [address] History Physical Exam 12/23/21 0634 MR#: [id number] Acct: [id number] Name: ANNE MARIE ODOM Rep #: [id number] : 1970 51 From: Conrad Friend DO PCP: Dr. Dot Rabago, DO Status:[facility] Location: [place] [address] History and Physical Date of Admission: 12/23/21 ANNE MARIE ODOM, is a 51 F who presents to the office today for Initial consultation. Anne Marie established with this clinic 5 as a self-referral for screening colonoscopy. She has never had a colonoscopy performed. Onset age 50, she began eating a lot of Taquis around that time. She noticed an increase of symptoms and stopped eating them. Also notes issue with spicy food and red sauces. Symptoms well managed with omeprazole 20mg BID when she remembers to take it. Symptoms occur about once a week with very infrequent severe reflux. Family history includes mother age 77 with colon cancer s/p surgery. ROS Const Constitutional: No fatigue, malaise, night sweats, weight change, sleep problems, abnormal sleep pattern or change in appetite ENT ENT: No difficulty swallowing, hoarseness or sore throat Cardio Cardiology: No chest pain at rest Gastro GI: No abdominal pain, belching, bloating, change in bowel habits, change in stool character, coffee ground emesis, constipation, cramping, diarrhea, heartburn, difficulty swallowing, feeling full early, excessive flatus, incontinent of stools, Vomiting blood/hematemesis, Blood in stool, loose stools, Black,tarry stools, nausea/dyspepsia, pain with swallowing, vomiting or other Musc Musculoskeletal: No joint pain Skin Skin: No yellowing of the eye or itchy eyes Neuro Neurology: No behavioral changes Psych Psychiatric: No abnormal sleep pattern, No anxiety, No behavioral changes, No change in appetite and No depression Endo Endocrine: No fatigue or weight change Aller/Imm Allergy/Immunologic: No itchy eyes Inocente/Lymp Hematologic/Lymphatic: No easy bleeding or easy bruising Exam Const General: cooperative and comfortable Nutritional Appearance: average body habitus and well nourished [facility] Head: normal to inspection Ears: hearing grossly normal bilaterally Nose: external nose normal Face and sinus: normal facial exam Mouth: oral mucosae normal Throat: posterior oropharynx normal Eyes General: appearance normal, both eyes and all related structures Neck Neck: normal visual inspection Chest Chest palpation inspection: normal inspection of the chest and normal palpation of entire chest wall Resp Effort Inspection: normal respiratory effort Auscultation: Bilateral: Clear to Auscultation Cardio Palpation: normal PMI Rate: regular rate Rhythm: regular rhythm GI Inspection: normal to inspection Auscultation: normal bowel sounds Percussion: normal to percussion Palpation: no hepatosplenomegaly Skin General: no rashes or lesions noted Neuro General: patient alert Extrem General: normal to inspection Psych Affect: normal affect Quality Reporting Tobacco Screening ([facility] 138) Smoking Status: Never smoker Assessment and Plan Assessment and Plan (1) Family history of colon cancer: ?Status:???Acute ?Plan - Dr. Martines Friend, DO: This will be her first colonoscopy.??? Her mother developed colon cancer at 77.??? Even though that is a first-degree relative due to her advanced age above 75 we do not list that as a significant risk factor.??? She was explained alternatives, risk, benefits including outstanding bleeding, infection, sepsis, perforation, need for emergent surgery .??? She will have an ASA of 1. (2) GERD (gastroesophageal reflux disease): ?Status:???Acute ?Plan - Dr. Martines Friend, DO: She has a 2-year history of severe GERD that does very well with twice daily omeprazole 20mg.??? I would recommend screening for Tyler's esophagus for her and I would switch her to 40 mg of pantoprazole once a day in the morning.??? I would not give her twice a day PPI therapy unless she was determined to have long segment Tyler's esophagus, refractory to 40 mg of pantoprazole or equivalent dosing and refractory H2 receptor tejinder in the evening in the setting of known gastroparesis. I have re-examined the patient. There are no clinical changes since date of exam. 12/23/21 0634 Cosigner Signature (if applicable): CC: Dr. Dot Rabago, DO; Conrad Lyman, DO Signed [facility] Evaluation note Note Date & Type Note Facility Evaluation note Diagnosis Acute right-sided thoracic back pain- Primary Pleuritic pain Painful respiration documented in this encounter [facility] Discharge instructions Note Date & Type Note Facility Hospital Discharge instructions Additional Instructions Implant Used?: Yes [facility] Work Phone: Chief Complaint and Reason for Visit Chief Complaint NEPHROLITHIASIS, HYD RONEPHROSIS, INTRACTABLE PAIN RT CYSTO, URETEROSCOPY, LASER, EXT, STENT Reason for Visit Ureteral calculus Flank pain Chief Complaint NEPHROLITHIASIS, HYD RONEPHROSIS, INTRACTABLE PAIN RT CYSTO, URETEROSCOPY, LASER, EXT, STENT KUB- URETERAL CALC. RENAL CALC. Reason for Visit Ureteral calculus Flank pain Advance Directives No Advanced Directives Records Found Advance Directive Response Recorded Date/ Time Living Will No October 23, 2022 1 0:23am Power of Larder Cook No October 23, 2022 10:23am Summary Purpose Family History No Family History Records FoundNo Family History Records FoundNo Family History Records FoundNo Family History Records Found Additional Source Comments Care Teams (unrecognized sec tion and content) Team Status: Active Member Role Status Dates No Primary Care Physician Primary Care Provider Active Team Status: Inactive Member Role Status Dates Dr. Prashanth Meza DO Emergency Provider Active Dr. Macarena Driscoll MD Admit Provider, Attending Provi mike Active Team Status: Inactive Member Role Status Dates Dr. Macarena Driscoll MD Attending Provider, Referring Itz rice Active No Primary Care Physician Primary Care Provider Active Team Status: Inactive Member Role Status Dates No Primary Care Physician Primary Care Provider Active Dr. Macarena Driscoll MD Attending Provider, Referring P dwayne Active INFORMATION SOURCE (unrecogn ized section and content) DATE CREATED AUTHOR 11/11/2022 [facility] DATE CREATED AUTHOR AUTHOR'S ORGANIZ ATION 05/19/2023 [facility] ([place]) DATE CREATED AUTHOR AUTHOR'S ORGANIZ ATION 04/30/2024 [facility] DATE CREATED AUTHOR AUTHOR'S ORGANIZ ATION 05/02/2024 [facility] Source Comments (unrecognize d section and content) In the event this informatio n is protected by the Federal Confidentiality of Alcohol and Drug Abuse Patient Records regulations: The Federal rules restrict any use of the information to criminally investigate or prosecute any alcohol or drug abuse patient.[facility] Reason for Visit (unrecogniz ed section and content) Reason Comments Back Pain X 1 week FOR RECORDS PERTAINING TO PATIENTS WHO ARE OR HAVE BEEN ENROLLED IN A CHEMICAL DEPENDENCY/SUBSTANCEABUSE PROGRAM, SOME INFORMATION MAY BE OMITTED. This clinical summary was aggregated from multiple sources. Caution should be exercised in using it in the provision of clinical care. This summary normalizes information from multiple sources, and as a consequence, information in this document may materially change the coding, format and clinical context of patient data. In addition, data may be omitted in some cases. CLINICAL DECISIONS SHOULD BE BASED ON THE PRIMARY CLINICAL RECORDS. [facility]. provides no warranty or guarantee of the accuracy or completeness of information in this document.
--- OUTSIDE RECORDS SUMMARY | 2024-11-29 21:58 | XMS RPT_ITS | CCD ---
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 0 Active Vuvjtaetpxxh-Ox-Sxex-Mineral s (2 sources) Start: 12-19-2021 take 1 tablet by mouth once daily Rsrqrahtdhry-Ck-Cpbi-Minerals Active 1 TABLET PO DAILY December 19, [...] Vit D,1,25 Dihydroxy 53.8 pg/mL Normal 19.9-79.3 [facility] Comment on above: Result Comment: [place] [address] Ricardo Otto III, M.D. [id number] Performed By: #### 2 91204 #### [facility],[address] [place] [address]4871 1,25-dihydroxyvitamin D3 [Ma ss/Vol]on 04-27-2024 VIT D1,25 DIHYDROXY 53.8 pg/mL Normal 19.9-79.3 [facility] Comment on above: Order Comment: Speci men Type: BLOOD SPECIMEN Ordering Facility: [facility] Address: [address] [place] [address] Performed By: #### 1 649-3 #### [facility] CLIA [id number] [address] [place] [address] [place] CBC + DIFFon 04-27-2024 Baso # 0.06 x10EE3/UL Normal 0.00 - 0.10 [facility] Comment on above: Performed By: #### 2 59471 #### [facility],[address] [place] [address] 36279 Basophils/100 WBC (Bld) 0.8 % Normal 0.0 - 2.0 [facility] Comment on above: Performed By: #### 2 43230 #### [facility],[address] [place], [place] [address] CBC + DIFF Normal [facility] Comment on above: Result Comment: CBC- COMPLETE BLOOD COUNT Performed By: #### 2 90875 #### [place] [address] EO # 0.17 x10EE3/UL Normal 0.00 - 0.50 [facility] Comment on above: Performed By: #### 2 81589 #### [place] [address] Eosinophils/100 WBC (Bld) 2.4 % Normal 0.0 - 7.0 [facility] Comment on above: Performed By: #### 2 29718 #### [place] [address] Erythrocyte distribution width (RBC) [Ratio] 12.8 % Normal 12.0 - 15.6 [facility] Comment on above: Performed By: #### 2 93081 #### [place] [address] Hematocrit (Bld) [Volume fraction] 40.5 % Normal 34.0 - 46.0 [facility] Comment on above: Performed By: #### 2 53740 #### [place] [address] Hemoglobin (Bld) [Mass/Vol] 13.7 g/dL Normal 12.0 - 16.0 [facility] Comment on above: Performed By: #### 2 55035 #### [place] [address] Lymph # 1.99 x10EE3/UL Normal 0.80 - 2.80 [facility] Comment on above: Performed By: #### 2 92708 #### [place] [address] Lymphocytes/100 WBC (Bld) 27.7 % Normal 20.0 - 45.0 [facility] Comment on above: Performed By: #### 2 08802 #### [address] [address] MANUAL DIFF N/A Normal [facility] Comment on above: Performed By: #### 2 98822 #### [facility],[address] [place] [address] MCH (RBC) [Entitic mass] 30 pg Normal 27 - 33 [facility] Comment on above: Performed By: #### 2 97910 #### [place] [address] MCHC 34 X10 3 Normal 32 - 36 [facility] Comment on above: Performed By: #### 2 91568 #### [place] [address] MCV (RBC) [Entitic vol] 89 fL Normal 80 - 99 [facility] Comment on above: Performed By: #### 2 47867 #### [place] [address] [place] # 0.53 x10EE3/UL Normal 0.20 - 1.00 [facility] Comment on above: Performed By: #### 2 01538 #### [place] [address] MONOS % 7.4 % Normal 0.0 - 10.0 [facility] Comment on above: Performed By: #### 2 79590 #### [facility],[address] [place] [address] Morphology Néstor (Bld) [Interp] N/A Normal [facility] Comment on above: Performed By: #### 2 84709 #### [place] [address] Neut # 4.44 x10EE3/UL Normal 1.50 - 7.10 [facility] Comment on above: Performed By: #### 2 45160 #### [place] [address] Neutrophils/100 WBC (Bld) 61.8 % Normal 46.0 - 76.0 [facility] Comment on above: Performed By: #### 2 08616 #### [facility],[address] [place] [address] 59305 PLATELET 301 x10EE3/UL Normal 150 - 450 [facility] Comment on above: Performed By: #### 2 13719 #### [facility],[address] [place], [place] [address] Platelet mean volume (Bld) [Entitic vol] 9.2 fL Normal 6.6 - 10.5 [facility] Comment on above: Result Comment: AUTO MATED DIFFERENTIAL Performed By: #### 2 47455 #### [place] [id number] RBC 4.54 x 10EE6/UL Normal 4.10 - 5.30 [facility] Comment on above: Performed By: #### 2 91551 #### [facility],[address] [place], [place] [address] WBC 7.2 x 10EE3/UL Normal 4.5 - 10.8 [facility] Comment on above: Performed By: #### 2 16677 #### [facility],[address] [place], [place] [address] CMP with eGFRon 04-27-2024 AGE 54 years Normal [facility] Comment on above: Performed By: #### 2 55430 #### [facility],[address] [place], [place] [address] Albumin [Mass/Vol] 3.5 g/dL Normal 3.4 - 5.0 [facility] Comment on above: Performed By: #### 2 35276 #### [address] [address] Albumin/Globulin [Mass ratio] 1.0 {ratio} Normal 0.9 - 1.6 [facility] Comment on above: Performed By: #### 2 12392 #### [facility],[address] [place], [place] [address] ALK PHOS 67 U/L Normal 46 - 116 [facility] Comment on above: Performed By: #### 2 73333 #### [facility],[address] [place] [address] 97949 ALT [Catalytic activity/Vol] 21 U/L Normal 16 - 63 [facility] Comment on above: Performed By: #### 2 41530 #### [facility],[address] [place], [place] [address] Anion gap [Moles/Vol] 10 mmol/L Normal 10 - 20 [facility] Comment on above: Performed By: #### 2 11460 #### [facility],[address] [place], [place] [address] AST [Catalytic activity/Vol] 16 U/L Normal 13 - 39 [facility] Comment on above: Performed By: #### 2 09738 #### [facility],[address] [place] [address] 39995 B/C RATIO 14 ratio Normal 0 - 30 [facility] Comment on above: Performed By: #### 2 14005 #### [facility],[address] [place] [address] 91443 Bilirubin [Mass/Vol] 0.4 mg/dL Normal 0.2 - 1.0 [facility] Comment on above: Performed By: #### 2 21366 #### [facility],[address] [place] [address] 26906 Calcium [Mass/Vol] 8.9 mg/dL Normal 8.5 - 10.1 [facility] Comment on above: Performed By: #### 2 17863 #### [facility],[address] [place] [address] 47038 Chloride [Moles/Vol] 108 mmol/L High 98 - 107 [facility] Comment on above: Performed By: #### 2 06705 #### [facility],[address] [place] [address] CMP with eGFR Normal [facility] Comment on above: Result Comment: COMP REHENSIVE METABOLIC PANEL Performed By: #### 2 06868 #### [facility],[address] [place] [address] CO2 [Moles/Vol] 28.6 mmol/L Normal 21.0 - 32.0 [facility] Comment on above: Performed By: #### 2 95993 #### [facility],[address] [place] [address] Creatinine [Mass/Vol] 0.78 mg/dL Normal 0.55 - 1.02 [facility] Comment on above: Performed By: #### 2 24379 #### [facility],[address] [place] [address] GFR/1.73 sq M.predicted among non-blacks MDRD (S/P/Bld) [Vol rate/Area] mL/min/{1.73_m2} Normal 60 - 999 [facility] Comment on above: Performed By: #### 2 19322 #### [facility],[address] [place] [address] Result Comment: ACCO RDING TO THE NATIONAL KIDNEY DISEASE EDUCATION PROGRAM(NKDE), A NORMAL eGFR IS A VALUE GREATER THAN OR EQUAL TO 60 ML/MIN/1.73 SQ METERS. CHRONIC KIDNEY DISEASE: <60mL/MIN/1.73 SQ METERS KIDNEY FAILURE: <15mL/MIN/1.73 SQ METERS THIS TEST SHOULD ONLY BE USED FOR PATIENTS 18 YEARS OF AGE AND OLDER. Globulin (S) [Mass/Vol] 3.4 g/dL Normal 1.5 - 3.8 [facility] Comment on above: Performed By: #### 2 64311 #### [facility],[address] [place] [address] Glucose [Mass/Vol] 104 mg/dL Normal 74 - 106 [facility] Comment on above: Performed By: #### 2 42689 #### [facility],[address] [place] [address] 85816 Potassium [Moles/Vol] 4.1 mmol/L Normal 3.5 - 5.1 [facility] Comment on above: Performed By: #### 2 19956 #### [facility],[address] [place] [address] 12095 Protein [Mass/Vol] 6.9 g/dL Normal 6.4 - 8.2 [facility] Comment on above: Performed By: #### 2 80867 #### [facility],[address] [place] [address] 41320 Sodium [Moles/Vol] 142 mmol/L Normal 136 - 145 [facility] Comment on above: Performed By: #### 2 47873 #### [facility],[address] [place] [address] 07132 Urea nitrogen [Mass/Vol] 11 mg/dL Normal 7 - 18 [facility] Comment on above: Performed By: #### 2 26573 #### [facility],[address] [place] [address] 31690 LIPID PROFILEon 04-27-2024 Cholesterol [Mass/Vol] 189 mg/dL Normal 0 - 240 [facility] Comment on above: Performed By: #### 2 15983 #### [facility],[address] [place] [address] 09569 Cholesterol in HDL [Mass/Vol] 49 mg/dL Normal 40 - 60 [facility] Comment on above: Performed By: #### 2 13154 #### [facility],[address] [place] [address] 67464 Cholesterol in LDL [Mass/Vol] 121 mg/dL Normal 0 - 129 [facility] Comment on above: Performed By: #### 2 05630 #### [facility],[address] [place] [address] 23764 Cholesterol.total/Chol esterol in HDL [Mass ratio] 3.9 {ratio} Normal 0.0 - 5.0 [facility] Comment on above: Performed By: #### 2 69276 #### [facility],[address] [place] [address] 13734 Lipid 1996 panel Normal [facility] Comment on above: Result Comment: LIPI D PROFILE Performed By: #### 2 83482 #### [facility],[address] [place] [address] 63379 Triglyceride [Mass/Vol] 95 mg/dL Normal 0 - 150 [facility] Comment on above: Performed By: #### 2 89357 #### [facility],[address] [place] [address] 70710 T4-FREE (FREE THYROXINE)on 06-28-2023 Free T4 [Mass/Vol] 0.87 ng/dL Normal 0.76 - 1.46 [facility] Comment on above: Result Comment: P otential of falsely elevated results when biotin concentrations are > 10 ng/mL. Performed By: #### 2 15904 #### [facility],[address] [place] [address] 57801 TSHon 04-27-2024 TSH Qn 1.20 m[IU]/L Normal 0.35 - 3.74 [facility] Comment on above: Performed By: #### 2 36665 #### [facility],[address] [place] [address] 63100 3D MAMM BILAT SCREENon 03-14 3D MAMM BILAT SCREEN [place] [address] Patient: ANNE MARIE ODOM Phone#: : 1970 Age: 53 Gender: F Pt. Type: Out Account: [id number] Location: [facility] Ordering: ARUN ANGELES Exam Date: 03/14/2024/14:56 Family Phys: Charge Code: [id number] Physician: Millard Order #: [id number] Dose#: PROCEDURE: BILATERAL SCREENING BREAST TOMOSYNTHESIS MAMMOGRAM WITH CAD COMPARISON: [facility], 3D BILAT SCREEN, 11/11/2021, 13:00. [facility], 3D BILAT SCREEN, 11/20/2022, 14:13. INDICATIONS: [...] Mancera MD on 03/14/2024 at 18:23 Normal [facility] Bacteria Ur Culton Bacteria identified Cx Nom (U) ORGANISM ID: 1 <10,000 CFU/ml Normal urogenital aroldo Normal [facility] Comment on above: Performed By: #### 6 30-4 #### [facility] CLIA [id number] [address] [place] [address] [place] CNOVon 11-15-2023 CNOV Office Visit (UCWSTR ) ANNE MARIE ODOM ([id number]) 1970 F Date Time Provider Department 11/15/23 11:00 AM IRAM URBANO UCWSTR During your visit today, we recorded the following information about you: Temperature Pulse Respiration Blood pressure 97.2 degrees 88/minute 16/minute 142/82 Weight 85.7 kg Iram Urbano PA-C 11/15/2023 11:23 AM Signed This note was created using [employer]. Subjective Anne Marie Odom is a 53 [...] work this up, she will go to [facility] ED to be seen. ER passport sent. - UA DIP, URINE (POC) - URINE CULTURE 2. Pleuritic pain - ICD9: 786.52, ICD10: R07.81 Iram Urbaon PA-C Allergies As of Date: 11/15/2023 (No Known Allergies) Date Reviewed: 11/15/2023 Reviewed by: Justina Daniel LPN - Fully Assessed Reason for Visit: Back Pain [12] Cmt: X 1 week Primary Visit Diagnosis:Acute right-sided thoracic back pain [M54.6] Other Visit Diagnosis:Pleuritic pain [R07.81] Order(s):UA DIP, URINE (POC) [7494101] Order #: [id number]. #:[id number] -LAB URINE CULTURE [SQURCUL] Order #: [id number]. #:[id number] Prescriptions as of 11/15/2023 - levothyroxine sodium (LEVOTHYROXINE ORAL) Take by mouth. Problem List As Of Date: 11/15/2023 (None) Encounter Status:Closed by IRAM URBANO on 11/15/23 Normal [facility] UA DIP, URINE (POC)on 2023 BILIRUBIN UA (POCT) Negative Negative [facility] CLARITY UA (POCT) Clear [facility] COLOR UA (POCT) Yellow [facility] GLUCOSE UA (POCT) Negative Negative mg/dL [facility] Hemoglobin Ql (U) Small Abnormal Negative [facility] Interpretation and review of laboratory results Abnormal [facility] KETONE UA (POCT) Negative Negative mg/dL [facility] LEUKOCYTES UA (POCT) Negative Negative [facility] NITRITE UA (POCT) Negative Negative [facility] PH UA (POCT) 6.0 4.5 - 8.0 [facility] Protein Ql (U) Negative Negative mg/dL [facility] SPECIFIC GRAVITY UA (POCT) <=1.005 Abnormal 1.005 - 1.030 [facility] UROBILINOGEN UA (POCT) 0.2 Sue l E.U./dL [facility] Location:[address], [place], [place], [address] [place] [address] POINT OF CARE [facility] VITAMIN D, 1,25 - DIHYDROXY [CCL]on 05-19-2023 Vit D,1,25 Dihydroxy 60.8 pg/mL Normal 19.9-79.3 [facility] Comment on above: Result Comment: [facility] [address] [place] [address] Ricardo Otto III, M.D. [id number] Performed By: #### 2 37461 #### [facility],[address] [place] [address] [facility] Cytology Reporton 2022 [facility] Cytology Report . Pathology Reports Accession: Collected Date/Time: Received Date/Time: Pathologist: [id number] 05/06/2023 11:15 EST 05/06/2023 18:00 EST [facility] Cytology Report SPECIMEN: Specimen Description: Liquid Prep w/ HPV Specimen: Cervical Screening or Diagnostic: Screening RELEVANT HISTORY: LMP: not given [id number] SPECIMEN ADEQUACY: SATISFACTORY FOR EVALUATION Endocervical/Transformation al [...] and evaluated with the assistance of the [employer] ThinPrep Test Imaging System. Electronically Signed by Pathology report verified by [facility] Screened by: [place] Electronically signed by Lupe RANDOLPH (ASCP) Sign-Out Date: 05/14/2023 14:39 Performing Lab: [facility], [address] [place] [address] Pathology Dept Disclaimer The Pap test is a screening test for cervical cancer. As evidenced by published data, it is subject to both inherent false negative and false positive results. Your patient's results should be interpreted in context with pertinent clinical history including gynecological examination. Normal [facility] [place] HPVon 05-14-2023 HPV Interp X Normal See Interp HPVN [facility] [place] Comment on above: Order Comment: Order placed by AP_HPV_ORDER rule from [id number] Registration error. Not a viro error Result [...] HPVN Performed By: #### H PV #### [address] [address] HPV Source X Normal [facility] [place] Comment on above: Order Comment: Order placed by AP_HPV_ORDER rule from [id number] Registration error. Not a viro error Performed By: #### H PV #### [address] [address] HPV Interp Normal See Interp HPVN [facility] [place] Comment on above: Order Comment: Order placed by AP_HPV_ORDER rule from [id number] Result Comment: High Risk HPV Typing: NEGATIVE [...] HPVN Performed By: #### H PV #### [place] [address] HPV Source Cervix Normal [facility] [place] Comment on above: Order Comment: Order placed by AP_HPV_ORDER rule from [id number] Performed By: #### H PV #### [address] [address] 1,25-dihydroxyvitamin D3 [Ma ss/Vol]on 05-13-2023 VIT D1,25 DIHYDROXY 60.8 pg/mL Normal 19.9-79.3 [facility] Comment on above: Order Comment: Speci men Type: BLOOD SPECIMEN Ordering Facility: [facility] Address: [address] [place] [address] Performed By: #### 1 649-3 #### [facility] CLIA [id number] [address] [place] [address] [place] CBC + DIFFon 05-13-2023 Baso # 0.10 x10EE3/UL Normal 0.00 - 0.10 [facility] Comment on above: Performed By: #### 2 19558 #### [facility],[address] [place] [address] 38355 Basophils/100 WBC (Bld) 1.1 % Normal 0.0 - 2.0 [facility] Comment on above: Performed By: #### 2 18456 #### [facility],[address] [place] [address] CBC + DIFF Normal [facility] Comment on above: Result Comment: CBC- COMPLETE BLOOD COUNT Performed By: #### 2 05070 #### [facility],[address] [place] [address] EO # 0.10 x10EE3/UL Normal 0.00 - 0.50 [facility] Comment on above: Performed By: #### 2 80964 #### [facility],[address] [place] [address] 35495 Eosinophils/100 WBC (Bld) 1.9 % Normal 0.0 - 7.0 [facility] Comment on above: Performed By: #### 2 11048 #### [facility],[address] [place], [place] [address] Erythrocyte distribution width (RBC) [Ratio] 13.3 % Normal 12.0 - 15.6 [facility] Comment on above: Performed By: #### 2 06687 #### [facility],[address] [place] [address] Hematocrit (Bld) [Volume fraction] 41.1 % Normal 34.0 - 46.0 [facility] Comment on above: Performed By: #### 2 60388 #### [facility],[address] [place] [address] 18890 Hemoglobin (Bld) [Mass/Vol] 13.7 g/dL Normal 12.0 - 16.0 [facility] Comment on above: Performed By: #### 2 71485 #### [facility],[address] [place] [address] Lymph # 1.90 x10EE3/UL Normal 0.80 - 2.80 [facility] Comment on above: Performed By: #### 2 44333 #### [facility],[address] [place] [address] Lymphocytes/100 WBC (Bld) 27.4 % Normal 20.0 - 45.0 [facility] Comment on above: Performed By: #### 2 60857 #### [facility],[address] [place] [address] MANUAL DIFF N/A Normal [facility] Comment on above: Performed By: #### 2 23613 #### [facility],[address] [place] [address] MCH (RBC) [Entitic mass] 30 pg Normal 27 - 33 [facility] Comment on above: Performed By: #### 2 99615 #### [facility],[address] [place] [address] MCHC 33 X10 3 Normal 32 - 36 [facility] Comment on above: Performed By: #### 2 93567 #### [facility],[address] [place] [address] MCV (RBC) [Entitic vol] 90 fL Normal 80 - 99 [facility] Comment on above: Performed By: #### 2 28815 #### [facility],[address] [place] [address] [place] # 0.50 x10EE3/UL Normal 0.20 - 1.00 [facility] Comment on above: Performed By: #### 2 17210 #### [facility],[address] [place] [address] MONOS % 6.6 % Normal 0.0 - 10.0 [facility] Comment on above: Performed By: #### 2 57753 #### [facility],[address] [place] [address] Morphology Néstor (Bld) [Interp] N/A Normal [facility] Comment on above: Result Comment: {CD] Performed By: #### 2 57966 #### [facility],[address] [place] [address] Neut # 4.50 x10EE3/UL Normal 1.50 - 7.10 [facility] Comment on above: Performed By: #### 2 80780 #### [place] [address] Neutrophils/100 WBC (Bld) 63.0 % Normal 46.0 - 76.0 [facility] Comment on above: Performed By: #### 2 43549 #### [place] [address] PLATELET 276 x10EE3/UL Normal 150 - 450 [facility] Comment on above: Performed By: #### 2 34882 #### [place] [address] Platelet mean volume (Bld) [Entitic vol] 9.8 fL Normal 6.6 - 10.5 [facility] Comment on above: Result Comment: AUTO MATED DIFFERENTIAL Performed By: #### 2 44340 #### [place] [address] RBC 4.56 x 10EE6/UL Normal 4.10 - 5.30 [facility] Comment on above: Performed By: #### 2 91241 #### [facility],[address] [place] [address] WBC 7.1 x 10EE3/UL Normal 4.5 - 10.8 [facility] Comment on above: Performed By: #### 2 77973 #### [address],[place] [address] CMP with eGFRon 05-13-2023 AGE 53 years Normal [facility] Comment on above: Performed By: #### 2 33086 #### [facility],[address] [place] [address] 51127 Albumin [Mass/Vol] 3.1 g/dL Low 3.4 - 5.0 [facility] Comment on above: Performed By: #### 2 02897 #### [facility],[address] [place], [place] [address] Albumin/Globulin [Mass ratio] 0.9 {ratio} Normal 0.9 - 1.6 [facility] Comment on above: Performed By: #### 2 02579 #### [facility],[address] [place] [address] 88340 ALK PHOS 64 U/L Normal 46 - 116 [facility] Comment on above: Performed By: #### 2 39640 #### [facility],[address] [place] [address] 49338 ALT [Catalytic activity/Vol] 25 U/L Normal 14 - 59 [facility] Comment on above: Performed By: #### 2 92901 #### [facility],[address] [place] [address] 78416 Anion gap [Moles/Vol] 12 mmol/L Normal 10 - 20 [facility] Comment on above: Performed By: #### 2 82087 #### [facility],[address] [place] [address] 71000 AST [Catalytic activity/Vol] 19 U/L Normal 13 - 39 [facility] Comment on above: Performed By: #### 2 22328 #### [facility],[address] [place] [address] 66242 B/C RATIO 13 ratio Normal 0 - 30 [facility] Comment on above: Performed By: #### 2 80170 #### [facility],[address] [place] [address] 31966 Bilirubin [Mass/Vol] 0.5 mg/dL Normal 0.2 - 1.0 [facility] Comment on above: Performed By: #### 2 64721 #### [facility],[address] [place] [address] 01203 Calcium [Mass/Vol] 8.8 mg/dL Normal 8.5 - 10.1 [facility] Comment on above: Performed By: #### 2 93761 #### [facility],[address] [place] [address] 83025 Chloride [Moles/Vol] 104 mmol/L Normal 98 - 107 [facility] Comment on above: Performed By: #### 2 83572 #### [facility],[address] [place], [place] [address] CMP with eGFR Normal [facility] Comment on above: Result Comment: COMP REHENSIVE METABOLIC PANEL Performed By: #### 2 50904 #### [facility],[address] [place] [address] 96529 CO2 [Moles/Vol] 25.0 mmol/L Normal 21.0 - 32.0 [facility] Comment on above: Performed By: #### 2 54775 #### [facility],[address] [place] [address] 13310 Creatinine [Mass/Vol] 0.72 mg/dL Normal 0.55 - 1.02 [facility] Comment on above: Performed By: #### 2 66733 #### [facility],[address] [place] [address] 63462 GFR/1.73 sq M.predicted among non-blacks MDRD (S/P/Bld) [Vol rate/Area] mL/min/{1.73_m2} Normal 60 - 999 [facility] Comment on above: Performed By: #### 2 94311 #### [facility] [facility],[address] [place] [address] Result Comment: ACCO RDING TO THE NATIONAL KIDNEY DISEASE EDUCATION PROGRAM(NKDE), A NORMAL eGFR IS A VALUE GREATER THAN OR EQUAL TO 60 ML/MIN/1.73 SQ METERS. CHRONIC KIDNEY DISEASE: <60mL/MIN/1.73 SQ METERS KIDNEY FAILURE: <15mL/MIN/1.73 SQ METERS THIS TEST SHOULD ONLY BE USED FOR PATIENTS 18 YEARS OF AGE AND OLDER. Globulin (S) [Mass/Vol] 3.6 g/dL Normal 1.5 - 3.8 [facility] Comment on above: Performed By: #### 2 73944 #### [facility],[address] [place] [address] 70906 Glucose [Mass/Vol] 89 mg/dL Normal 74 - 106 [facility] Comment on above: Performed By: #### 2 52610 #### [facility],[address] [place] [address] 67159 Potassium [Moles/Vol] 4.0 mmol/L Normal 3.5 - 5.1 [facility] Comment on above: Performed By: #### 2 82645 #### [facility],[address] [place] [address] 91885 Protein [Mass/Vol] 6.7 g/dL Normal 6.4 - 8.2 [facility] Comment on above: Performed By: #### 2 95136 #### [facility],[address] [place] [address] 90631 Sodium [Moles/Vol] 137 mmol/L Normal 136 - 145 [facility] Comment on above: Performed By: #### 2 56773 #### [facility],[address] [place] [address] 47415 Urea nitrogen [Mass/Vol] 9 mg/dL Normal 7 - 18 [facility] Comment on above: Performed By: #### 2 17402 #### [facility],[address] [place] [address] 58591 LIPID PROFILEon 05-13-2023 Cholesterol [Mass/Vol] 177 mg/dL Normal 0 - 240 [facility] Comment on above: Performed By: #### 2 70237 #### [facility],[address] [place] [address] 48015 Cholesterol in HDL [Mass/Vol] 53 mg/dL Normal 40 - 60 [facility] Comment on above: Performed By: #### 2 62166 #### [facility],[address] [place] [address] 67166 Cholesterol in LDL [Mass/Vol] 96 mg/dL Normal 0 - 129 [facility] Comment on above: Performed By: #### 2 29302 #### [facility],[address] [place] [address] 12666 Cholesterol.total/Chol esterol in HDL [Mass ratio] 3.3 {ratio} Normal 0.0 - 5.0 [facility] Comment on above: Performed By: #### 2 82412 #### [facility],[address] [place] [address] 33131 Lipid 1996 panel Normal [facility] Comment on above: Result Comment: LIPI D PROFILE Performed By: #### 2 78918 #### [facility],[address] [place] [address] 34826 Triglyceride [Mass/Vol] 140 mg/dL Normal 0 - 150 [facility] Comment on above: Performed By: #### 2 53226 #### [facility],[address] [place] [address] 11319 T4-FREE (FREE THYROXINE)on 07-14-2022 Free T4 [Mass/Vol] 0.97 ng/dL Normal 0.76 - 1.46 [facility] Comment on above: Result Comment: P otential of falsely elevated results when biotin concentrations are > 10 ng/mL. Performed By: #### 2 03861 #### [facility],[address] [place] [address] 98080 TSHon 05-13-2023 TSH Qn 2.39 m[IU]/L Normal 0.35 - 3.74 [facility] Comment on above: Performed By: #### 2 51448 #### [facility],[address] [facility] [address] MRI HUMERUS W/O CONTRAST LEF Ton 11-20-2022 [...] 11/20/2022 9:41:08 AM Ordering Provider: WENDI Berry [facility] ([place]) Abdomen Single Viewon 2022 Abdomen Single View [facility] [address] [place] [address] 18446 Abdomen Single View MR#: [id number] Acct: [id number] Name: ANNE MARIE ODOM Rep #: [id number] : 1970 F 52 From: Bright Da Silva MD PCP: Care Physician,No Primary Status: REG CLI Study: Abdomen Single View Date of Exam: 11/05/22 Exam# [id number] Ordering Dr: Macarena Driscoll MD INDICATION: URETERAL [...] Macarena Driscoll MD; No Primary Care Physician Insight Leader: Signed Normal [facility] Calculi, Urinary w / Photoon 11-05-2022 SOURCE Normal [facility] Comment on above: Order Comment: Comme [...] Comment: Physician questions regarding Calculi Analysis contact [facility] at: [phone]. Please note: Calculi report will follow via computer, mail or biotechnician delivery. Disclaimer: This test was developed and its performance characteristics determined by [facility]. It has not been cleared or approved by the Food and Drug Administration. TESTING PERFORMED AT [facility]. ORIGINAL REPORT ON FILE IN LAB CONTAINS ADDITIONAL TEST SITE INFORMATION. Performed By: #### L 3650.0100 #### [facility] [address] [facility] [place], [address] Color of specimen determinat ionOrdered By: Dr. Driscoll on 10-30-2022 Color (Unsp spec) Not Reportable [facility] Discharge Instructionon 10-16 Discharge Instruction [facility] Medical Records Department [address] [place] [address] Instructions for Home/Discharge Instructions 10/30/22 0902 MR#: [id number] Acct: [id number] Name: ANNE MARIE ODOM Rep #: [id number] : 1970 52 From: Macarena Driscoll MD PCP: Care Physician,No Primary [place] [facility] [place] Instructions Diet Discharge Diet: No restrictions [...] Pain) 7 Days Qty: 20 0RF Continued xphjmshstlwj-Ir-hwtm-minera ls 18-0.4 mg Tablet 1 tab PO [...] CC: No Primary Care Physician Signed Normal [facility] - Chemistry and C hemistry - challengeOrdered By: Dr. Beasley on 10-30-2022 HCG ( test) Ql (U) Negative [facility] Comment on above: Very dilute urine sp ecimens, as indicated by a low specificgravity, may not contain billing customer service representative levels of hCG. If is still suspected, a first morning urinespecimen should be collected 48 hours later and tested. Measurement of weight of sto neOrdered By: Dr. Driscoll on 10-30-2022 Weight (Stone) Not Reportable [facility] Operative Reporton 3 Operative Report [facility] Medical Records Department [address] [place] [address] Operative Report 10/30/22 0905 MR#: [id number] Acct: [id number] Name: ANNE MARIE ODOM Rep #: [id number] : 1970 52 From: Macarena Driscoll MD PCP: Care Physician,No Primary Status:[facility] Location: [place] [address] Report of Operation Date of Procedure: 10/30/22 [...] wire were used to place a 4.5 Latvian by 24 cm JJ stent with good [...] Cosigner Signature (if applicable): CC: Dr. Macarena rDiscoll MD; No Primary Care Physician Signed [facility] Origin of StoneOrdered By: Vero Driscoll on 10-30-2022 Origin Nom (Stone) See comment [facility] Comment on above: TEST RESULT LIMITSSt one [...] separate coverComment: Physician questions regarding Calculi [facility] at: [phone].Please note: Calculi report will follow via computer, mail or courierdelivery.Disclaimer: This test was developed and its performance characteristicsdetermined by [employer]. It has not been cleared or approvedby the Food and Drug Administration. TESTING PERFORMED AT [facility]. ORIGINAL REPORT ON FILE IN LAB CONTAINS ADDITIONAL TEST SITE INFORMATION. ,Urineon 10-30-2022 Beta HCG ( test) Ql (U) Negative Normal [facility] Comment on above: Result Comment: Very dilute urine specimens, as indicated by a low specific gravity, may not contain billing customer service representative levels of hCG. If is still suspected, a first morning urine specimen should be collected 48 hours later and tested. Performed By: #### L 400.7600 #### [facility] [address] [place], [address] Size of stoneOrdered By: Dr. Driscoll on 10-30-2022 Size (Stone) [Entitic vol] Not Reportable [facility] Discharge Instructionon 09-15 Discharge Instruction [facility] Medical Records Department [address] [place] [address] Instructions for Home/Discharge Instructions 10/03/22 1127 MR#: [id number] Acct: [id number] Name: ANNE MARIE ODOM Rep #: [id number] : 1970 52 From: Macarena Driscoll MD [...] Spasms) 7 Days Qty: 30 0RF Continued royszngdmyoa-Eh-ucqw-minera ls 18-0.4 mg Tablet 1 tab PO DAILY biotin 1 mg Capsule 1 mg PO DAILY atorvastatin 20 mg tablet 20 mg PO DAILY levothyroxine 100 mcg Tablet 100 mcg PO DAILY Referrals / Follow Up: NOT,DEFINED [Non-Staff] - Disposition Disposition (needs filled in before D/C Order can be placed): Home, Self Care 10/03/22 1312 Macarena Driscoll MD CC: Signed Normal [facility] Operative Reporton Operative Report [facility] Medical Records Department [address] [place] [address] Operative Report 10/03/22 1130 MR#: [id number] Acct: [id number] Name: ANNE MARIE ODOM Rep #: [id number] : 1970 52 From: Macarena Driscoll MD PCP: Status:ADM MARY Location: [place] [address] Report of Operation Date of Procedure: 10/03/22 [...] then used for placement of a 6 Latvian 24 cm JJ stent with good positioning [...] complications during this procedure. Grafts/Implants Used: 6 Latvian x 24 cm JJ stent Complications None Admit VTE Documentation VTE Present on Admission: Yes VTE Mechan Device Prophylaxis: SCD's VTE Pharm Prophylaxis ordered?: No Reason prophylaxis not ordered:: Treatment Not Indicated 10/03/22 1311 Cosigner Signature (if applicable): CC: Dr. Macarena Driscoll MD Signed Normal [facility] ,Serum,hCG Quali.on 10-03-2022 HCG, SERUM QUAL Negative Normal [facility] Comment on above: Order Comment: if fe male and of childbearing age (8-55 years old) Performed By: #### L 700.6800 #### [facility] [address] [place], [place], [address] Surgery Specimen Level [place] 10-03-2022 Surgery Specimen Level IV Patient Age/Sex Location Account Attending Physician ANNE MARIE ODOM 52/F MS3 [id number] Dr. Mcaarena Driscoll MD Specimen: [id number] Received: 10/03/22 Status: JENNIFER Tinsley Num: [id number] Spec Type: BLADDER BX Subm Dr: Dr. [...] one cassette. / SJ:shan 10/06/2022 TC:3 CPT: 37363 Patient Age/Sex Location Account Attending Physician ANNE MARIE ODOM 52/F MS3 [id number] Dr. Macarena Driscoll MD Signed (signature on file) Dr. Andrea Gardner, 10/07/22 1312 Normal [facility] Comment on above: Performed By: #### P SSII #### [facility] [address] [facility] [place], [address] Thyroid Stim Hormone (TSH)on 10-03-2022 TSH 2.12 uIU/mL Normal 0.358-3.74 [facility] Comment on above: Order Comment: Comme nts: use ed labs Performed By: #### P SSII #### [facility] [place], [address] Urinalysis, Completeon 10-03 RBC 0-5 SEEN Normal 0-5 [facility] Comment on above: Order Comment: CLEAN CATCH Performed By: #### P SSII #### [facility] [address] [facility] [place], [address] WBC 0-5 SEEN Normal 0-5 [facility] Comment on above: Order Comment: CLEAN CATCH Performed By: #### P SSII #### [facility] [address] [facility] [place], [address] BACTERIA 0 SEEN Normal None Seen [facility] Comment on above: Order Comment: CLEAN CATCH Performed By: #### P SSII #### [facility] [place], [address] EPI,SQUAMOUS 0 SEEN Normal 5-10 [facility] Comment on above: Order Comment: CLEAN CATCH Performed By: #### P SSII #### [facility] [address] [place], [address] Mucus Ql (Urine sed) 0 SEEN Normal [facility] Comment on above: Order Comment: CLEAN CATCH Performed By: #### P SSII #### [facility] [address] [place], [address] Absolute lymphocyte countOrd ered By: Dr. Meza on 10-02-2022 Lymphocytes Auto (Unsp spec) [#/Vol] 0.88 10*3/uL 0.83-4.51 [facility] Basic Metabolic Profile (BMP )on 10-02-2022 BUN/CRE 15.4 RATIO Normal 10-20 [facility] Comment on above: Performed By: #### L 500.2500, L100.0100 #### [facility] [address] [place], [address] CA,Total 8.7 mg/dL Normal 8.5-10.1 [facility] Comment on above: Performed By: #### L 500.2500, L100.0100 #### [facility] [address] [place], [address] Chloride [Moles/Vol] 109 mmol/L High 98-107 [facility] Comment on above: Performed By: #### L 500.2500, L100.0100 #### [facility] [address] [place], [address] CO2 [Moles/Vol] 23.0 mmol/L Normal 21.0-32.0 [facility] Comment on above: Performed By: #### L 500.2500, L100.0100 #### [facility] [address] [place], [address] Creatinine [Mass/Vol] 0.78 mg/dL Normal 0.55-1.02 [facility] Comment on above: Result Comment: The validity of the calculated GFR GFRAA in patients over 70 years has not been determined. Clinical correlation is essential. Performed By: #### L 500.2500, L100.0100 #### [facility] [address] [place], [address] ECRCL 75.92 ml/min Normal [facility] Comment on above: Performed By: #### L 500.2500, L100.0100 #### [facility] [address] [place], [address] EST GFR - AA 99 mL/min Normal >60 [facility] Comment on above: Result Comment: Afri can Haitian GFR Calc Performed By: #### L 500.2500, L100.0100 #### [facility] [address] [place], [address] GAP 7 Normal 5-15 [facility] Comment on above: Performed By: #### L 500.2500, L100.0100 #### [facility] [address] [place], [address] GFR/1.73 sq M.predicted among non-blacks MDRD (S/P/Bld) [Vol rate/Area] 82 mL/min/{1.73_m2} Normal >60 [facility] Comment on above: Result Comment: Non- GFR Calc Performed By: #### L 500.2500, L100.0100 #### [facility] [address] [place], [address] Glucose [Mass/Vol] 121 mg/dL High 74-106 [facility] Comment on above: Result Comment: Fast ing Glucose result from 100 to 125 mg/dL suggests IMPAIRED HOMEOSTASIS per A.D.A. criteria. Performed By: #### L 500.2500, L100.0100 #### [facility] [address] [place], [address] Potassium [Moles/Vol] 3.9 mmol/L Normal 3.5-5.1 [facility] Comment on above: Performed By: #### L 500.2500, L100.0100 #### [facility] [address] [place], [address] Sodium [Moles/Vol] 139 mmol/L Normal 136-145 [facility] Comment on above: Performed By: #### L 500.2500, L100.0100 #### [facility] [address] [place], [address] Urea nitrogen [Mass/Vol] 12 mg/dL Normal 7-18 [facility] Comment on above: Performed By: #### L 500.2500, L100.0100 #### [facility] [address] [place], [address] Basophil percentageOrdered B y: Dr. Meza on 10-02-2022 Basophil percentage 0-5 SEEN /hpf 0-5 [facility] Basophils/100 WBC (Bld) 0.4 % 0-1 [facility] Chloride [Moles/Vol] 109 mmol/L 98-107 [facility] Eosinophils/100 WBC (Bld) 0.0 % 0-5 [facility] Glucose [Mass/Vol] 121 mg/dL 74-106 [facility] Comment on above: Fasting Glucose resu lt from 100 to 125 mg/dL suggests IMPAIRED HOMEOSTASIS per A.D.A. criteria. Neutrophils (Bld) [#/Vol] 14.8 10*3/uL 2.0-7.7 [facility] Neutrophils/100 WBC (Bld) 90.8 % 47-70 [facility] Potassium [Moles/Vol] 3.9 mmol/L 3.5-5.1 [facility] Sodium [Moles/Vol] 139 mmol/L 136-145 [facility] WBC (Bld) [#/Vol] 16.3 10*3/uL 4.4-11.0 [facility] Beta hCG serum qualOrdered B y: ED PROVIDER on 10-02-2022 Beta HCG ( test) Ql Negative [facility] Bilirubin Test strip Ql (U)O rdered By: Dr. Meza on 10-02-2022 Bilirubin Ql (U) Negative Negative [facility] Blood erythrocytes count (nu mber/volume)Ordered By: Dr. Meza on 10-02-2022 RBC (Bld) [#/Vol] 4.72 10*6/uL 4.2-5.4 [facility] Blood hemoglobin measurement (mass/volume)Ordered By: Dr. Meza on 10-02-2022 Hemoglobin (Bld) [Mass/Vol] 14.0 g/dL 12.0-15.0 [facility] Blood lymphocytes/100 leukoc ytesOrdered By: Dr. Meza on 10-02-2022 Lymphocytes/100 WBC (Bld) 5.4 % 19-41 [facility] Blood monocytes/100 leukocyt esOrdered By: Dr. Meza on 10-02-2022 Monocytes/100 WBC (Bld) 2.7 % 0-10 [facility] Blood platelet mean volumeOr dered By: Dr. Meaz on 10-02-2022 Platelet mean volume (Bld) [Entitic vol] 10.9 fL 6.2-12.0 [facility] CBC W/Diff, Automatedon 09-15 Absolute Lymph 0.88 X10 3/uL Normal 0.83-4.51 [facility] Comment on above: Performed By: #### L 500.2500, L100.0100 #### [facility] [address] [facility] [place], [address] Absolute Neut 14.8 X10 3/uL High 2.0-7.7 [facility] Comment on above: Performed By: #### L 500.2500, L100.0100 #### [facility] [address] [facility] [place], [address] Basophils/100 WBC (Bld) 0.4 % Normal 0-1 [facility] Comment on above: Performed By: #### L 500.2500, L100.0100 #### [facility] [address] [place], [address] Eosinophils/100 WBC (Bld) 0.0 % Normal 0-5 [facility] Comment on above: Performed By: #### L 500.2500, L100.0100 #### [facility] [address] [place], [address] Erythrocyte distribution width (RBC) [Ratio] 12.2 % Normal 11.6-14.6 [facility] Comment on above: Performed By: #### L 500.2500, L100.0100 #### [facility] [address] [place], [address] Hematocrit (Bld) [Volume fraction] 43.1 % Normal 37-47 [facility] Comment on above: Performed By: #### L 500.2500, L100.0100 #### [facility] [address] [place], [address] Hemoglobin (Bld) [Mass/Vol] 14.0 g/dL Normal 12.0-15.0 [facility] Comment on above: Performed By: #### L 500.2500, L100.0100 #### [facility] [address] [place], [address] IG% 0.700 Normal 0.0-0.9 [facility] Comment on above: Result Comment: IG% - Immature Granulocytes (promyelocytes, myelocytes and metamyelocytes) > 1% indicates that a LEFT SHIFT is Present. Performed By: #### L 500.2500, L100.0100 #### [facility] [address] [place], [address] Lymphocytes/100 WBC (Bld) 5.4 % Low 19-41 [facility] Comment on above: Performed By: #### L 500.2500, L100.0100 #### [facility] [address] [place], [address] MCH (RBC) [Entitic mass] 29.7 pg Normal 27.0-32.0 [facility] Comment on above: Performed By: #### L 500.2500, L100.0100 #### [facility] [address] [place], [address] MCHC (RBC) [Mass/Vol] 32.5 g/dL Normal 32-36 [facility] Comment on above: Performed By: #### L 500.2500, L100.0100 #### [facility] [address] [place], [address] MCV (RBC) [Entitic vol] 91.3 fL Normal 81-99 [facility] Comment on above: Performed By: #### L 500.2500, L100.0100 #### [facility] [address] [place], [address] Monocytes/100 WBC (Bld) 2.7 % Normal 0-10 [facility] Comment on above: Performed By: #### L 500.2500, L100.0100 #### [facility] [address] [place], [address] Neutrophils/100 WBC (Bld) 90.8 % High 47-70 [facility] Comment on above: Performed By: #### L 500.2500, L100.0100 #### [facility] [address] [place], [address] Nucleated RBC (Bld) [#/Vol] 0 10*3/uL Normal 0-5 [facility] Comment on above: Performed By: #### L 500.2500, L100.0100 #### [facility] [address] [place], [address] Platelet mean volume (Bld) [Entitic vol] 10.9 fL Normal 6.2-12.0 [facility] Comment on above: Performed By: #### L 500.2500, L100.0100 #### [facility] [address], [address] Platelets (Bld) [#/Vol] 310 10*3/uL Normal 150-450 [facility] Comment on above: Performed By: #### L 500.2500, L100.0100 #### [facility] [address] [place], [address] RBC (Bld) [#/Vol] 4.72 10*6/uL Normal 4.2-5.4 [facility] Comment on above: Performed By: #### L 500.2500, L100.0100 #### [facility] [address] [place], [address] RDW SD 40.7 fl Normal 35.1-43.9 [facility] Comment on above: Performed By: #### L 500.2500, L100.0100 #### [facility] [address] [place], [address] WBC (Bld) [#/Vol] 16.3 10*3/uL High 4.4-11.0 [facility] Comment on above: Performed By: #### L 500.2500, L100.0100 #### [facility] [address] [place] [place], [address] Determination of erythrocyte mean corpuscular volume (MCV)Ordered By: Dr. Meza on 10-02-2022 MCV (RBC) [Entitic vol] 91.3 fL 81-99 [facility] Emergency Department Summary on 10-02-2022 Emergency Department Summary [facility] Medical Records Department [address] [place] [address] Emergency Department Summary 10/02/22 MR#: [id number] Acct: [id number] Name: ANNE MARIE ODOM Rep #: [id number] : 1970 52 From: Prashanth Meza DO [...] PO DAILY 12/19/21 [History Last Taken Unknown] bjdsikbxpqkq-Yd-yssy-minera ls 18 mg-0.4 mg tablet 1 tab [...] Ox 100 Oxygen Delivery Method Room Air [facility] MDM Narrative Medical decision making [...] Consults: Urology (more content not included)... Normal [facility] Hematocrit Auto (Bld) [Volum e fraction]Ordered By: Dr. Meza on 10-02-2022 Hematocrit (Bld) [Volume fraction] 43.1 % 37-47 [facility] Ketones Test strip Ql (U)Ord ered By: Dr. Meza on 10-02-2022 Ketones Ql (U) 150 mg/dl Negative [facility] Comment on above: CRITICAL VALUE VERIF IED. CALLED TO SUSHMA BELTRAN RN ER10/02/222238 Elfego Mayo.RESULTS READ BACK BY SAME . CRITICAL VALUE *H Laboratory - Chemistry and C hemistry - challengeOrdered By: Dr. Meza on 10-02-2022 CO2 [Moles/Vol] 23.0 mmol/L 21.0-32.0 [facility] Urea nitrogen/Creatinine [Mass ratio] 15.4 mg/mg 10-20 [facility] - Hematology and Cell countsOrdered By: Dr. Meza on 10-02-2022 Erythrocyte distribution width (RBC) [Entitic vol] 40.7 fL 35.1-43.9 [facility] Erythrocyte distribution width (RBC) [Ratio] 12.2 % 11.6-14.6 [facility] Immature granulocytes/100 WBC (Bld) 0.700 % 0.0-0.9 [facility] Comment on above: IG% - Immature Granu locytes (promyelocytes, myelocytes and metamyelocytes) > 1% indicates that a LEFT SHIFT is Present. MCH (RBC) [Entitic mass] 29.7 pg 27.0-32.0 [facility] Nucleated RBC/100 WBC (Bld) [Ratio] 0 % 0-5 [facility] MCHC Auto (RBC) [Mass/Vol]Or dered By: Dr. Meza on 10-02-2022 MCHC (RBC) [Mass/Vol] 32.5 g/dL 32-36 [facility] Mucus LM Ql (Urine sed)Order ed By: Dr. Meza on 10-02-2022 Mucus Ql (Urine sed) 0 SEEN /hpf [facility] Nitrite Test strip Ql (U)Ord ered By: Dr. Meza on 10-02-2022 Nitrite Ql (U) Negative Negative [facility] No Panel InformationOrdered By: Dr. Meza on 10-02-2022 Estimated Creatinine Clearance Calc 75.92 ml/min [facility] Estimated GFR (MDRD) Amer 99 mL/min >60 [facility] Comment on above: GFR Calc Estimated GFR (MDRD) Non-Af Amer 82 mL/min >60 [facility] Comment on above: Non- GFR Calc No Panel InformationOrdered By: Dr. Smiley on 10-02-2022 Thyroid Stimulating Hormone (TSH) 2.12 uIU/mL 0.358-3.74 [facility] Platelets bldOrdered By: Dr. Meza on 10-02-2022 Platelets (Bld) [#/Vol] 310 10*3/uL 150-450 [facility] Protein Test strip Ql (U)Ord ered By: Dr. Meza on 10-02-2022 Protein Ql (U) 15 mg/dl Negative [facility] Serum or plasma calcium jeff urement (mass/volume)Ordered By: Dr. Meza on 10-02-2022 Calcium [Mass/Vol] 8.7 mg/dL 8.5-10.1 [facility] Serum or plasma creatinine m easurement (mass/volume)Ordered By: Dr. Meza on 10-02-2022 Creatinine [Mass/Vol] 0.78 mg/dL 0.55-1.02 [facility] Comment on above: The validity of the calculated GFR & GFRAA in patients over 70 years has not been determined. Clinical correlation is essential. Serum or plasma urea nitroge n measurement (mass/volume)Ordered By: Dr. Meza on 10-02-2022 Urea nitrogen [Mass/Vol] 12 mg/dL 12-02 [facility] Squamous epithelial cells de tection in urine sediment by light microscopyOrdered By: Dr. Meza on 10-02-2022 Epithelial cells.squamous LM Ql (Urine sed) 0 SEEN /hpf 09-24 [facility] Thin prep Papanicolaou smear with manual screeningOrdered By: Dr. Meza on 10-02-2022 Thin prep Papanicolaou smear with manual screening 09-29 [facility] Urinalysis, Completeon 10-02 EPI,SQUAMOUS 0-5 SEEN Normal 09-24 [facility] Comment on above: Order Comment: CLEAN CATCH Performed By: #### L 400.0001 #### [facility] [place], [address] RBC 0-5 SEEN Normal 0-5 [facility] Comment on above: Order Comment: CLEAN CATCH Performed By: #### L 400.0001 #### [facility] [address] [place], [address] BACTERIA 0 SEEN Normal None Seen [facility] Comment on above: Order Comment: CLEAN CATCH Performed By: #### L 400.0001 #### [facility] [address] [place], [address] Mucus Ql (Urine sed) 0 SEEN Normal [facility] Comment on above: Order Comment: CLEAN CATCH Performed By: #### L 400.0001 #### [facility] [address] [place], [address] WBC 0 SEEN Normal 0-5 [facility] Comment on above: Order Comment: CLEAN CATCH Performed By: #### L 400.0001 #### [facility] [address] [place], [address] Urine blood detectionOrdered By: Dr. Meza on 10-02-2022 RBC Ql (U) 10 /ul Negative [facility] RBC Ql (U) 0-5 SEEN /hpf 0-5 [facility] Urine clarityOrdered By: Dr. Meza on 10-02-2022 Clarity (U) Sl. Cloudy Clear [facility] Urine color determinationOrd ered By: Dr. Meza on 10-02-2022 Color (U) Yellow Yellow [facility] Urine glucose detectionOrder ed By: Dr. Meza on 10-02-2022 Glucose Ql (U) 50 mg/dl Normal [facility] Urine leukocyte esterase det ection by dipstickOrdered By: Dr. Meza on 10-02-2022 Leukocyte esterase Test strip Ql (U) Negative Negative [facility] Urine pHOrdered By: Dr. Mariaelena rodriguez on 10-02-2022 pH (U) 6.5 [pH] 5.0 - 8.0 [facility] Urine sediment bacteria coun t by microscopy (number/high power field)Ordered By: Dr. Meza on 10-02-2022 Bacteria LM.HPF (Urine sed) [#/Area] 0 /[HPF] None Seen [facility] Urine specific gravity measu rementOrdered By: Dr. Meza on 10-02-2022 Specific gravity (U) [Rel density] 1.015 1.002-1.03 0 [facility] Urobilinogen Auto test strip Ql (U)Ordered By: Dr. Meza on 10-02-2022 Urobilinogen Ql (U) Normal mg/dl Normal [facility] Gastroenterology Visit Repor ton 01-06-2022 Gastroenterology Visit Report [facility] Gastroenterology [address] [place] [address] OFFICE VISIT Date of Service: 01/06/22 MR#: [id number] Acct: [id number] Name: ANNE MARIE ODOM Rep #: [id number] : 1970 Provider: Conrad Lyman DO Age/Sex: 51/F Location: [facility] Status: Signed Intake Vital Signs 12/23/21 06:18 Height 5 ft 6 in Intake Visit Reasons: 2 WK F/U POST SCOPE Allergies No Known Allergies Allergy (Verified 12/23/21 06:16) [facility] Medical History (Updated 01/06/22 @ 16:42 by [...] Appearance: average body habitus and well nourished [facility] Head: normal to inspection Ears: hearing grossly [...] (2) Famil (more content not included)... Normal [facility] Colonoscopy Reporton 022 Colonoscopy Report [facility] Medical Records Department [address] [place] [address] Colonoscopy Report MR#: [id number] Acct: [id number] Name: ANNE MARIE ODOM Rep #: [id number] : 1970 51 From: Conrad Lyman DO PCP: Dr. Dot Rabago DO Status:[facility] Patient Name: Anne Marie Odmo Procedure Date: 12/23/2021 6:45 AM Date of [...] present medications. Procedure Code(s): --- Professional --- 04633, Colonoscopy, flexible; with removal of tumor(s), polyp(s), or other lesion(s) by snare technique CPT copyright 2017 [employer]. All rights reserved. The codes documented in this report are preliminary and upon non profit financial controller review may be revised to meet current [...] Lyman DO Date Dictated: 12/23/2145 Date Transcribed: Insight Leader: ANA Signed Normal [facility] EGD Reporton 12-23-2021 EGD Report [facility] Medical Records Department [address] [place] [address] EGD Report MR#: [id number] Acct: [id number] Name: ANNE MARIE ODOM Rep #: [id number] : 1970 51 From: Conrad Lyman DO PCP: Dr. Dot Rabago DO Status:[facility] Patient Name: Anne Marie Odom Procedure Date: [...] pathology results. Procedure Code(s): --- Professional --- 05411, Esophagogastroduodenoscopy, flexible, transoral; with biopsy, single or multiple CPT copyright 2017 [employer]. All rights reserved. The codes documented in this report are preliminary and upon non profit financial controller review may be revised to meet current [...] Lyman DO Date Dictated: 12/23/21609 Date Transcribed: Insight Leader: ANA Signed Normal [facility] H Pylori (initial)on 022 H Pylori (initial) PHYSICIAN [place] [address] SPECIMEN INFORMATION: Tissue Source: A ??? Antrum biopsy Clinical Info: GERD, family history of colon cancer Specimen Number: [id number] CPT code: 93292 METHODOLOGY: Deparaffinized sections of prefer/formalin-fixed tissue or [...] developed and their performance characteristics determined by [facility]. They may not have been cleared or approved by the U.S. Food and Drug Administration. The FDA has determined that such clearance or approval is not necessary. The above immunohistochemical/dualISH markers are ordered and reviewed by the Pathologist. INTERPRETATION: A. Antrum, biopsy: Negative for Helicobacter pylori organisms. AM:shan 12/24/2021 Signed (signature on file) Dr. Andrea Gardner, DO 12/24/21 1324 Normal [facility] Comment on above: Performed By: #### P H.PYLORI #### [facility] [address] [place], [address] ,Urineon 12-23-2021 Beta HCG ( test) Ql (U) Negative Normal [facility] Comment on above: Order Comment: urine in lab Result Comment: Very dilute urine specimens, as indicated by a low specific gravity, may not contain billing customer service representative levels of hCG. If is still suspected, a first morning urine specimen should be collected 48 hours later and tested. Performed By: #### L 400.7600 #### [facility] [address] [place], [address] Special Stain Group IIon Special Stain Group II OPERATION: Colono scopy, EGD ([facility]) with biopsies PRE-OP DIAGNOSIS: GERD, family history [...] for Helicobacter pylori will be reported separately ([id number]). B. Alcian blue/PAS stain with matched control [...] one cassette. / SJ:shan 12/23/2021 TC:3 CPT: 76563 x4, [address] Signed (signature on file) Dr. Andrea Gardner DO 12/24/21 1231 Normal [facility] Comment on above: Performed By: #### P SSII #### [facility] [place], [address] Vital Signs Date Time Vital Sign Value Performing Clinician Neri cassidy 11-15-2023 10:58-0400 Body temperature 97.2 [degF] Iram Athy PA-C Work Phone: [facility] 11-15-2023 10:58-0400 Body weight 85.7 kg Iram Athy PA-C Work Phone: [facility] 11-15-2023 10:58-0400 Diastolic blood pressure 82 mm[Hg] Iram Athy PA-C Work Phone: [facility] 11-15-2023 10:58-0400 Heart rate 88 /min Iram Athy PA-C Work Phone: [facility] 11-15-2023 10:58-0400 Respiratory rate 16 /min Iram Athy PA-C Work Phone: [facility] 11-15-2023 10:58-0400 SaO2% (BldA) [Mass fraction] 98 % Iram Athy PA-C Work Phone: [facility] 11-15-2023 10:58-0400 Systolic blood pressure 142 mm[Hg] Iram Urbano PA-C Work Phone: [facility] 10-30-2022 12:46-0400 Body temperature 98 [degF] [facility] 10-30-2022 12:46-0400 Diastolic blood pressure 67 mm[Hg] [facility] 10-30-2022 12:46-0400 Heart rate 96 /min [facility] 10-30-2022 12:46-0400 Respiratory rate 16 /min [facility] 10-30-2022 12:46-0400 SaO2% (BldA) [Mass fraction] 96 % [facility] 10-30-2022 12:46-0400 Systolic blood pressure 129 mm[Hg] [facility] 10-30-2022 08:35-0400 Body height 165.1 cm [facility] 10-30-2022 08:35-0400 Body mass index (BMI) [Ratio] 31.1 kg/m2 [facility] 10-30-2022 08:35-0400 Body weight 84.82 kg [facility] 10-03-2022 16:14-0400 Body temperature 98.7 [degF] [facility] 10-03-2022 16:14-0400 Diastolic blood pressure 81 mm[Hg] [facility] 10-03-2022 16:14-0400 Heart rate 102 /min [facility] 10-03-2022 16:14-0400 Respiratory rate 18 /min [facility] 10-03-2022 16:14-0400 SaO2% (BldA) [Mass fraction] 100 % [facility] 10-03-2022 16:14-0400 Systolic blood pressure 106 mm[Hg] [facility] 10-03-2022 08:07-0400 Body weight 86.8 kg [facility] 10-03-2022 00:31-0400 Body mass index (BMI) [Ratio] 31.8 kg/m2 [facility] Encounters Encounter Date Encounter Type Care Provider Facility Start: 04-27-2024 End: 04-27-2024 ambulatory RAUN WILLIS [facility] Start: 04-27-2024 Encounter for genera l adult medical examination without abnormal findings ARUN WILLIS [facility] Start: 03-14-2024 End: 03-14-2024 ambulatory ARUN WILLIS [facility] Start: 11-15-2023 End: 11-15-2023 ambulatory Facility:[facility] Start: 11-15-2023 End: 11-15-2023 Patient encounter procedure Iram Urbano PA-C Work Phone: [facility] Comment on above: Acute right-sided th oracic back pain (Primary Dx); Pleuritic pain Start: 05-13-2023 End: 05-13-2023 ambulatory ARUN WILLIS [facility] Start: 05-06-2023 End: 05-11-2023 ambulatory ARUN Pham [facility] Facility:A Start: 05-06-2023 End: 05-06-2023 ambulatory ARUN WILLIS [facility] Start: 11-19-2022 End: 11-20-2022 ambulatory WENDI SHAY MD Facility:B Start: 11-05-2022 End: 11-05-2022 Patient encounter procedure [facility] Start: 11-05-2022 End: 11-05-2022 ambulatory No Primary Care Physician [facility] Work Phone: Start: 10-30-2022 End: 10-30-2022 ambulatory No Primary Care Physician Facility:[facility] Start: 10-30-2022 End: 10-30-2022 Admission to same day surgery center [facility] Start: 10-30-2022 End: 10-30-2022 ambulatory [facility] Work Phone: Start: 10-03-2022 End: 10-03-2022 ambulatory DEFINED NOT Facility:[facility] Start: 10-02-2022 End: 10-03-2022 Evaluation and management of inpatient [facility] Start: 01-06-2022 End: 01-06-2022 ambulatory Conrad Lyman Facility:[facility] Start: 12-23-2021 End: 12-23-2021 ambulatory Conrad Friend Facility:[facility] Procedures Date Procedure Procedure Detail Performing Clinician Start: 11-15-2023 Urnls dip stick/tabl et rgnt auto w/o microscopy Iram Urbano PA-C Work Phone: Start: 11-05-2022 Diagnostic radiograp hy of abdomen Start: 10-30-2022 Cysto,Ureteroscopy,R etro,D il,Ext,Stent (Right) Start: 10-30-2022 Fluoroscopic guidance Start: 10-03-2022 Fluoroscopic guidance Plan of Treatment Date Care Activity Detail Author Start: 01-17-2024 Influenza vaccination Influenz a Vaccine (Season Ended) [facility] Start: 05-18-2023 Behavioral Health Screening Be havioral Health Screening [facility] Start: 01-16-2023 Covid-19 Vaccine ( season) Covid-19 Vaccine ( season) [facility] Start: 10-30-2022 Anes lithotrp xtrcor p shock wave w/o water bath ANESTH KIDNEY STONE DESTRUCT [facility] Start: 10-30-2022 Cysto w/ureteroscopy w/rmvl/manj stones CYSTOURETERO W/STONE REMOVE [facility] Start: 10-30-2022 Cysto/uretero w/lith otripsy &indwell stent insrt CYSTO/URETERO W/LITHOTRIPSY [facility] Start: 10-30-2022 Patient discharge [facility] Start: 10-03-2022 Patient discharge [facility] Start: 10-03-2022 Oxygen therapy [facility] Start: 10-03-2022 Admission procedure [facility] Start: 10-03-2022 Ambulation without limitation [facility] Start: 10-03-2022 Assessment of risk o f venous thromboembolism [facility] Start: 10-03-2022 Insertion of cathete r into peripheral vein [facility] Start: 10-03-2022 Measuring intake and output [facility] Start: 10-03-2022 Providing care accor ding to standard [facility] Start: 10-03-2022 End: 10-03-2022 [facility] Start: 10-03-2022 Following clinical p athway protocol [facility] Start: 10-02-2022 Anes transurethral w/urethrocystoscopy nos ANESTH BLADDER SURGERY [facility] Start: 10-02-2022 Cysto w/insert urete ral stent CYSTOSCOPY AND TREATMENT [facility] Start: 10-02-2022 Cystourethroscopy wi th biopsy CYSTOSCOPY W/BIOPSY(S) [facility] Start: 2020 Shingrix Vaccine (1 of 2) Esparza grix Vaccine (1 of 2) [facility] Start: 2015 Diabetes Screening Diabetes Screenin g [facility] Start: 2015 Lipid panel Lipid Screening [facility] Start: 2015 Screening for malign ant neoplasm of colon [facility] Start: 2010 Screening for malign ant neoplasm of breast Mammogram Screening [facility] Start: 1991 Screening for malign ant neoplasm of cervix Cervical Cancer Screening [facility] Start: 1989 Hepatitis B Vaccine (1 of 3 - 19+ 3-dose series) Hepatitis B Vaccine (1 of 3 - 19+ 3-dose series) [facility] Start: 1989 Urine microalbumin profile DTa P,Tdap,Td Vaccine (1 - Tdap) [facility] Start: 1988 Hepatitis C screening Hepatitis C Sc rebecca [facility] Start: 1988 HIV screening HIV Screening [place] Bacteria identified in Urine by Culture URINE CULTURE Microbiology Routine Acute right-sided thoracic back pain Ordered: 11/15/2023 [facility] Work Phone: Comment on above: Ordered: 11/15/2023 Calculus analysis [facility] Measurement of weigh t of calculus [facility] Origin of Stone [facility] Patient referral [facility] Work Phone: Specimen color determination [facility] Payers Date Payer Category Payer Unknown [id number] 2021 Self-pay [id number] 2021 Unknown [id number] 2018 Unknown MMO MMO [employer]PER[employer] PPO [id number] 2018-Present [phone] [address] [place] [address] PPO [id number] 2018 Unknown [id number] 1970 Unknown [id number]. 627 1970 Unknown [id number] [id number]. 627 1970 Unknown [id number] [id number]. 651 1970 Unknown [id number] 2.840.1.359916.3.579.2. 651 1970 Unknown [id number] 2.840.1.292427.3.579.2. 651 1970 Unknown [id number] [id number]. 651 Private Health Insurance [id number] Unknown [facility] [id number] Unknown [facility] [id number] Unknown [id number]. 462 Unknown [id number] [id number]. 462 Unknown [id number] [id number]. 462 Unknown [id number] [id number]. 462 Unknown [id number] [id number]. 462 Unknown [id number]. 462 Social History Date Type Detail Facility Start: 10-23-2022 Tobacco smoking status NHIS Unknown if ever smoked [facility] Start: 1970 Sex Assigned At Female [facility] Start: 11-15-2023 Tobacco smoking status NHIS Never smoked tobacco [facility] Start: 11-15-2023 Tobacco use and exposure Smokeless tobacco non-user [facility] Start: 11-15-2023 History of Social function [facility] Start: 11-15-2023 Tobacco use panel [facility] Start: 1970 Sex Assigned At Not on file [facility] NEGATED: Highlighted row [facility] Medical Equipment Procedure Code Equipment Code Equipment Origin al Text Equipment Identifier Dates Cystoscopy, with retrograde pyelogram, ureteroscopy, laser procedure, and stent inser STENT,URETERAL PIGTAIL [id number] FDA Start: 10-03-2022 Cystoscopy, with retrograde pyelogram, ureteroscopy, laser procedure, and stent inser STENT,URETERAL PIGTAIL [id number] FDA Start: 10-03-2022 Polymeric ureter al stent [id number] FDA Start: 10-30-2022 Goals Date Patient Goal Desired Activity /State Functional Status Date Assessment Result Facility 10-03-2022 Functional status Ambulates;Up ad aleta [facility] Work Phone: Mental Status Date Assessment Result Facility 10-30-2022 Cognitive function Voice/Name [facility] Work Phone: 10-03-2022 Cognitive function Level Of Cons ciousness Awake;Alert;Appropriate;Follow s Commands [facility] Work Phone: 10-03-2022 Cognitive function Voice/Name [facility] Work Phone: 10-03-2022 Cognitive function Appropriate;Cooperativ e [facility] Work Phone: Progress note 11-15-2023 Note Date & Type Note Facility 11-15-2023 Note HNO ID: [id number] Author: IRAM URBANO PA-C Service: ? Author Type: Physician Cast Associate Type: Progress Notes Filed: 11/15/2023 11:23 Note Text: This note was created using [employer]. Subjective Anne Marie Odom is a 53 [...] work this up, she will go to [facility] ED to be seen. ER passport sent. - UA DIP, URINE (POC) - URINE CULTURE 2. Pleuritic pain - ICD9: 786.52, ICD10: R07.81 Iram Urbano PA-C [facility] History of Present illness Narrative 11-15-2023 Iram Urbano PA-C - 11/15/2023 11:15 AM EDT Note Date & Type Note Facility 11-15-2023 History of Presen t illness Narrative This note was created using [employer]. Subjective Anne Marie Odom is a 53 [...] work this up, she will go to [facility] ED to be seen. ER passport sent. - UA DIP, URINE (POC) - URINE CULTURE 2. Pleuritic pain - ICD9: 786.52, ICD10: R07.81 Iram Urbano PA-C documented in this encounter [facility] Discharge summary 10-30-2022 Note Date & Type Note Facility 10-30-2022 Discharge summary Note Date/Time October 30, 2022 9:02 am [facility] Medical Records Department [address] [place] [address] Instructions for Home/Discharge Instructions 10/30/22 0902 MR#: [id number] Acct: [id number] Name: ANNE MARIE ODOM Rep #:[id number] : 1970 52 From: Macarena Pham PCP: Care Physician,No [place]charge Instructions Diet Discharge Diet: No restrictions [...] Pain) 7 Days Qty: 20 0RF Continued gqylymqwqtqy-Wk-shzn-minerals 18-0.4 mg Tablet 1 tab PO DAILY [...] CC: No Primary Care Physician ~ Signed [facility] Work Phone: Procedure note 10-30-2022 Note Date & Type Note Facility 10-30-2022 Procedure note [facility] Evaluation note 10-16-2022 Note Date & Type Note Facility 10-16-2022 Evaluation note Diagnosis Onset Date Ureteral calculus October, acute Flank pain resolved [facility] Work Phone: Clinical Note 10-03-2022 Note Date & Type Note Facility 10-03-2022 Note [facility] Medical Records Department [address] [place] [address] History Physical Exam 10/03/22 1104 MR#: [id number] Acct: [id number] Name: ANNE MARIE ODOM Rep #: [id number] : 1970 52 From: Macarena Driscoll MD PCP: NOT,DEFINED Status:ADM MARY [place] [facility] [id number] HPI - General General Date of Admission: 10/02/22 Date of Service: 10/03/22 Chief Complaint: Right flank pain, abdominal pain, nausea and vomiting HPI Narrative The patient is a 52-year-old female [facility] [address] scan was performed for flank pain and nausea and vomiting revealing a 6 mm distal right ureteral calculus. She presented to the emergency room in [place] with uncontrolled pain, nausea and vomiting. Her pain is still not well controlled despite intravenous medication administration. We discussed op tions and she has decided to proceed with surgical intervention. Informed consent was obtained. [facility] Medical History Anxiety Back pain Flank pain [...] primary doctor 12/19/21 [History Last Taken 10/02/22] exdjridstzsj-Pj-qyns-minerals 18 mg-0.4 mg tablet 1 tab PO [...] Blood Pressure Pos (more content not included)... [facility] Clinical Note 12-23-2021 Note Date & Type Note Facility 12-23-2021 Note [facility] Medical Records Department [address] [place] [address] History Physical Exam 12/23/21 0634 MR#: [id number] Acct: [id number] Name: ANNE MARIE ODOM Rep #: [id number] : 1970 51 From: Conrad Friend DO PCP: Dr. Dot Rabago, DO Status:[facility] Location: [place] [address] History and Physical Date of Admission: 12/23/21 [...] Appearance: average body habitus and well nourished [facility] Head: normal to inspection Ears: hearing grossly [...] Affect: normal affect Quality Reporting Tobacco Screening ([facility] 138) Smoking Status: Never smoker Assessment and [...] Dot Rabago, DO; Conrad Lyman, DO Signed [facility] Evaluation note Note Date & Type Note Facility Evaluation note Diagnosis Acute right-sided thoracic back pain- Primary Pleuritic pain Painful respiration documented in this encounter [facility] Discharge instructions Note Date & Type Note Facility Hospital Discharge instructions Additional Instructions Implant Used?: Yes [facility] Work Phone: Chief Complaint and Reason [...] October 23, 2022 1 0:23am Power of Lead Bi Developer No October 23, 2022 10:23am Summary Purpose [...] section and content) DATE CREATED AUTHOR 11/11/2022 [facility] DATE CREATED AUTHOR AUTHOR'S ORGANIZ ATION 05/19/2023 [facility] DATE CREATED AUTHOR AUTHOR'S ORGANIZ ATION 04/30/2024 [facility] DATE CREATED AUTHOR AUTHOR'S ORGANIZ ATION 05/02/2024 [facility] Source Comments (unrecognize d section and content) In the event this informatio n is protected by the Federal Confidentiality of Alcohol and Drug Abuse Patient Records regulations: The Federal rules restrict any use of the information to criminally investigate or prosecute any alcohol or drug abuse patient.[facility] Reason for Visit (unrecogniz ed section and [...] BE BASED ON THE PRIMARY CLINICAL RECORDS. [employer] Android POS [facility] [facility] provides no warranty or guarantee of the accuracy or completeness of information in this document.
[2024-11-30] VITALS (13 sets, daily range): BP systolic 103–136; BP diastolic 62–92; PULSE 88–100; RESP 15–18; TEMP 36.3–37.2; O2SAT 93–99
[2024-11-30 04:31] LABS: Hematocrit 36.6 % (37-47); Hemoglobin 12.6 g/dL (12.0-15.0); Mean Corp Hgb Conc 34.4 g/dL (32-36); Mean Corpuscular Volume 87.6 fL (81-99); Mean Platelet Vol. 11.2 fl (6.2-12.0); Platelet Count 262 K/mm3 (150-450); RBC Distribution Width CV 12.6 % (11.6-14.6); RBC Distribution Width SD 40.2 fl (35.1-43.9); Red Blood Count 4.18 M/mm3 (4.2-5.4); White Blood Count 14.8 K/mm3 (4.4-11.0)
[2024-11-30 04:59] LABS: Anion Gap 9 (5-15); BUN 11 mg/dL (4-19); BUN/Creat Ratio 11.2 RATIO (10-20); Calcium,Total 8.0 mg/dL (7.6-11.0); Carbon Dioxide 18.8 mmol/L (21.0-32.0); Chloride 108 mmol/L (98-108); Estimated Creatinine Clearance 69.43 ml/min (50-250); Glucose 134 mg/dL (70-99); Potassium 3.6 mmol/L (3.3-5.1)
[2024-11-30] MEDS: 0.9% Normal Saline (1000mL) 1,000 ML 50 ML IV (10:26)
--- NOTE | 2024-11-30 16:29 | PCM.PRE.AN2 ---
ASA Classification* ASA Classification ASA Classification: 2 Assessment & Plan Anesthesia* Anesthesia Assessment Anesthesia Assessment: Discussed sedation and/or anesthesia options, risks, benefits, and alternatives with patient/parents/legal guardian/POA. Questions invited. The patient/parents/legal guardian/POA seems to understand and agrees to proceed with anesthesia plan. Reviewed the physical assessment, medical history, allergy history and patient home medications list prior to surgery/procedure/anesthetic and documented any changes. Performed airway and anesthesia risk assessments. Anesthesia Type Anesthesia Type: General History Source History Obtained from:: Patient and Chart Anesthesia Focused Assessment* Temperature: 98.6 F Pulse Rate: 96 Blood Pressure: 129/66 Respiratory Rate: 18 Pulse Ox: 96 Oxygen Delivery Method: Room Air Airway Assessment Mouth opens: >3 cm Mallampati Score: I Teeth Condition: Dentures, Full, Lower and Upper Labs Anesthesia Preop lab: CBC WBC 14.8 K/mm3 (4.4-11.0) H 11/30/24 03:43 11/30/24 RBC 4.18 M/mm3 (4.2-5.4) L 11/30/24 03:43 11/30/24 Hgb 12.6 g/dL (12.0-15.0) 11/30/24 03:43 11/30/24 Hct 36.6 % (37-47) L 11/30/24 03:43 11/30/24 Plt Count 262 K/mm3 (150-450) 11/30/24 03:43 11/30/24 CHEMISTRY Potassium 3.6 mmol/L (3.3-5.1) 11/30/24 03:43 11/30/24 Sodium 136 mmol/L (133-145) 11/30/24 03:43 11/30/24 BUN 11 mg/dL (4-19) 11/30/24 03:43 11/30/24 Creatinine 1.01 mg/dL (0.70-1.20) 11/30/24 03:43 11/30/24 Glucose 134 mg/dL (70-99) H 11/30/24 03:43 11/30/24 TSH 3.320 uIU/mL (0.300-4.200) 11/30/24 03:43 11/30/24 COAG PT 14.6 SECONDS (11.9-14.4) H 09/30/12 14:45 09/30/12 HCG, Quant 3 mIU/mL (<9 non-preg) 03/18/12 11:22 03/18/12 Urine Test Negative Negative 10/30/22 08:15 10/30/22 Pre-Assessment Diagnosis/Proposed Procedure Planned Operative Procedure(s): ESWL, possible ureteral stent Anesthesia History 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 When Was Last Pacemaker Check QUESTION #4 FULL TEXT: You/Your Family Experience fever (hyperthermia) with Anesthesia Last Oral Intake Last Oral intake: Last Oral Intake NPO since Meds taken in AM with sips of water? 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 Has anyone observed you stop No 11/29/24 14:10 breathing during sleep? STOP Results Negative 11/29/24 14:10 QUESTION #5 FULL TEXT : Do you snore loudly (louder than talking or can be heard through closed doors)? 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 Specify any problems Hx of Preganancy in last 3 No 11/29/24 14:10 Months Nurse Filling Out Transfusion AWHIMS 11/29/24 14:10 & Questions: Date: 11/29/24 11/29/24 14:10 Time: 15:00 11/29/24 14:10 Patient unable to answer at this time (ie. 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: /Reproductive Hx- driver lifter of sanitation truck Hx Now No 11/30/24 00:56 Gestational Age (in weeks): EDC: Hx Hx Para Hx Section SAB No 10/23/22 10:23 Active Medications Active Medications: Current Medications Generic Name Dose Route Start Last Admin Trade Name Freq PRN Reason Stop Dose Admin Acetaminophen 650 mg 11/29/24 16:26 Acetaminophen 325 Mg Tablet PO Q6H PRN PRN Pain 1-10 or Fever Hydromorphone HCl 1 mg 11/29/24 14:10 11/30/24 12:38 Hydromorphone 1 Mg/Ml Syringe IV 1 mg Q2H PRN PRN Administration Pain Score 6-10 Sodium Chloride 1,000 mls @ 50 mls/hr 11/29/24 14:20 11/30/24 10:26 IV 50 mls/hr .Q20H ELLA Administration Sodium Chloride 250 mls @ 15 mls/hr 11/29/24 16:19 IV .[id number] PRN Saline Flush Sodium Chloride 250 mls @ 15 mls/hr 11/29/24 16:19 IV .[id number] PRN Additional IVPB Infusion Ketorolac Tromethamine 15 mg 11/29/24 14:10 11/30/24 10:26 Ketorolac 15 Mg/Ml Vial IV 12/04/24 14:11 15 mg Q6H PRN PRN Administration Pain Score 1-10 Levothyroxine Sodium 100 mcg 11/30/24 06:00 11/30/24 05:27 Levothyroxine 100 Mcg Tablet PO Not Given DAILY@0600 ELLA Ondansetron HCl 4 mg 11/29/24 16:26 11/29/24 16:47 Ondansetron 4 Mg/2 Ml Vial IV 4 mg Q6H PRN PRN Administration NAUSEA/VOMITING Oxycodone HCl 5 mg 11/29/24 14:10 Oxycodone 5 Mg Tablet PO Q4H PRN PRN Pain Score 4-10 Prochlorperazine Edisylate 10 mg 11/29/24 16:26 11/29/24 18:47 Prochlorperazine 10 Mg/2 Ml Vial IV 10 mg Q6H PRN PRN Administration NAUSEA/VOMITING Sodium Chloride 10 - 40 ml 11/29/24 16:19 0.9% Saline Lock 10 Ml Syringe IV UD PRN SALINE FLUSH PFSH Medical History Kidney stone Restless legs Arthritis Non-smoker Kidney stones Flank pain Ureteral calculus (~10/30/22) Anxiety Wears dentures Hypothyroid High cholesterol Back pain Gastric reflux Home Medications ?Medication ?Instructions ?Recorded ?Last Taken ?Type atorvastatin 20 mg tablet 20 mg PO DAILY Check with primary 12/19/21 11/28/24 History doctor levothyroxine 100 mcg tablet 100 mcg PO DAILY Check with 12/19/21 11/28/24 History primary doctor owcfndobpdqx-Ri-ugqd-minerals 18 1 tab PO DAILY Check with primary 12/19/21 09/26/22 History mg-0.4 mg tablet doctor Allergy/AdvReac Type Severity Reaction Status Date / Time No Known Allergies Allergy Verified 10/30/22 08:34 Surgical History No pertinent past surgical history Social History Smoking Status: Never smoker Review of Systems (Anesthesia) ROS Narrative System reviewed and no additional complaints, except as documented. Physical Exam Const alert and oriented x3 HEENT Teeth and Gingiva: dentures and edentulous Resp normal respiratory effort Cardio regular rate
[2024-11-30] MEDS: Lactated Ringers 1,000 ML 15 ML IV (16:40)
--- NOTE | 2024-11-30 16:44 | PCM.PN.GU ---
Subjective Subjective Patient is planned to go to surgery today for her kidney stones Objective Data Objective Data Vital Signs: Vital Signs Temp Pulse Resp BP Pulse Ox O2 Del Method 98.6 F 96 18 129/66 H 96 Room Air 11/30/24 16:30 11/30/24 16:30 11/30/24 16:30 11/30/24 16:30 11/30/24 16:30 11/30/24 16:30 Oxygen Delivery Method Room Air Weight: 87.18 kg Body Mass Index (BMI) 31.9 Intake & Output: Intake and Output for Last 24 Hours 11/28/24 11/29/24 11/30/24 23:59 23:59 23:59 Intake Total 70.83 / 70.83 1204.17 / 1204.17 Balance 70.83 / 70.83 1204.17 / 1204.17 Lab / Micro Data 11/30/24 03:43 11/30/24 03:43 Labs: Laboratory Results - last 24 hr 11/30/24 03:43: WBC 14.8 H, RBC 4.18 L, Hgb 12.6, Hct 36.6 L, MCV 87.6, MCH 30.1, MCHC 34.4, RDW Std Deviation 40.2, RDW Coeff of Vidhi 12.6, Plt Count 262, MPV 11.2, Sodium 136, Potassium 3.6, Chloride 108, Carbon Dioxide 18.8 L, Anion Gap 9, BUN 11, Creatinine 1.01, Estim Creat Clear Calc 69.43, Est GFR (MDRD) Non-Af 66, BUN/Creatinine Ratio 11.2, Glucose 134 H, Calcium 8.0, TSH 3.320 Radiography Diagnostic Testing: Radiology Impression KUB X-Ray 11/29/24 16:00 IMPRESSION: 1. Interval removal of the previous right nephroureteral stent. 2. Previously seen 4 mm stone at the right UVJ no longer visualized. 3. Unchanged 9 mm stone within the left kidney. Reading Location: [id number]
[2024-11-30 17:07] LABS: Internal QC Validated? YES +Cl - CLEAR BKGD; Pregnancy, Urine Negative Negative; Record Kit Lot#,Urine Preg 962302
--- NOTE | 2024-11-30 17:24 | PCM.OPRPT ---
Operative Report (Standard) Operative Information Date of Procedure: 11/30/24 Pre-Operative Diagnosis: Obstructing left ureteral calculi and left kidney stone Post-Operative Diagnosis: The same with infected stone Surgery/Procedure Performed: Cystoscopy left stent placement steel pickler: No Type of Anesthesia: General RN Documented Start/Stop Times: Operation Date: 11/30/24 17:15 Case Time Into Pre-Op 11/30/24 16:18 Out of Pre-Op 11/30/24 17:00 Anesthesia Start 11/30/24 17:01 Into Room 11/30/24 17:01 Procedure Start 11/30/24 17:14 Procedure End 11/30/24 17:21 Procedure Start Time: 17:14 Procedure Stop Time: 17:25 Select all DRAINS/GRAFTS/IMPLANTS that apply: Drains Drain details: Left stent Estimated Blood Loss: None Specimen collected: No Description of surgery: This is a 54-year-old female transfer from an outside hospital for impacted stone and severe pain taken back to the operating room after smooth induction of anesthesia she underwent a prep and drape of the urethrovaginal area one of the bladder with a 21 Croatian rigid cystourethroscope original plan was to treat both the kidney stones but after I cannulated the ureter on the left side got a significant amount of purulent urine and pus coming out from the left kidney so that point I just placed a stent on the left side patient anesthetic reversed able to get her set up at a later date for shockwave lithotripsy and laser lithotripsy of the stone in the distal ureter and treatment of the stone in the kidney at a later date once her infection is cleared out she will stay overnight and then probably will send her home tomorrow with antibiotics. Surgical Findings: Purulent urine and infected urine coming from the left kidney after stent was placed Complications Complications: No Admit VTE Documentation VTE Present on Admission: No VTE Mechan Device Prophylaxis: SCD's VTE Pharm Prophylaxis ordered?: No
--- NOTE | 2024-11-30 17:51 | PCM.POST.ANE ---
Anesthesia: Postop Eval I Current Vital Signs Temperature: 97.3 F Pulse Rate: 96 Blood Pressure: 130/74 Respiratory Rate: 16 Pulse Ox: 96 Oxygen Delivery Method: Room Air Assessment Airway patent: No Spontaneous unlabored respirations: No Mental status: Awake and Calm nausea: No Vomiting: No Anesthesia Complication: No Fluid Hydration Crystalloid volume administer (ml): 250 Total IV fluid infused: 250 Progress Note Anesthesia document: Postop Eval 1 completed: Yes
--- NOTE | 2024-11-30 18:14 | PCM.POSTANE2 ---
Anesthesia Postop Eval I Sum Postop Eval Completion status Anesthesia document: Postop Eval 1 completed: Yes Anesthesia Postop Eval I Summary Anesthesia Postop Eval I Summary: Anesthesia Postop Eval I: Assessment Summary Airway patent No 11/30/24 17:52 Spontaneous unlabored No 11/30/24 17:52 respirations Mental status Awake,Calm 11/30/24 17:52 nausea No 11/30/24 17:52 Vomiting No 11/30/24 17:52 Anesthesia Postop Eval I: Fluid Summary Crystalloid volume administer 250 11/30/24 17:52 (ml) Colloids volume administered ( ml) Blood Product volume administered (ml) Total IV fluid infused 250 11/30/24 17:52 Anesthesia Postop Eval I: Summary Notes Anesthesia Complication No 11/30/24 17:52 Anesthesia Complication Comment: Post-operative progress note Anesthesia: Postop Eval II Evaluation Mental status: Awake and Calm Pain Level: 2 nausea: No Vomiting: No Complications Anesthesia Complication: No
[2024-11-30] MEDS: 0.9% Normal Saline (1000mL) 1,000 ML 125 ML IV (18:30)
[2024-12-01] MEDS: 0.9% Normal Saline (1000mL) 1,000 ML 125 ML IV (02:30)
[2024-12-01 04:00] VITALS: BP 123/65; PULSE 81; RESP 15; TEMP 36.8; O2SAT 97
[2024-12-01 06:03] LABS: Hematocrit 35.5 % (37-47); Hemoglobin 12.2 g/dL (12.0-15.0); Immature Granulocytes Count 0.060 X10^3/uL (0.0-0.0); Mean Corp Hgb Conc 34.4 g/dL (32-36); Mean Corpuscular Volume 86.4 fL (81-99); Mean Platelet Vol. 11.5 fl (6.2-12.0); NRBC Flagged by Analyzer 0 % (0-5); Platelet Count 282 K/mm3 (150-450); RBC Distribution Width CV 12.5 % (11.6-14.6); RBC Distribution Width SD 39.5 fl (35.1-43.9); Red Blood Count 4.11 M/mm3 (4.2-5.4); White Blood Count 11.3 K/mm3 (4.4-11.0)
[2024-12-01 06:30] LABS: Anion Gap 10 (5-15); BUN 8 mg/dL (4-19); BUN/Creat Ratio 12.2 RATIO (10-20); Calcium,Total 8.3 mg/dL (7.6-11.0); Carbon Dioxide 19.7 mmol/L (21.0-32.0); Chloride 107 mmol/L (98-108); Estimated Creatinine Clearance 109.57 ml/min (50-250); Glucose 112 mg/dL (70-99); Potassium 3.8 mmol/L (3.3-5.1)
--- NOTE | 2024-12-01 07:32 | PCM.DC.SUM ---
Providers Date of Admission: 11/29/24 Date of Discharge: 12/01/24 Primary Care Physician: No Primary Care Phys Reason For Visit: KIDNEY STONE & PAIN Diagnosis Discharge Diagnosis (1) Ureteral calculus: Status: Acute Code(s): N20.1 - Calculus of ureter Plan: admit for kidneys stone, npo plan for surgery tomorrow for stent and ESWL, KUB today (2) Kidney stone: Status: Acute Code(s): N20.0 - Calculus of kidney (3) Family history of colon cancer: Status: Chronic Code(s): Z80.0 - Family history of malignant neoplasm of digestive organs (4) GERD (gastroesophageal reflux disease): Status: Chronic Code(s): K21.9 - Gastro-esophageal reflux disease without esophagitis (5) Diverticulosis: Status: Acute Code(s): K57.90 - Diverticulosis of intestine, part unspecified, without perforation or abscess without bleeding Medications at Discharge Home Medications atorvastatin 20 mg tablet 20 mg PO DAILY Check with primary doctor 12/19/21 levothyroxine 100 mcg tablet 100 mcg PO DAILY Check with primary doctor 12/19/21 qrydjcaykydb-Yi-ifih-minerals 18 mg-0.4 mg tablet 1 tab PO DAILY Check with primary doctor 12/19/21 ciprofloxacin HCl 500 mg tablet (Cipro) 500 mg PO BID #14 tabs 11/30/24 oxycodone 5 mg tablet 5 mg PO Q6H PRN pain 3 days #14 tabs 11/30/24 Hospital Course Operations - (Cystoscopy and left stent placement for obstructing stone and infection) Summary of Care Provided Minutes Spent on Discharge: 20 Hospital Course: Patient was admitted for pain control underwent surgery and stent placement was found to have an infection she will go home today with a stent and antibiotics by office call for instructions Physical Exam Const alert and oriented x3 General Appearance: cooperative HEENT normocephalic and head/scalp atraumatic Eyes PERRL and EOMs intact bilaterally Neck supple, no JVD and no carotid bruits Resp normal respiratory effort, normal air movement and clear to auscultation bilaterally Cardio regular rate and no murmurs GI normal to inspection, nondistended, normoactive bowel sounds and soft to palpation Extremity normal capillary refill General Extremity: no tenderness to palpation of joints or extremities; Negative for edema Skin no rashes or lesions noted and no wounds General Skin Exam: no breakdown Neuro CN's II-XII intact bilaterally Psych affect normal Appearance: appropriate Weight / BMI Weight Weight: 87.18 kg Body Mass Index (BMI) 31.9 ABG / Lab / Microbiology Data 12/01/24 05:05 12/01/24 05:05 Laboratory: Laboratory Results - last 24 hr 11/30/24 16:26: Urine Test Negative 12/01/24 05:05: WBC 11.3 H, RBC 4.11 L, Hgb 12.2, Hct 35.5 L, MCV 86.4, MCH 29.7, MCHC 34.4, RDW Std Deviation 39.5, RDW Coeff of Vidhi 12.5, Plt Count 282, MPV 11.5, Immature Gran % (Auto) 0.500, Neut % (Auto) 79.5 H, Lymph % (Auto) 12.4 L, [place] % (Auto) 7.1, Eos % (Auto) 0.2, Baso % (Auto) 0.3, Absolute Neuts (auto) 8.9 H, Absolute Lymphs (auto) 1.40, Nucleated RBC % 0, Sodium 137, Potassium 3.8, Chloride 107, Carbon Dioxide 19.7 L, Anion Gap 10, BUN 8, Creatinine 0.64 L, Estim Creat Clear Calc 109.57, Est GFR (MDRD) Non-Af 105, BUN/Creatinine Ratio 12.2, Glucose 112 H, Calcium 8.3 D/C Instructions DC O2, CPAP, BIPAP Needs Home O2 Discharge instructions: No Meaningful Use Info Meaningful Use Meaningful Use Diagnoses (Choose all that apply): None applicable Discharge Plan Admission Admit Date/Time: 11/29/24 14:07 Primary Reason for Your Visit: left stent for infected stone Attending Provider: Mike Ashley Primary Care Provider: Care Physician,No Primary Discharge Orders/Prescriptions Prescriptions: New ciprofloxacin HCl [Cipro] 500 mg tablet 500 mg PO BID Qty: 14 0RF oxycodone 5 mg tablet 5 mg PO Q6H PRN (Reason: pain) 3 Days Qty: 14 0RF Continued bnldgxteqyxy-Nl-obwg-minerals 18-0.4 mg Tablet 1 tab PO DAILY atorvastatin 20 mg tablet 20 mg PO DAILY levothyroxine 100 mcg Tablet 100 mcg PO DAILY Referrals / Follow Up: Mike Ashley MD [Med Staff - Active Staff] - Care Physician,No Primary [Primary Care Provider] - Disposition Disposition (needs filled in before D/C Order can be placed): Home, Self Care
--- NOTE | 2024-12-01 07:33 | DCINST_ITS ---
Discharge Instructions DC O2, CPAP, BIPAP needs Home O2 Discharge instructions: No Dressing / Incision Discharge Activity: Return to Normal Activity and May Not Drive (while taking narcotic pain medications.) Dressing / Incision Call your doctor if you observe: Fever of 101 or Higher Follow Up Care Please Follow Up With: Mike Ashley MD When: Call [phone] for an appointment Test Results: Test results from this visit will be discussed in further detail at your follow- up appointment, if applicable. Discharge Plan Admission Admit Date/Time: 11/29/24 14:07 Primary Reason for Your Visit: left stent for infected stone Attending Provider: Mike Ashley Primary Care Provider: Care Physician,No Primary Discharge Orders/Prescriptions Prescriptions: New ciprofloxacin HCl [Cipro] 500 mg tablet 500 mg PO BID Qty: 14 0RF oxycodone 5 mg tablet 5 mg PO Q6H PRN (Reason: pain) 3 Days Qty: 14 0RF Continued qepznbrkvrfg-Ft-uidp-minerals 18-0.4 mg Tablet 1 tab PO DAILY atorvastatin 20 mg tablet 20 mg PO DAILY levothyroxine 100 mcg Tablet 100 mcg PO DAILY Referrals / Follow Up: Mike Ashley MD [Med Staff - Active Staff] - Care Physician,No Primary [Primary Care Provider] - Disposition Disposition (needs filled in before D/C Order can be placed): Home, Self Care
[2024-12-01 10:00] VITALS: BP 110/68; PULSE 98; RESP 16; TEMP 36.6; O2SAT 97
--- NOTE | 2024-12-01 11:30 | CASEMGMT ---
RADHA HART note: Discharge order is in. RADHA HART to room. Pt known to this customs entry writer. Pt states has financial concerns and concerned about medical bills. Frances ALBARRAN, made aware. Pt aware Rx's have been sent to [facility] pharmacy. Pt states she has a ride coming to pick her up in about an hour. She denies having further discharge needs or concerns. Alexis CARPIO RN, CM
--- NOTE | 2024-12-01 12:27 | CASEMGMT ---
Social Work- SW met with pt to provide Nafisa Buckley community resource guide. Pt reports no other needs at this time. 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 SW provided encouragement and education on continued need for self-care as a caregiver, as well as actively and empathetically listening to pt responsibilities and needs. RAYO Dumont
[2024-12-01 12:36] VITALS: BP 128/81; PULSE 85; RESP 16; TEMP 36.7; O2SAT 98
--- NOTE | 2024-12-01 14:01 | PHA.DC.MC.R ---
Pharmacy [facility] Counseling Pharmacy Service has performed discharge medication reconciliation and counseling for this patient. 1. CIPROFLOXACIN 500MG PO BID X 7 DAYS 2. OXYCODONE 5MG PO Q6H PRN PAIN The patient's discharge medication list was reviewed for discrepancies and discrepancies were resolved. The patient was counseled on the following discharge medications and changes in medications for homegoing were reviewed. The Reason for Use, instructions for use, and potential side effects were reviewed for all new medications. The patient's questions regarding all of their medications were answered. The patient was able to verbally demonstrate an understanding of their discharge medications. Medications at Discharge Home Medications atorvastatin 20 mg tablet 20 mg PO DAILY Check with primary doctor 12/19/21 levothyroxine 100 mcg tablet 100 mcg PO DAILY Check with primary doctor 12/19/21 puxmolovybsg-El-algv-minerals 18 mg-0.4 mg tablet 1 tab PO DAILY Check with primary doctor 12/19/21 ciprofloxacin HCl 500 mg tablet (Cipro) 500 mg PO BID #14 tabs 11/30/24 oxycodone 5 mg tablet 5 mg PO Q6H PRN pain 3 days #14 tabs 11/30/24
== END 2024-12-01 14:56 | disposition home or self-care (01) ==
PROVIDERS: Anesthesiology; Admitting Provider Urology; PCP Nurse Practitioner Family; Referring Provider Urology; Visit Provider Urology
PROC: (CPT 50590; principal; 2024-11-30 17:05)
DX: N20.2 Calculus of kidney with calculus of ureter (principal); Z79.890 Hormone replacement therapy; E78.00 Pure hypercholesterolemia, unspecified; K21.9 Gastro-esophageal reflux disease without esophagitis; E03.9 Hypothyroidism, unspecified; Z79.899 Other long term (current) drug therapy
CPT/HCPCS: 52332; 00910; 36415; 74018; 80048; 81025; 84443; 85025; 85027; 93005; 96361; 96365; 96366; 96375; 96376; 99221; C1769; C2617; G0378; J0744; J2405